=== PATIENT | female | born 1945 | race Caucasian/White ===

== ENCOUNTER 2018-08-26 20:53 | Inpatient (IN) | payer MEDICAID ==
[~2018-08-26] VITALS: Ht 162.6 cm; Wt 68.0 kg
[~2018-08-26 20:53] MED LIST: LEVO0.1T32 PO; OMEP40EC14 PO; [UNRECOGNIZED DRUG - OTHER] PO
[2018-08-26 21:26] VITALS: BP 124/76
--- NOTE | 2018-08-26 21:31 | NUR ---
PT AMBULATORY TO ER LOBBY W/ STEADY GAIT IN STABLE CONDITION.
[2018-08-26 22:36] LABS: BASOPHILS % (AUTO) 0.4 % (0.0-2.0); EOSINOPHILS % (AUTO) 0.2 % (0.0-4.0); HEMATOCRIT 38.2 % (36-48); HEMOGLOBIN 12.8 g/dL (12.0-16.0); LYMPHOCYTES # (AUTO) 1.2 K/uL (2.5-16.5); MEAN CORPUSCULAR HEMOGLOBIN 30 pg (27-31); MEAN CORPUSCULAR HGB CONC 33 g/dL (33-37); MEAN CORPUSCULAR VOLUME 88.3 fL (80-94); MONOCYTES # (AUTO) 0.4 K/uL (0.8-1.0); MONOCYTES % (AUTO) 3.4 % (1.7-9.3); NEUTROPHILS # (AUTO) 9.7 K/uL (1.8-7.7); PLATELET COUNT (AUTO) 376 K/uL (140-450); RED BLOOD CELL COUNT(AUTO) 4.33 MIL/uL (4.20-5.40); WHITE BLOOD COUNT (AUTO) 11.4 K/uL (4.8-10.8)
[2018-08-26 22:46] LABS: ANION GAP 9.3 (8-16); CARBON DIOXIDE 33.7 mmol/L (21-32); CHLORIDE 100 mmol/L (98-107); CREATININE 0.7 mg/dL (0.6-1.3); GLUCOSE 125 mg/dL (74-106); SODIUM SERUM 140 mmol/L (136-145); UREA NITROGEN, BLOOD 18 mg/dL (7-18)
[2018-08-26 22:52] LABS: ALBUMIN 3.2 g/dL (3.4-5.0); ASPARTATE AMINOTRANSFERASE 24 U/L (15-37); LIPASE 303 U/L (73-393); TOTAL BILIRUBIN 0.4 mg/dL (0.0-1.0)
--- NOTE | 2018-08-26 23:01 | NUR ---
PT AMBULATED TO BED 12.
[2018-08-26 23:03] LABS: APPEARANCE,URINE SL CLOUDY (CLEAR); BILIRUBIN,URINE NEGATIVE (NEGATIVE); BLOOD, URINE NEGATIVE (NEGATIVE); COLOR,URINE YELLOW (YELLOW); LEUKOCYTE ESTERASE ,URINE TRACE (NEGATIVE); NITRITE, URINE POSITIVE (NEGATIVE); UGLUCOSE NEGATIVE (NEGATIVE)
--- NOTE | 2018-08-26 23:05 | NUR ---
PATIENT PRESENTS ER WITH C/O ABDOMINAL PAIN. PT STATED THAT SHE HAS BEEN HAVING N/V. PT IS A/OX4; PATIENT STATES PAIN OF 6/10 AT THIS TIME; VSS; PATIENT POSITIONED FOR COMFORT; HOB ELEVATED; BEDRAILS UP X2; BED DOWN. ER MD MADE AWARE OF PT STATUS. FAMILY AT BEDSIDE.
[2018-08-26 23:13] LABS: RBC,URINE NONE SEEN /HPF (0-5); WBC,URINE 0-5 (RARE) /HPF (0-5)
[2018-08-27] MEDS ORDERED: POTASSIUM CHLORIDE 10 MEQ TABER PO ONE (00:15)
[2018-08-27] MEDS ORDERED: NACL 0.9% 1,000 ML IV ONE (00:15)
[2018-08-27] MEDS ORDERED: ONDANSETRON 4 MG/2 ML VIAL IVP ONE (00:15)
--- NOTE | 2018-08-27 00:30 | NUR ---
PT AMBULATED TO THE RESTROOM. PT TOLERATED WELL.
[2018-08-27] MEDS ORDERED: LEVOFLOXACIN 500 MG/D5W PREMIX 100 ML IV ONE (00:40)
[2018-08-27] MEDS ORDERED: MORPHINE SULFATE 4 MG/ML SYR IVP PRN (01:15)
[2018-08-27] MEDS ORDERED: KETOROLAC 30 MG/ML VIAL IVP ONE (01:15)
[2018-08-27] MEDS ORDERED: ONDANSETRON 4 MG/2 ML VIAL IM/IVP PRN (01:15)
[2018-08-27] MEDS ORDERED: DOCUSATE SODIUM 100 MG GELCAP PO PRN (01:15)
[2018-08-27] MEDS ORDERED: DEXT 5% / NACL 0.45% 1,000 ML IV ONE (01:30)
--- NOTE | 2018-08-27 01:30 | NUR ---
PT IS HAVING SOME PAIN, ER MD MADE AWARE
[2018-08-27 01:39] LABS: BARBITURATE, URINE NEG. ng/ml (NEG <=200); BENZODIAZEPINE, URINE NEG. ng/mL (NEG <=200); CANNABINOID, URINE NEG. ng/mL (NEG <=50); COCAINE, URINE NEG. ng/mL (NEG <=300); OPIATE, URINE NEG. ng/mL (NEG <=2000); PHENCYCLIDINE SCREEN,URINE NEG. ng/mL (NEG <=25)
[2018-08-27 01:51] LABS: CHOL/HDL RATIO 3.2 (1-4.5); MAGNESIUM 1.8 mg/dL (1.8-2.4); PHOSPHORUS 3.6 mg/dL (2.5-4.9); THYROID STIMULATING HORMONE 7.92 uIU/mL (0.34-3.74)
[2018-08-27 02:08] LABS: PROTHROMBIN TIME 9.9 secs (10.8-13.4)
[2018-08-27] MEDS ORDERED: ALBUTEROL SULFATE/IPRATROPIU 3 ML SOL IH PRN (02:10)
[2018-08-27] MEDS ORDERED: POTASSIUM CHLORIDE 40 MEQ, LIDOCAINE MPF 1% - 5 mL VIAL 25 MG in NACL 0.9% 250 ML IV ONE (02:10)
--- NOTE | 2018-08-27 02:18 | NUR ---
Patient will be admitted to care of DR. AGUIRRE. Admited to TELEMETRY. Will go to room 123A. Belongings list completed. Report to PHIL JONES.
--- NOTE | 2018-08-27 02:18 | NUR ---
Pt report given to ,PHIL RN. Transfer of care at this time.VSS
--- NOTE | 2018-08-27 02:20 | NUR ---
RECEIVED REPORT FROM BOOK PACKER ANGÉLICA FOR CONTINUITY OF CARE. PT A/OX4 ON ROOM AIR, LATVIAN SPEAKING. PT AMBULATES WITH STEADY GAIT USING A CANE. SKIN IS INTACT. PT HAS A 20G IV TO LEFT FOREARM BY AC, ASYMPTOMATIC AND INTACT. VITAL SIGNS WITHIN NORMAL LIMITS. PT STABLE, DENIES HAVING ANY PAIN, NO SIGNS OF DISTRESS NOTED AT THIS TIME. PT POSITIONED FOR COMFORT. BED IN LOWEST POSITION, BED ALARM ON. WILL CONTINUE TO MONITOR. OBTAINED MRSA SWAB AND SENT TO LAB. CHANGED PT INTO YELLOW GOWN AND INITIATED FALL RISK PROTOCOL. PUT ALLERGIES ARMBAND ON PT WITH ALLERGY TO ACETAMINOPHEN WRITTEN ON IT, BUT THERE ARE NO FALL RISK YELLOW ARMBANDS AVAILABLE, CHARGE NURSE IS AWARE.
[2018-08-27] MEDS ORDERED: LIDOCAINE MPF 1% 5mL VIAL ONE (02:42)
[2018-08-27] MEDS ORDERED: LOSA50TA66 PO (02:44)
[2018-08-27 03:00] VITALS: BP 134/73
[2018-08-27] MEDS ORDERED: INFLUENZA VIRUS VACCINE QUAD 0.5 ML SYR IMVAC PRN (03:35)
--- NOTE | 2018-08-27 03:45 | NUR ---
INSERTED NG TUBE. PT TOLERATED WELL.
--- NOTE | 2018-08-27 03:46 | NUR ---
VERIFIED PLACEMENT OF NGT BY AUSCULTATING BUT SALES AND SUPPORT CENTER AGENT CHAO SAID SHE ALREADY SPOKE TO DR HUMPHREYS TO ORDER CXR TO VERIFY PLACEMENT.
--- NOTE | 2018-08-27 04:00 | NUR ---
VITAL SIGNS WITHIN NORMAL LIMITS. PT STABLE, DENIES HAVING ANY PAIN, NO SIGNS OF DISTRESS NOTED AT THIS TIME. PT POSITIONED FOR COMFORT. BED IN LOWEST POSITION, BED ALARM ON. WILL CONTINUE TO MONITOR.
[2018-08-27] MEDS ORDERED: NITROGLYCERIN 0.4 MG TAB SL ONE (04:55)
--- NOTE | 2018-08-27 05:27 | NUR ---
PT C/O INTERMITTENT RIGHT UPPER CHEST PAIN. MADE DR HUMPHREYS AWARE AND SHE ORDERED NITROSTAT FOR PT. ADMINISTERED NITROSTAT AND PT TOLERATED WELL.
[2018-08-27 06:18] LABS: ANION GAP 10.3 (8-16); BASOPHILS % (AUTO) 0.2 % (0.0-2.0); CARBON DIOXIDE 29.3 mmol/L (21-32); CHLORIDE 105 mmol/L (98-107); CREATININE 0.5 mg/dL (0.6-1.3); EOSINOPHILS % (AUTO) 0.2 % (0.0-4.0); GLUCOSE 99 mg/dL (74-106); HEMATOCRIT 30.2 % (36-48); HEMOGLOBIN 10.1 g/dL (12.0-16.0); LYMPHOCYTES # (AUTO) 0.9 K/uL (2.5-16.5); LYMPHOCYTES % (AUTO) 12.5 % (20.5-51.1); MEAN CORPUSCULAR HEMOGLOBIN 30 pg (27-31); MEAN CORPUSCULAR HGB CONC 34 g/dL (33-37); MEAN CORPUSCULAR VOLUME 88.6 fL (80-94); MONOCYTES # (AUTO) 0.4 K/uL (0.8-1.0); MONOCYTES % (AUTO) 5.9 % (1.7-9.3); NEUTROPHILS # (AUTO) 5.7 K/uL (1.8-7.7); NEUTROPHILS % (AUTO) 81.2 % (42.2-75.2); PLATELET COUNT (AUTO) 278 K/uL (140-450); POTASSIUM 3.6 mmol/L (3.5-5.1); RED BLOOD CELL COUNT(AUTO) 3.41 MIL/uL (4.20-5.40); RED CELL DISTRIBUTION WIDTH 13.5 % (11.6-13.7); SODIUM SERUM 141 mmol/L (136-145); UREA NITROGEN, BLOOD 14 mg/dL (7-18); WHITE BLOOD COUNT (AUTO) 7.1 K/uL (4.8-10.8)
[2018-08-27 06:44] LABS: MAGNESIUM 1.5 mg/dL (1.8-2.4); PHOSPHORUS 3.1 mg/dL (2.5-4.9)
--- NOTE | 2018-08-27 07:20 | NUR ---
ENDORSED PT TO DAY SHIFT KAREN WEBSTER FOR CONTINUITY OF CARE. PT IN STABLE CONDITION.
--- NOTE | 2018-08-27 07:22 | NUR ---
RECEIVED BEDSIDE REPORT FROM FRICKERTRON CHECKER NURSE. PT IS AOX4. DENIES PAIN. NO SIGNS OF DISTRESS NOTED. RA. RESPIRATION IS EVEN AND UNLABORED. NGT IS IN PLACE AND CONNECT TO SUCTION. PT TOLERATED WELL. IV IS ON L AC 20G , ASYMPTOMATIC AND PATENT, INFUSING PER MD ORDER. IV SITE IS CLEAN AND DRY. SKIN CLEAN, DRY AND INTACT. PT IS AMBULATE WITH ASSIST. DISCUSS PLAN OF CARE WITH PATIENT, PATIENT VERBALIZED UNDERSTANDING. SAFETY MEASURES IN PLACE. BED IN LOW POSITION, CALL LIGHT WITHIN REACH.
[2018-08-27 08:00] VITALS: BP 130/72
--- NOTE | 2018-08-27 08:26 | NUR ---
PATIENT HAS BEEN SCREENED AND CATEGORIZED HIGH NUTRITION RISK. PATIENT WILL BE SEEN WITHIN 1-2 DAYS OF ADMISSION. 08/27/18-08/28/[address]
[2018-08-27] MEDS ORDERED: MAG SULF 2000 MG/WATER PREMIX 50 ML IV SCH (08:51)
--- NOTE | 2018-08-27 09:54 | NUR ---
ASSISTED PT TO GO TO THE BATHROOM. PT HAS 1 BM. INSTRUCTED PT TO PRESS THE CALL LIGHT FOR ANY ASSISTANCE.
[2018-08-27] MEDS: LACTOBACILLUS RHAMNOSUS GG 1 EACH CAP PO SCH (10:31)
[2018-08-27] MEDS: LEVOTHYROXINE 0.1 MG TAB PO SCH (10:31)
[2018-08-27] MEDS: ATORVASTATIN 20 MG TAB PO SCH (10:31)
[2018-08-27] MEDS: PANTOPRAZOLE 40 MG TABEC PO SCH (10:31)
[2018-08-27] MEDS: METOPROLOL SUCCINATE 50 MG TABER PO SCH ×2 (10:32→20:07)
[2018-08-27] MEDS: ASPIRIN 81 MG TAB.CHEW PO SCH (10:32)
[2018-08-27] MEDS: LOSARTAN 50 MG TAB PO SCH (10:33)
--- NOTE | 2018-08-27 10:35 | NUR ---
ADMINISTERED MEDS PER MD ORDER VIA NASOGASTRIC TUBE. PT TOLERATED WELL. NO SIGNS OF DISTRESS NOTED. FAMILY IS AT BEDSIDE. SAFETY MEASURES IN PLACE.
[2018-08-27 12:00] VITALS: BP 148/71
--- NOTE | 2018-08-27 12:20 | NUR ---
CALLED FILM TECHNICIAN [employer] AND SPOKE TO SAUNDRA, FILM TECHNICIAN #[id number] TO EXPLAIN THE COMPUTED MONOGRAPHY CHEST X-RAY W/WO CONTRAST INTRAVENOUSLY PROCEDURE AND OBTAINED CONSENT FROM PT. PT VERBALIZED UNDERSTANDING AND SIGNED THE CONSENT FORM.
--- NOTE | 2018-08-27 14:20 | NUR ---
RADIOLOGIST PICKED UP PT FROM THE UNIT FOR THE CT CHEST X-RAY. PT IS IN A STABLE CONDITION. DAUGHTER BENNY IS AT BEDSIDE.
--- NOTE | 2018-08-27 14:39 | NUR ---
PT CAME BACK FROM RADIOLOGY.
--- NOTE | 2018-08-27 15:10 | NUR ---
D/C NGT. PT TOLERATED WELL. NO SIGNS OF DISTRESS NOTED.
[2018-08-27 16:00] VITALS: BP 135/67
--- NOTE | 2018-08-27 17:05 | NUR ---
ASSISTED PT TO USE THE BATHROOM AND GET BACK ON BED. SAFETY MEASURES IN PLACE.
[2018-08-27] MEDS ORDERED: NACL 0.9% 1,000 ML IV SCH (17:40)
--- NOTE | 2018-08-27 18:20 | NUR ---
PT IS EATING DINNER ON BED. TOLERATED WELL. DENIES OF NAUSEA AND VOMITING. NO SIGNS OF DISTRESS NOTED. DAUGHTER IS AT BEDSIDE.
--- NOTE | 2018-08-27 19:16 | NUR ---
GAVE BEDSIDE REPORT TO MOP MACHINE OPERATOR NURSE FOR CONTINUITY OF CARE. PT IS IN STABLE CONDITION.
--- NOTE | 2018-08-27 19:17 | NUR ---
REPORT RECEIVED FROM AM NURSE AT BEDSIDE. PT IN STABLE CONDITION. AAOX4. INTRODUCED SELF TO PT. BOARD UPDATED. PT IS ALBANIAN SPEAKING ONLY. NO COMPLAINTS OF PAIN. NO SOB. AFEBRILE. IV SITE L AC 20G RUNNING NS@20ML/HR PATENT AND INTACT. SKIN WARM, DRY, AND INTACT WITH NO OPEN WOUNDS. BED LOCKED IN LOW POSITION. CALL [place] WITHIN REACH. SAFETY PRECAUTION IN PLACE. ALL NEEDS MET AT THIS TIME.
[2018-08-27 20:00] VITALS: BP 133/76
--- NOTE | 2018-08-27 20:07 | NUR ---
METOPROLOL GIVEN PO. HEPARIN GIVEN SUBQ. PT TOLERATED WELL.
--- NOTE | 2018-08-27 22:30 | NUR ---
PT SLEEPING COMFORTABLY IN BED. NO S/S OF DISTRESS NOTED. NO COMPLAINTS OF PAIN. NO SOB. AFEBRILE. WILL CONTINUE TO MONITOR.
[2018-08-28] VITALS: BP 120/68
--- NOTE | 2018-08-28 00:30 | NUR ---
PT SLEEPING COMFORTABLY SUPINE. NO S/S OF DISTRESS NOTED. WILL CONTINUE TO MONITOR.
--- NOTE | 2018-08-28 02:00 | NUR ---
PT SLEEPING COMFORTABLY. NO S/S OF DISTRESS NOTED. BREATHING EVEN, UNLABORED, AND WNL. WILL CONTINUE TO MONITOR.
--- NOTE | 2018-08-28 03:55 | NUR ---
PT SLEEPING COMFORTABLY BUT AROUSABLE. NO S/S OF DISTRESS NOTED. WILL CONTINUE TO MONITOR.
[2018-08-28 04:00] VITALS: BP 127/75
--- NOTE | 2018-08-28 06:00 | NUR ---
PT AWAKE AND ALERT LAYING IN BED. NO S/S OF DISTRESS NOTED. NO COMPLAINTS OF PAIN. NO SOB. AFEBRILE. WILL CONTINUE TO MONITOR.
--- NOTE | 2018-08-28 07:10 | NUR ---
REPORT GIVEN TO AM NURSE AT BEDSIDE. PT IN STABLE CONDITION.
--- NOTE | 2018-08-28 07:11 | NUR ---
RECEIVED REPORT FROM DIGESTER HAND NURSE. PT IN STABLE CONDITION. RESPIRATIONS EVEN AND UNLABORED. IV INTACT AND PATENT. CALL LIGHT AT BEDSIDE. BED IN LOW POSITION. BED ALARM ON. SAFETY MEASURES IN PLACE. WILL CONTINUE TO MONITOR.
[2018-08-28 07:33] LABS: BASOPHILS % (AUTO) 0.7 % (0.0-2.0); EOSINOPHILS # (AUTO) 0.1 K/uL (0-0.4); HEMOGLOBIN 10.3 g/dL (12.0-16.0); MEAN CORPUSCULAR HEMOGLOBIN 30 pg (27-31); MEAN CORPUSCULAR HGB CONC 33 g/dL (33-37); MEAN CORPUSCULAR VOLUME 89.3 fL (80-94); MONOCYTES # (AUTO) 0.2 K/uL (0.8-1.0); MONOCYTES % (AUTO) 7.6 % (1.7-9.3); NEUTROPHILS # (AUTO) 1.9 K/uL (1.8-7.7); NEUTROPHILS % (AUTO) 59.7 % (42.2-75.2); PLATELET COUNT (AUTO) 261 K/uL (140-450); RED BLOOD CELL COUNT(AUTO) 3.47 MIL/uL (4.20-5.40); RED CELL DISTRIBUTION WIDTH 13.8 % (11.6-13.7); WHITE BLOOD COUNT (AUTO) 3.2 K/uL (4.8-10.8)
[2018-08-28 08:00] VITALS: BP 108/62
[2018-08-28 08:22] LABS: MAGNESIUM 1.9 mg/dL (1.8-2.4); PHOSPHORUS 3.3 mg/dL (2.5-4.9)
[2018-08-28 08:30] LABS: ANION GAP 10.3 (8-16); CARBON DIOXIDE 29.5 mmol/L (21-32); CHLORIDE 106 mmol/L (98-107); CREATININE 0.6 mg/dL (0.6-1.3); GLUCOSE 85 mg/dL (74-106); POTASSIUM 3.8 mmol/L (3.5-5.1); SODIUM SERUM 142 mmol/L (136-145); UREA NITROGEN, BLOOD 6 mg/dL (7-18)
[2018-08-28] MEDS ORDERED: CEPH500C16 PO (08:54)
[2018-08-28] MEDS ORDERED: MIRABULK PO (08:54)
[2018-08-28] MEDS: LOSARTAN 50 MG TAB PO SCH (09:00)
[2018-08-28] MEDS: METOPROLOL SUCCINATE 50 MG TABER PO SCH (09:00)
--- NOTE | 2018-08-28 09:00 | NUR ---
GAVE ORDERED MEDICATIONS AT THIS TIME USING MACHINE HEDDLE CLEANER BETHANY ([id number]). ALL QUESTIONS WERE ANSWERED AT THIS TIME. PT TOLERATED WELL. WILL CONTINUE TO MONITOR.
[2018-08-28] MEDS: LACTOBACILLUS RHAMNOSUS GG 1 EACH CAP PO SCH (09:05)
[2018-08-28] MEDS: PANTOPRAZOLE 40 MG TABEC PO SCH (09:06)
[2018-08-28] MEDS: ATORVASTATIN 20 MG TAB PO SCH (09:06)
[2018-08-28] MEDS: ASPIRIN 81 MG TAB.CHEW PO SCH (09:06)
[2018-08-28] MEDS: LEVOTHYROXINE 0.1 MG TAB PO SCH (09:06)
[2018-08-28 12:00] VITALS: BP 119/64
[2018-08-28 12:22] LABS: T4 (THYROXINE) 10.5 ug/dL (4.5-12.0)
--- NOTE | 2018-08-28 12:44 | NUR ---
USED ECONOMIC FORECASTER MANDY ([id number]) FOR DISCHARGE INSTRUCTIONS. ALL QUESTIONS ANSWERED AT THIS TIME. PT VERBALIZED UNDERSTANDING.
--- NOTE | 2018-08-28 12:45 | NUR ---
GAVE DISCHARGE INSTRUCTIONS AND ADVISED TO FISH NET STRINGER MEDICATIONS FROM PT PREFERRED PHARMACY, PT VERBALIZED UNDERSTANDING OF INSTRUCTIONS. IV REMOVED, LUMEN STILL INTACT. FLU VACCINE GIVEN, PT TOLERATED WELL. ID BAND REMOVED. PT WHEELED TO LOBBY IN WHEELCHAIR WHERE FAMILY WAS WAITING WITH CAR. PT IN STABLE CONDITION.
--- NOTE | 2018-08-28 12:46 | NUR ---
COMPUTER DOWN AT TIME OF DISCHARGE. SEE DISCHARGE PAPERWORK IN RECORDS.
--- NOTE | 2018-08-28 15:14 | NUR ---
GAVE ORDERED MEDICATIONS AT THIS TIME USING SALES CONTRACTS ANALYST BETHANY ([id number]). ALL QUESTIONS WERE ANSWERED AT THIS TIME. PT TOLERATED WELL. WILL CONTINUE TO MONITOR. Addendum: 08/28/18 at 1516 by Porsha Ornelas RN NOTE FOR 0900 MEDICATIONS
== END 2018-08-28 12:45 | disposition home or self-care (01) | DRG 247 ==
LOC: MED 20:53 → MTU 08-27 01:20
PROVIDERS: ADMIT General Practice; ATTEND General Practice
PROC: 0D9670Z Drainage of Stomach with Drainage Device, Via Natural or Artificial Opening (ICD-10-PCS; principal; 2018-08-27)
DX: K56.609 Unspecified intestinal obstruction, unspecified as to partial versus complete obstruction (principal); E44.0 Moderate protein-calorie malnutrition; N39.0 Urinary tract infection, site not specified; E87.6 Hypokalemia; I10 Essential (primary) hypertension; J43.9 Emphysema, unspecified; E03.9 Hypothyroidism, unspecified; K21.9 Gastro-esophageal reflux disease without esophagitis; J45.909 Unspecified asthma, uncomplicated; Z68.25 Body mass index [BMI] 25.0-25.9, adult; Z85.42 Personal history of malignant neoplasm of other parts of uterus; Z90.710 Acquired absence of both cervix and uterus; Z79.899 Other long term (current) drug therapy; Z83.3 Family history of diabetes mellitus; Z82.49 Family history of ischemic heart disease and other diseases of the circulatory system; Z90.49 Acquired absence of other specified parts of digestive tract
CPT/HCPCS: 36415; 71045; 71270; 74018; 74250; 80048; 80053; 80305; 81001; 82150; 83036; 83605; 83690; 83735; 83880; 84100; 84436; 84443; 84484; 85025; 85610; 85730; 87040; 87081; 93005; 96361; 96365; 96375; 99285; J0696; J1644; J1885; J1956; J2001; J2405; J3475; J3480; J7030; J7060; Q0092; Q9967

== ENCOUNTER 2018-09-21 18:10 | Inpatient (IN) | payer MEDICAID ==
--- NOTE | 2018-09-20 22:15 | NUR ---
RECEIVED REPORT FROM ER NURSE AT BEDSIDE. PT ARRIVED TO UNIT VIA GURNEY AND AMBULATED TO BED-STEADY. PT FAMILY AT BEDSIDE. PT AOX4-KAZAKH SPEAKING, ON ROOM AIR WITH LEFT AC #20G, AND NG TUBE IN PLACE TO INTERMITTENT SUCTIONING. DISCUSSED PLAN OF CARE AND PT VERBALIZED UNDERSTANDING. VITAL SIGNS TAKEN AND TOLERATED WELL. MRSA NARES COLLECTED. ORIENTED PT TO BEDROOM, BATHROOM, BED AND CALL LIGHT. BED IN LOWEST POSITION, BED BREAKS ON, BOTH SIDE RAILS UP AND FALL PRECAUTIONS IN PLACE. BEDSIDE TABLE AND CALL LIGHT ARE WITHIN REACH. WILL CONTINUE TO MONITOR.
[~2018-09-21] VITALS: Ht 157.5 cm; Wt 56.2 kg
[~2018-09-21 18:10] MED LIST changes: +CEPH500C16 PO; +LOSA50TA66 PO; +MIRABULK PO; -[UNRECOGNIZED DRUG - OTHER] PO
[2018-09-21 18:24] VITALS: BP 141/91
--- NOTE | 2018-09-21 18:28 | NUR ---
PT TRIAGED AND AMBULATED TO ER LOBBY, URINE CUP GIVEN TO PT
--- NOTE | 2018-09-21 18:30 | NUR ---
PT AMBULATED TO BED 4 AT THIS TIME
--- NOTE | 2018-09-21 18:45 | NUR ---
PT BIB FAMILY TO THE ED WITH THE CHIEF C/O ABDOMINAL PAIN X1 DAY. DENIES DIARRHEA. REPORTS NAUSEA AND VOMITING X1. NO BLOOD IN VOMIT. STATES ABDOMINAL PAIN OF 10/10. ABDOMEN SOFT, ROUND AND TENDER. ACTIVE BOWEL SOUND. DENIES BURNING URINATION. DENIES ANY OTHER PROBLEM AT THIS TIME. ER MD AWARE.
[2018-09-21 19:07] LABS: ALBUMIN 3.9 g/dL (3.4-5.0); AMYLASE 158 U/L (25-115); ANION GAP 12.6 (8-16); ASPARTATE AMINOTRANSFERASE 29 U/L (15-37); CARBON DIOXIDE 33.8 mmol/L (21-32); CHLORIDE 99 mmol/L (98-107); CREATININE 0.7 mg/dL (0.6-1.3); GLUCOSE 117 mg/dL (74-106); LIPASE 421 U/L (73-393); POTASSIUM 3.4 mmol/L (3.5-5.1); SODIUM SERUM 142 mmol/L (136-145); TOTAL BILIRUBIN 0.4 mg/dL (0.0-1.0); UREA NITROGEN, BLOOD 17 mg/dL (7-18)
--- NOTE | 2018-09-21 19:11 | NUR ---
REPORT GIVEN TO PRINT SHOP STENOGRAPHER RN.
--- NOTE | 2018-09-21 19:12 | NUR ---
RECEIVED REPORT FROM AM SHIFT
[2018-09-21 19:21] LABS: APPEARANCE,URINE SL CLOUDY (CLEAR); BILIRUBIN,URINE NEGATIVE (NEGATIVE); BLOOD, URINE NEGATIVE (NEGATIVE); COLOR,URINE YELLOW (YELLOW); LEUKOCYTE ESTERASE ,URINE NEGATIVE (NEGATIVE); NITRITE, URINE POSITIVE (NEGATIVE); UGLUCOSE NEGATIVE (NEGATIVE)
[2018-09-21 19:26] LABS: BASOPHILS % (AUTO) 0.3 % (0.0-2.0); EOSINOPHILS % (AUTO) 0.5 % (0.0-4.0); HEMATOCRIT 41.1 % (36-48); HEMOGLOBIN 13.8 g/dL (12.0-16.0); LYMPHOCYTES # (AUTO) 2.7 K/uL (2.5-16.5); LYMPHOCYTES % (AUTO) 30.9 % (20.5-51.1); MEAN CORPUSCULAR HEMOGLOBIN 29 pg (27-31); MEAN CORPUSCULAR HGB CONC 34 g/dL (33-37); MEAN CORPUSCULAR VOLUME 87.1 fL (80-94); MONOCYTES # (AUTO) 0.6 K/uL (0.8-1.0); NEUTROPHILS # (AUTO) 5.4 K/uL (1.8-7.7); NEUTROPHILS % (AUTO) 61.3 % (42.2-75.2); PLATELET COUNT (AUTO) 293 K/uL (140-450); RED BLOOD CELL COUNT(AUTO) 4.71 MIL/uL (4.20-5.40); RED CELL DISTRIBUTION WIDTH 13.6 % (11.6-13.7); WHITE BLOOD COUNT (AUTO) 8.8 K/uL (4.8-10.8)
[2018-09-21] MEDS ORDERED: DICYCLOMINE 20 MG/2 ML VIAL IM ONE (19:45)
--- NOTE | 2018-09-21 21:18 | NUR ---
Dr. Yan evaluating patient at bedside.
[2018-09-21] MEDS ORDERED: MORPHINE SULFATE 4 MG/ML SYR IVP ONE (21:20)
[2018-09-21] MEDS ORDERED: ONDANSETRON 4 MG/2 ML VIAL IVP ONE (21:20)
[2018-09-21] MEDS ORDERED: NACL 0.9% 1,000 ML IV ONE (21:20)
[2018-09-21] MEDS ORDERED: NACL 0.9% 1,000 ML IV SCH (21:24)
[2018-09-21] MEDS ORDERED: ONDANSETRON 4 MG/2 ML VIAL IM/IVP PRN (21:25)
[2018-09-21] MEDS ORDERED: MORPHINE SULFATE 2 MG/ML SYR IVP PRN (21:25)
[2018-09-21] MEDS ORDERED: DOCUSATE SODIUM 100 MG GELCAP PO PRN (21:25)
[2018-09-21] MEDS ORDERED: DEXT 5% / NACL 0.45% 1,000 ML IV ONE (21:35)
[2018-09-21] MEDS ORDERED: ALBUTEROL SULFATE/IPRATROPIU 3 ML SOL IH PRN (21:40)
[2018-09-21] MEDS: DEXT 5% / NACL 0.45% 1,000 ML IV SCH (21:45)
--- NOTE | 2018-09-21 21:50 | NUR ---
Ng tube inserted. Placement checked by auscaltation and xr. Pt tolerated well.
--- NOTE | 2018-09-21 21:50 | NUR ---
X-Ray at bedside.
[2018-09-21 21:59] LABS: MAGNESIUM 1.8 mg/dL (1.8-2.4); PHOSPHORUS 5.2 mg/dL (2.5-4.9); THYROID STIMULATING HORMONE 2.64 uIU/mL (0.34-3.74)
[2018-09-21 22:13] LABS: PROTHROMBIN TIME 9.7 secs (10.8-13.4)
[2018-09-21 22:15] VITALS: BP 132/76
--- NOTE | 2018-09-21 22:22 | NUR ---
ENDORSED CARE TO 121B FOR CONTINUITY OF CARE
--- NOTE | 2018-09-21 23:05 | NUR ---
SCHEDULED MEDICATION ROCEPHIN GIVEN AND TOLERATED WELL. NO S/S OF RESPIRATORY DISTRESS OR DISCOMFORT NOTED AT THIS TIME. WILL CONTINUE TO MONITOR.
[2018-09-21] MEDS ORDERED: cefTRIAXone 1,000 MG VIAL ONE (23:09)
--- NOTE | 2018-09-22 | NUR ---
PT SLEEPING IN BED. NO S/S OF RESPIRATORY DISTRESS OR DISCOMFORT NOTED AT THIS TIME. WILL CONTINUE TO MONITOR.
--- NOTE | 2018-09-22 02:00 | NUR ---
PT ACCIDENTALLY PULLED OUT NG TUBE WHILE USING BEDSIDE COMMODE. ASSISTED PT BY RE-INSERTING NG TUBE. PT TOLERATED WELL. DR. FINLEY AWARE AND WILL PLACE NEW ORDER FOR CXR FOR NG TUBE PLACEMENT. CHARGE NURSE NATASHA-KAREN ALSO AWARE. NO S/S OF RESPIRATORY DISTRESS OR DISCOMFORT NOTED AT THIS TIME. WILL CONTINUE TO MONITOR.
--- NOTE | 2018-09-22 04:00 | NUR ---
PT CONTINUES TO SLEEP IN BED. NO S/S OF RESPIRATORY DISTRESS OR DISCOMFORT NOTED AT THIS TIME. WILL CONTINUE TO MONITOR.
[2018-09-22] MEDS: DEXT 5% / NACL 0.45% 1,000 ML IV SCH ×4 (04:11→21:12)
[2018-09-22 05:43] LABS: BARBITURATE, URINE NEG. ng/ml (NEG <=200); BENZODIAZEPINE, URINE NEG. ng/mL (NEG <=200); CANNABINOID, URINE NEG. ng/mL (NEG <=50); COCAINE, URINE NEG. ng/mL (NEG <=300); OPIATE, URINE NEG. ng/mL (NEG <=2000); PHENCYCLIDINE SCREEN,URINE NEG. ng/mL (NEG <=25)
--- NOTE | 2018-09-22 06:00 | NUR ---
PT CONTINUES TO SLEEP IN BED. NO S/S OF RESPIRATORY DISTRESS OR DISCOMFORT NOTED AT THIS TIME. WILL CONTINUE TO MONITOR.
--- NOTE | 2018-09-22 07:19 | NUR ---
ENDORSED TO DAY SHIFT NURSE DOV-RN FOR CONTINUITY OF CARE
--- NOTE | 2018-09-22 07:20 | NUR ---
RECEIVED BEDSIDE REPORT FROM EMPLOYMENT PROGRAM REPRESENTATIVE NURSE. PATIENT IS AWAKE, ALERT AND ORIENTEDX4. MOLDOVAN SPEAKER. NO SIGNS OF DISTRESS ON RA. SKIN IS INTACT. NG TUBE IN L NOSTRIL, AWAITING CHEST XRAY TO CHECK IF IN PLACE. BEDSIDE COMMODE AVAILABLE. AMBULATE W ASSIST, FALL RISK PROTOCOL IN PLACE. L AC 20G INFUSING D5 1/2NS AT 100 CLEAN, DRY AND INTACT. PATIENT IS NPO, SIGNS POSTED. BED IN LOW POSITION. CALL LIGHT WITHIN REACH. PATIENT IS ABLE TO VERBALIZE NEEDS. WILL CONTINUE TO MONITOR THE PATIENT
[2018-09-22 07:23] LABS: BASOPHILS % (AUTO) 0.2 % (0.0-2.0); EOSINOPHILS % (AUTO) 0.5 % (0.0-4.0); HEMATOCRIT 34.3 % (36-48); HEMOGLOBIN 11.7 g/dL (12.0-16.0); LYMPHOCYTES # (AUTO) 1.5 K/uL (2.5-16.5); LYMPHOCYTES % (AUTO) 26.1 % (20.5-51.1); MEAN CORPUSCULAR HEMOGLOBIN 30 pg (27-31); MEAN CORPUSCULAR HGB CONC 34 g/dL (33-37); MEAN CORPUSCULAR VOLUME 87.1 fL (80-94); MONOCYTES # (AUTO) 0.5 K/uL (0.8-1.0); MONOCYTES % (AUTO) 9.5 % (1.7-9.3); NEUTROPHILS # (AUTO) 3.7 K/uL (1.8-7.7); NEUTROPHILS % (AUTO) 63.7 % (42.2-75.2); PLATELET COUNT (AUTO) 229 K/uL (140-450); RED BLOOD CELL COUNT(AUTO) 3.94 MIL/uL (4.20-5.40); RED CELL DISTRIBUTION WIDTH 13.6 % (11.6-13.7); WHITE BLOOD COUNT (AUTO) 5.7 K/uL (4.8-10.8)
[2018-09-22 07:47] LABS: ANION GAP 10.4 (8-16); CARBON DIOXIDE 33.2 mmol/L (21-32); CHLORIDE 99 mmol/L (98-107); CREATININE 0.6 mg/dL (0.6-1.3); GLUCOSE 118 mg/dL (74-106); POTASSIUM 3.6 mmol/L (3.5-5.1); SODIUM SERUM 139 mmol/L (136-145); UREA NITROGEN, BLOOD 15 mg/dL (7-18)
[2018-09-22 07:50] LABS: MAGNESIUM 1.7 mg/dL (1.8-2.4)
[2018-09-22 08:00] VITALS: BP 130/74
--- NOTE | 2018-09-22 08:20 | NUR ---
ADVANCED NG TUBE RECOMMENDED BY CHEST XRAY. TOLD DR DORAN TO ORDER ANOTHER CHEST XRAY FOR PLACEMENT. WILL CONTINUE TO MONITOR THE PATIENT
[2018-09-22] MEDS ORDERED: POLYETHYLENE GLYCOL 17 GM/PKT PO SCH (09:00)
[2018-09-22] MEDS ORDERED: MAG SULF 2000 MG/WATER PREMIX 50 ML IV SCH (09:00)
--- NOTE | 2018-09-22 09:55 | NUR ---
NG TUBE CAME OUT. PATIENT HAD COUGHED SO HARD A FEW TIMES AND IT CAME OUT. WILL PLACE A NEW NG TUBE
--- NOTE | 2018-09-22 10:17 | NUR ---
NEW NG TUBE PLACE. DR DORAN AWARE SHE SAID SHE WILL ORDER NEW CHEST XRAY. PORTIA CLEMONS
--- NOTE | 2018-09-22 11:04 | NUR ---
CHEST XRAY BEING DONE AT THIS TIME. PATIENT IN NO DISTRESS. DAUGHTER AT BEDSIDE
[2018-09-22] MEDS ORDERED: MORPHINE SULFATE 2 MG/ML SYR IVP SCH (12:15)
[2018-09-22] MEDS: CALCIUM ACETATE 667 MG TAB PO SCH (12:25)
[2018-09-22] MEDS: LOSARTAN 50 MG TAB PO SCH (12:25)
[2018-09-22] MEDS: PANTOPRAZOLE 40 MG TABEC PO SCH (12:25)
[2018-09-22] MEDS: LEVOTHYROXINE 0.1 MG TAB PO SCH (12:25)
[2018-09-22] MEDS: LACTOBACILLUS RHAMNOSUS GG 1 EACH CAP PO SCH (12:25)
--- NOTE | 2018-09-22 12:45 | NUR ---
OK TO USE NG TUBE. ALL MORNING MEDICATIONS GIVEN AT THIS TIME. CHECKED FOR PLACEMENT USING SWOOSH. SWOOSH HEARD. NO RESIDUAL. ADMINISTERED CRUSHED MEDS. FLUSHED BEFORE AND AFTER. PATIENT TOLERATED WELL. EDUCATED ON SIDE EFFECTS. ADMINISTERED CINDY PAIN MED. PATIENT TOLERATED WELL. SIDE EFFECTS EXPLAINED. WILL CONTINUE TO MONITOR THE PATIENT. Addendum: 09/22/18 at 1248 by Nusrat Thompson RN BP AT THIS TIME WAS 178/85 HR 92. PATIENT WAS VOMITING AT THIS TIME.
--- NOTE | 2018-09-22 14:47 | NUR ---
PATIENT HAS NO COMPLAINTS AT THIS TIME. SHE SAID SHE HAS TOLERABLE PAIN AND DOES NOT NEED PAIN MEDS AT THIS TIME. DAUGHTER AT BEDSIDE. WILL CONTINUE TO MONITOR THE PATIENT. BED IN LOW POSITION. CALL LIGHT WITHIN REACH. PATIENT ABLE TO MAKE NEEDS KNOWN
[2018-09-22 16:00] VITALS: BP 116/69
--- NOTE | 2018-09-22 16:00 | NUR ---
PATIENT RESTING IN BED. NO SIGNS OF DISTRESS. VITALS WNL. WILL CONTINUE TO MONITOR THE PATIENT
--- NOTE | 2018-09-22 16:02 | NUR ---
PT HAS NO SIGNS OF SOB AT THIS TIME. PT RESTING WELL. WILL CONTINUE TO MONITOR PT.
--- NOTE | 2018-09-22 17:41 | NUR ---
PATIENT IS SLEEPING, NO SIGNS OF DISTRESS. CALL LIGHT WITHIN REACH. WILL CONTINUE TO MONITOR THE PATIENT
--- NOTE | 2018-09-22 19:10 | NUR ---
gave bedside report to assistant casino shift manager nurse. patient endorsed in stable condition
--- NOTE | 2018-09-22 19:11 | NUR ---
RECEIVED REPORT FROM DAY SHIFT NURSE DOV-RN AT BEDSIDE. PT AOX4-URUGUAYAN SPEAKING, ON ROOM AIR WITH LEFT AC #20G, AND NG TUBE IN PLACE. DISCUSSED PLAN OF CARE AND PT VERBALIZED UNDERSTANDING. BED IN LOWEST POSITION, BED BREAKS ON, BOTH SIDE RAILS UP AND FALL PRECAUTIONS IN PLACE. BEDSIDE TABLE, COMMODE AND CALL LIGHT ARE WITHIN REACH. WILL CONTINUE TO MONITOR.
[2018-09-22 20:00] VITALS: BP 106/62
[2018-09-22] MEDS ORDERED: oxyCODONE 5 MG TAB PO PRN (20:00)
--- NOTE | 2018-09-22 20:00 | NUR ---
VITAL SIGNS TAKEN AND TOLERATED WELL. NO S/S OF RESPIRATORY DISTRESS OR DISCOMFORT NOTED AT THIS TIME. WILL CONTINUE TO MONITOR.
--- NOTE | 2018-09-22 20:22 | NUR ---
SCHEDULED MEDICATION GIVEN AND TOLERATED WELL. PT C/O PAIN 4/10 IN ABDOMEN- SPOKE WITH DR. FINLEY REGARDING PAIN REQUESTING AN ORDER FOR PAIN WITH LOWER GRADE SINCE ONLY MORPHINE AVAILABLE FOR PAIN LEVEL 7-10. MD ORDERED ROXICODONE FOR PAIN LEVEL (4-6). PT TOLERATED WELL. NO S/S OF RESPIRATORY DISTRESS OR DISCOMFORT NOTED AT THIS TIME. WILL CONTINUE TO MONITOR.
--- NOTE | 2018-09-22 21:06 | NUR ---
SCHEDULED MEDIATION ROCEPHIN GIVEN AND TOLERATED WELL. NO S/S OF RESPIRATORY DISTRESS OR DISCOMFORT NOTED AT THIS TIME. WILL CONTINUE TO MONITOR.
--- NOTE | 2018-09-22 22:00 | NUR ---
DR. FINLEY CALLED TO PLACE PT BACK INTO NG INTERMITTENT SUCTIONING. PT TOLERATING WELL. NO S/S OF RESPIRATORY DISTRESS OR DISCOMFORT NOTED AT THIS TIME. WILL CONTINUE TO MONITOR.
--- NOTE | 2018-09-22 23:00 | NUR ---
PT SLEEPING IN BED. NO S/S OF RESPIRATORY DISTRESS OR DISCOMFORT NOTED AT THIS TIME. WILL CONTINUE TO MONITOR.
[2018-09-23] VITALS: BP 100/55
--- NOTE | 2018-09-23 | NUR ---
VITAL SIGNS TAKEN AND TOLERATED WELL. NO S/S OF RESPIRATORY DISTRESS OR DISCOMFORT NOTED AT THIS TIME. WILL CONTINUE TO MONITOR.
--- NOTE | 2018-09-23 02:00 | NUR ---
PT CONTINUES TO SLEEP IN BED. NO S/S OF RESPIRATORY DISTRESS OR DISCOMFORT NOTED AT THIS TIME. WILL CONTINUE TO MONITOR.
--- NOTE | 2018-09-23 04:00 | NUR ---
PT CONTINUES TO SLEEP IN BED. NO S/S OF RESPIRATORY DISTRESS OR DISCOMFORT NOTED AT THIS TIME. WILL CONTINUE TO MONITOR.
--- NOTE | 2018-09-23 06:00 | NUR ---
PT CONTINUES TO SLEEP IN BED. NO S/S OF RESPIRATORY DISTRESS OR DISCOMFORT NOTED AT THIS TIME. WILL CONTINUE TO MONITOR.
[2018-09-23] MEDS: DEXT 5% / NACL 0.45% 1,000 ML IV SCH ×3 (06:01→20:25)
[2018-09-23 07:22] LABS: BASOPHILS % (AUTO) 0.5 % (0.0-2.0); EOSINOPHILS # (AUTO) 0.1 K/uL (0-0.4); EOSINOPHILS % (AUTO) 1.6 % (0.0-4.0); HEMATOCRIT 35.1 % (36-48); HEMOGLOBIN 11.9 g/dL (12.0-16.0); LYMPHOCYTES # (AUTO) 1.3 K/uL (2.5-16.5); LYMPHOCYTES % (AUTO) 34.2 % (20.5-51.1); MEAN CORPUSCULAR HEMOGLOBIN 30 pg (27-31); MEAN CORPUSCULAR HGB CONC 34 g/dL (33-37); MONOCYTES # (AUTO) 0.4 K/uL (0.8-1.0); MONOCYTES % (AUTO) 9.8 % (1.7-9.3); NEUTROPHILS # (AUTO) 2.1 K/uL (1.8-7.7); NEUTROPHILS % (AUTO) 53.9 % (42.2-75.2); PLATELET COUNT (AUTO) 230 K/uL (140-450); RED BLOOD CELL COUNT(AUTO) 4.04 MIL/uL (4.20-5.40); RED CELL DISTRIBUTION WIDTH 13.4 % (11.6-13.7); WHITE BLOOD COUNT (AUTO) 3.9 K/uL (4.8-10.8)
--- NOTE | 2018-09-23 07:30 | NUR ---
RECEIVED PT REPORT FROM LAYOUT INSPECTOR NURSE NIKOLAI AT BEDSIDE. PT AAOX4, GRENADIAN SPEAKING, DENIES PAIN. NO S/S OF ACUTE DISTRESS ON ROOM AIR. IV CATH TO LEFT AC #20G, PATENT AND INTACT, ASYMPTOMATIC. NG TUBE IN PLACE, ON LOW INTERMITTENT SUCTION. DISCUSSED PLAN OF CARE AND PT VERBALIZED UNDERSTANDING. BED IN LOWEST POSITION, BED BREAKS ON, BOTH SIDE RAILS UP AND FALL PRECAUTIONS IN PLACE. BEDSIDE TABLE, COMMODE AND CALL LIGHT ARE WITHIN REACH. WILL CONTINUE TO MONITOR.
--- NOTE | 2018-09-23 07:32 | NUR ---
ENDORSED PT CARE TO DAY SHIFT NURSE ARMEN FOR CONTINUITY OF CARE.
[2018-09-23 07:54] LABS: CARBON DIOXIDE 34.5 mmol/L (21-32); CHLORIDE 102 mmol/L (98-107); CREATININE 0.6 mg/dL (0.6-1.3); GLUCOSE 99 mg/dL (74-106); POTASSIUM 3.5 mmol/L (3.5-5.1); SODIUM SERUM 142 mmol/L (136-145); UREA NITROGEN, BLOOD 6 mg/dL (7-18)
[2018-09-23 07:56] LABS: MAGNESIUM 2.1 mg/dL (1.8-2.4); PHOSPHORUS 3.6 mg/dL (2.5-4.9)
--- NOTE | 2018-09-23 07:57 | NUR ---
RECEIVED PATIENT ON ROOM IR, PULSE OX SAT 93%. PATIENT DENIES SOB. PRN TX NOT GIVEN; PRN TX NOT INDICATED AT THIS TIME. NO RESPIRATORY DISTRESS NOTED AT THIS TIME. WILL CONTINUE TO MONITOR.
[2018-09-23 08:00] VITALS: BP 106/62
--- NOTE | 2018-09-23 08:30 | NUR ---
PATIENT HAS BEEN SCREENED AND CATEGORIZED MODERATE NUTRITION RISK. PATIENT WILL BE SEEN WITHIN 3-5 DAYS OF ADMISSION. 09/24/18[address] EST[address]
[2018-09-23] MEDS: CALCIUM ACETATE 667 MG TAB PO SCH (08:50)
[2018-09-23] MEDS: LACTOBACILLUS RHAMNOSUS GG 1 EACH CAP PO SCH (08:51)
[2018-09-23] MEDS: LEVOTHYROXINE 0.1 MG TAB PO SCH (08:52)
[2018-09-23] MEDS: PANTOPRAZOLE 40 MG TABEC PO SCH (08:52)
--- NOTE | 2018-09-23 08:52 | NUR ---
SCHEDULED MED GIVEN. PT SWALLOWED WELL, WITH MINIMAL AMOUNT OF WATER. STOPPED NG TUBE SUCTION.
[2018-09-23] MEDS: LOSARTAN 50 MG TAB PO SCH (08:54)
--- NOTE | 2018-09-23 10:30 | NUR ---
RESUMED NG TUBE ON LOW INTERMITTENT SUCTION.
--- NOTE | 2018-09-23 13:34 | NUR ---
RECEIVED PT REPORT FROM ACCOUNT LIAISON NURSE NIKOLAI AT BEDSIDE. PT AAOX4, GUATEMALAN SPEAKING, DENIES PAIN. NO S/S OF ACUTE DISTRESS ON ROOM AIR. IV CATH TO LEFT AC #20G, PATENT AND INTACT, ASYMPTOMATIC. NG TUBE IN PLACE, ON LOW INTERMITTENT SUCTION. DISCUSSED PLAN OF CARE AND PT VERBALIZED UNDERSTANDING. BED IN LOWEST POSITION, BED BREAKS ON, BOTH SIDE RAILS UP AND FALL PRECAUTIONS IN PLACE. BEDSIDE TABLE, COMMODE AND CALL LIGHT ARE WITHIN REACH. WILL CONTINUE TO MONITOR. Addendum: 09/23/18 at 1336 by Arsh Rincon RN PLEASE DISCARD, WRONG TIME ENTERED.
[2018-09-23 16:00] VITALS: BP 124/70
--- NOTE | 2018-09-23 19:15 | NUR ---
ENDORSED PT TO FENCE GATE ASSEMBLER RN. PT IN STABLE CONDITION
--- NOTE | 2018-09-23 19:16 | NUR ---
RECEIVED PT REPORT FROM AM SHIFT NURSE AT BEDSIDE. PT AAOX4, POLISH SPEAKING, DENIES PAIN. NO S/S OF ACUTE DISTRESS ON ROOM AIR. IV CATH TO LEFT AC #20G, PATENT AND INTACT, ASYMPTOMATIC. NG TUBE IN PLACE, BUT DISCONNECTED TO INTERMITTENT SUCTION. PER ORDER DISCHARGE ONCE PT TOLERATED FEEDING. JUST STARTED FEEDING DINNER TIME PER PREVIOUS NURSE. REVIEWED POC. . BED IN LOWEST POSITION, BOTH SIDE RAILS UP AND FALL PRECAUTIONS IN PLACE. CALL LIGHT ARE WITHIN REACH. WILL CONTINUE TO MONITOR.
--- NOTE | 2018-09-23 21:30 | NUR ---
PT'S DAUGHTER AT BEDSIDE TO INTERPRET FOR MOTHER. NURSE ASKED QUESTIONS AND INSTRUCTED MOTHER TO CALL AND USE THE CALL LIGHT. PATIENT ACKNOWLEDGED.
--- NOTE | 2018-09-23 21:36 | NUR ---
PT TOLERATED JELLO WITH GOOD SWALLOW, 1 BM NOTED SMEAR.
[2018-09-24] VITALS: BP 140/81
--- NOTE | 2018-09-24 02:21 | NUR ---
PATIENT ONLY ATE 1-[address] VAN. WILL FEED MORE AND STILL FOR OBSERVATION IF PATIENT CAN TOLERATE FEEDING. BEFORE D/C NGT. DR. HUFFMAN AWARE
[2018-09-24] MEDS: DEXT 5% / NACL 0.45% 1,000 ML IV SCH ×2 (03:12→06:42)
--- NOTE | 2018-09-24 05:32 | NUR ---
LOG CUT OFF SAWYER HERE AT BEDSIDE, PT TOLERATING PROCEDURE WELL.
--- NOTE | 2018-09-24 05:49 | NUR ---
PATIENT WENT TO THE BATHROOM W/ ASSISTANCE. PT VOIDED CLEAR YELLOW URINE. TOTAL 2X FOR THIS DENISE
--- NOTE | 2018-09-24 06:14 | NUR ---
PT AWAKE,ALERT, SLEEPING ON HIGH KATZ'S POSITION, IN STABLE CONDITION, FOR CONTINUITY OF CARE OF NEXT SHIFT NURSE. Addendum: 09/24/18 at 0620 by Joana Rosenbaum RN PT AMEND TO SLEEPING ON BED ON HIGH KATZ'S POSITION, IN STABLE CONDITION, FOR CONTINUITY OF CARE OF NEXT SHIFT NURSE.
[2018-09-24 06:28] LABS: BASOPHILS % (AUTO) 0.9 % (0.0-2.0); EOSINOPHILS # (AUTO) 0.1 K/uL (0-0.4); EOSINOPHILS % (AUTO) 2.4 % (0.0-4.0); HEMATOCRIT 32.3 % (36-48); HEMOGLOBIN 10.9 g/dL (12.0-16.0); LYMPHOCYTES % (AUTO) 35.7 % (20.5-51.1); MEAN CORPUSCULAR HEMOGLOBIN 29 pg (27-31); MEAN CORPUSCULAR HGB CONC 34 g/dL (33-37); MEAN CORPUSCULAR VOLUME 86.8 fL (80-94); MONOCYTES # (AUTO) 0.3 K/uL (0.8-1.0); NEUTROPHILS # (AUTO) 1.5 K/uL (1.8-7.7); PLATELET COUNT (AUTO) 203 K/uL (140-450); RED BLOOD CELL COUNT(AUTO) 3.72 MIL/uL (4.20-5.40); RED CELL DISTRIBUTION WIDTH 13.4 % (11.6-13.7); WHITE BLOOD COUNT (AUTO) 2.9 K/uL (4.8-10.8)
--- NOTE | 2018-09-24 06:38 | NUR ---
D/C NGT.PT TOLERATED WELL
[2018-09-24 06:45] LABS: MAGNESIUM 1.7 mg/dL (1.8-2.4); PHOSPHORUS 3.6 mg/dL (2.5-4.9)
[2018-09-24 06:52] LABS: ANION GAP 7.6 (8-16); CARBON DIOXIDE 33.6 mmol/L (21-32); CHLORIDE 105 mmol/L (98-107); CREATININE 0.5 mg/dL (0.6-1.3); GLUCOSE 96 mg/dL (74-106); POTASSIUM 3.2 mmol/L (3.5-5.1); SODIUM SERUM 143 mmol/L (136-145); UREA NITROGEN, BLOOD 5 mg/dL (7-18)
--- NOTE | 2018-09-24 07:15 | NUR ---
RECEIVED PT REPORT FROM BOSTON CUTTER NURSE RN AT BEDSIDE. PT IS AAOX4, FAROESE SPEAKING, DENIES PAIN. NO S/S OF ACUTE DISTRESS ON ROOM AIR. IV CATH TO LEFT AC #20G, PATENT AND INTACT, ASYMPTOMATIC. NG TUBE IN PLACE, ON LOW INTERMITTENT SUCTION. DISCUSSED PLAN OF CARE AND PT VERBALIZED UNDERSTANDING. BED IN LOWEST POSITION, BED BREAKS ON, BOTH SIDE RAILS UP AND FALL PRECAUTIONS IN PLACE. BEDSIDE TABLE, COMMODE AND CALL LIGHT ARE WITHIN REACH. WILL CONTINUE TO MONITOR. Addendum: 09/24/18 at 1533 by Arsh Rincon RN PLEASE DISCARD, WRONG TIME ENTERED
--- NOTE | 2018-09-24 07:20 | NUR ---
RECEIVED PT REPORT FROM MINE CAR REPAIRER NURSE RN AT BEDSIDE. PT IS AAOX4, TURKISH SPEAKING, DENIES PAIN. NO S/S OF ACUTE DISTRESS ON ROOM AIR. IV CATH TO LEFT AC #20G, PATENT AND INTACT, ASYMPTOMATIC. DISCUSSED PLAN OF CARE AND PT VERBALIZED UNDERSTANDING. BED IN LOWEST POSITION, BED BREAKS ON, BOTH SIDE RAILS UP AND FALL PRECAUTIONS IN PLACE. BEDSIDE TABLE, COMMODE AND CALL LIGHT ARE WITHIN REACH. WILL CONTINUE TO MONITOR.
[2018-09-24 08:00] VITALS: BP 128/69
[2018-09-24] MEDS ORDERED: MAGNESIUM OXIDE 400 MG TAB PO SCH (08:00)
[2018-09-24] MEDS: PANTOPRAZOLE 40 MG TABEC PO SCH (08:51)
[2018-09-24] MEDS: LACTOBACILLUS RHAMNOSUS GG 1 EACH CAP PO SCH (08:51)
[2018-09-24] MEDS: LOSARTAN 50 MG TAB PO SCH (08:51)
[2018-09-24] MEDS: LEVOTHYROXINE 0.1 MG TAB PO SCH (08:52)
[2018-09-24] MEDS ORDERED: MAG SULF 2000 MG/WATER PREMIX 50 ML IV SCH (09:00)
[2018-09-24] MEDS ORDERED: POTASSIUM CHLORIDE 10 MEQ TABER PO SCH (09:00)
--- NOTE | 2018-09-24 09:40 | NUR ---
PT STATED SHE AMBULATED TO RESTROOM AND HAD 1 BM. PT DENIES DIARRHEA.
[2018-09-24] MEDS ORDERED: DICL35CA PO (13:06)
[2018-09-24] MEDS ORDERED: DOCU-299 PO (13:06)
[2018-09-24] MEDS ORDERED: [UNRECOGNIZED DRUG - CODE] PO (13:57)
--- NOTE | 2018-09-24 14:35 | NUR ---
PT HAD LUNCH, DENIES PAIN OR NAUSEA. HOWEVER, PT C/O IV SITE DISCOMFORT. NO SWELLING OR REDNESS NOTED AT THE IV SITE. FLUSHED, IV CATH IS PATENT. DR LOGNO IS HERE. DR LONGO SAID OK TO DC IV CATH. PT WILL BE DISCHARGE TODAY AND HE WILL DC THE IVF. DC'D IV CATH ON THE LEFT AC, TIP INTACT, PRESSURE APPLIED.
[2018-09-24 16:00] VITALS: BP 127/65
--- NOTE | 2018-09-24 18:55 | NUR ---
PT DISCHARGE PER MD ORDER. PER DR LONGO, DR STARKEY IS OK WITH DC. DISCHARGE INSTRUCTION AND MEDICATIONS TEACHING PROVIDED WITH JIG BORING MACHINE SET UP OPERATOR PHONE. JIG BORING MACHINE SET UP OPERATOR #[id number]. PT VERBALIZED UNDERSTANDING. PT DENIES ANY PAIN OR DISCOMFORT. REMOVED PT'S WRIST BANDS. PT LEFT IN STABLE CONDITION WITH ALL HER BELONGINGS.
== END 2018-09-24 18:55 | disposition home or self-care (01) | DRG 282 ==
LOC: MED 18:10 → MTU 21:29
PROVIDERS: ADMIT General Practice; ATTEND General Practice
PROC: 0D9670Z Drainage of Stomach with Drainage Device, Via Natural or Artificial Opening (ICD-10-PCS; principal; 2018-09-21)
DX: K85.90 Acute pancreatitis without necrosis or infection, unspecified (principal); N17.0 Acute kidney failure with tubular necrosis; K56.609 Unspecified intestinal obstruction, unspecified as to partial versus complete obstruction; E83.39 Other disorders of phosphorus metabolism; J43.9 Emphysema, unspecified; K56.7 Ileus, unspecified; N39.0 Urinary tract infection, site not specified; J45.909 Unspecified asthma, uncomplicated; I10 Essential (primary) hypertension; E03.9 Hypothyroidism, unspecified; K21.9 Gastro-esophageal reflux disease without esophagitis; Z96.649 Presence of unspecified artificial hip joint; E87.6 Hypokalemia; Z79.899 Other long term (current) drug therapy; Z90.49 Acquired absence of other specified parts of digestive tract; Z90.710 Acquired absence of both cervix and uterus; Z83.3 Family history of diabetes mellitus; Z82.49 Family history of ischemic heart disease and other diseases of the circulatory system
CPT/HCPCS: 36415; 71045; 74018; 74250; 80048; 80053; 80305; 81003; 82150; 83605; 83690; 83735; 83880; 84100; 84436; 84443; 84484; 85025; 85610; 85730; 87081; 87086; 93005; 96372; 96374; 96375; 97116; 99285; J0500; J0696; J1644; J2270; J2405; J3475; J7060; Q0092

== ENCOUNTER 2018-09-26 15:33 | Inpatient (IN) | payer MEDICAID ==
[~2018-09-26] VITALS: Ht 157.5 cm; Wt 47.6 kg
[~2018-09-26 15:33] MED LIST changes: -CEPH500C16 PO; +DICL35CA PO; +DOCU-299 PO; +[UNRECOGNIZED DRUG - CODE] PO
[2018-09-26 15:52] VITALS: BP 136/94
--- NOTE | 2018-09-26 16:15 | NUR ---
c/o abdominal pain x1 day 04/10, abdomen soft/flat/non tender. LBM 09/25/18, diarrhea and nausea. denies fever/vomiting. bowel sounds present x4.SKIN IS PINK/WARM/DRY; AAOX4 WITH EVEN AND STEADY GAIT VSS; PATIENT POSITIONED FOR COMFORT; HOB ELEVATED; BEDRAILS UP X1; BED DOWN. ER MD MADE AWARE OF PT STATUS.
[2018-09-26] MEDS ORDERED: NACL 0.9% 1,000 ML IV SCH ×2 (16:29→18:30)
[2018-09-26] MEDS ORDERED: ONDANSETRON 4 MG/2 ML VIAL IVP ONE (16:30)
[2018-09-26] MEDS ORDERED: MORPHINE SULFATE 4 MG/ML SYR IVP ONE (16:30)
[2018-09-26 16:58] LABS: BASOPHILS % (AUTO) 0.2 % (0.0-2.0); EOSINOPHILS % (AUTO) 0.6 % (0.0-4.0); HEMATOCRIT 34.8 % (36-48); HEMOGLOBIN 11.6 g/dL (12.0-16.0); LYMPHOCYTES # (AUTO) 1.4 K/uL (2.5-16.5); LYMPHOCYTES % (AUTO) 21.2 % (20.5-51.1); MEAN CORPUSCULAR HEMOGLOBIN 29 pg (27-31); MEAN CORPUSCULAR HGB CONC 33 g/dL (33-37); MEAN CORPUSCULAR VOLUME 85.9 fL (80-94); MONOCYTES # (AUTO) 0.5 K/uL (0.8-1.0); MONOCYTES % (AUTO) 8.3 % (1.7-9.3); NEUTROPHILS # (AUTO) 4.5 K/uL (1.8-7.7); NEUTROPHILS % (AUTO) 69.7 % (42.2-75.2); PLATELET COUNT (AUTO) 253 K/uL (140-450); RED BLOOD CELL COUNT(AUTO) 4.05 MIL/uL (4.20-5.40); RED CELL DISTRIBUTION WIDTH 13.7 % (11.6-13.7); WHITE BLOOD COUNT (AUTO) 6.4 K/uL (4.8-10.8)
[2018-09-26 17:03] LABS: APPEARANCE,URINE CLEAR (CLEAR); BILIRUBIN,URINE NEGATIVE (NEGATIVE); BLOOD, URINE NEGATIVE (NEGATIVE); COLOR,URINE YELLOW (YELLOW); LEUKOCYTE ESTERASE ,URINE NEGATIVE (NEGATIVE); NITRITE, URINE NEGATIVE (NEGATIVE); PH,URINE 7.5 (5.0-9.0); UGLUCOSE NEGATIVE (NEGATIVE)
--- NOTE | 2018-09-26 17:15 | NUR ---
PATIENT TAKEN TO CT SCAN VIA GURNEY AT THIS TIME
[2018-09-26 17:19] LABS: ALBUMIN 2.8 g/dL (3.4-5.0); AMYLASE 79 U/L (25-115); ANION GAP 11.2 (8-16); ASPARTATE AMINOTRANSFERASE 26 U/L (15-37); CARBON DIOXIDE 30.6 mmol/L (21-32); CHLORIDE 101 mmol/L (98-107); CREATININE 0.6 mg/dL (0.6-1.3); GLUCOSE 107 mg/dL (74-106); LIPASE 263 U/L (73-393); POTASSIUM 3.8 mmol/L (3.5-5.1); SODIUM SERUM 139 mmol/L (136-145); TOTAL BILIRUBIN 0.3 mg/dL (0.0-1.0); UREA NITROGEN, BLOOD 11 mg/dL (7-18)
[2018-09-26] MEDS ORDERED: ONDANSETRON 4 MG/2 ML VIAL IM/IVP PRN (18:30)
[2018-09-26] MEDS ORDERED: DOCUSATE SODIUM 100 MG GELCAP PO PRN (18:30)
[2018-09-26] MEDS ORDERED: MORPHINE SULFATE 2 MG/ML SYR IVP PRN (18:30)
--- NOTE | 2018-09-26 19:00 | NUR ---
NG TUBE PLACED IN R NARE
[2018-09-26 19:02] LABS: MAGNESIUM 1.9 mg/dL (1.8-2.4); THYROID STIMULATING HORMONE 1.17 uIU/mL (0.34-3.74)
--- NOTE | 2018-09-26 19:05 | NUR ---
XRAY CALLED TO [facility] NG TUBE PLACEMENT
--- NOTE | 2018-09-26 19:10 | NUR ---
ASSUMED CARE OF PT FROM KARNE PANDYA.
--- NOTE | 2018-09-26 19:15 | NUR ---
XRAY AT BEDSIDE
--- NOTE | 2018-09-26 19:15 | NUR ---
GAVE REPORT TO KAREN NAVA
[2018-09-26 19:18] LABS: PROTHROMBIN TIME 9.9 secs (10.8-13.4)
[2018-09-26 19:22] VITALS: BP 145/85
--- NOTE | 2018-09-26 19:22 | NUR ---
RECEIVED BEDSIDE REPORT FROM RECTIFYING OPERATOR, PATIENT AMBULATORY, SKIN INTACT, NG TUBE IN PLACE. C/O FEELING NAUSEOUS AND DIZZY. PLACED ON FALL RISK PRECAUTIONS. PATIENT VOMITED X 3, GREEN/YELLOW VOMITUS NOTED. IV IN LEFT AC 20 G SL, PATENT DRESSING INTACT. PATIENT C/O SEVERE ABDOMINAL PAIN WILL MEDICATED ACCORDING TO MD ORDER. V/S TAKEN ALL STABLE, MRSA SCREEN COLLECTED AND SENT TO LAB, USED DATA QUALITY CONSULTANT RETA [id number] FOR ADMISSION QUESTIONS.
--- NOTE | 2018-09-26 19:25 | NUR ---
Patient will be admitted to care of DR AGUIRRE. Admited to MED/SURG. Will go to room 121-A. Belongings list completed. Report to KAREN BOURNE.
--- NOTE | 2018-09-26 19:45 | NUR ---
PLACED NG TUBE ON LOW INTERMITTENT SUCTION. PATIENT HAD 200 ML LIGHT GREEN/YELLOW OUTPUT.
[2018-09-26] MEDS ORDERED: LOSA50TA66 PO (20:08)
--- NOTE | 2018-09-26 20:10 | NUR ---
PATIENT VOMITING AND C/O SEVERE ABDOMINAL PAIN. ADMINISTERED ZOFRAN AND MORPHINE
[2018-09-26] MEDS ORDERED: SODIUM PHOSPHATE 118 ML ENEM RC ONE (20:25)
[2018-09-26] MEDS: DEXT 5% /NACL 0.9% 1,000 ML IV SCH (20:33)
--- NOTE | 2018-09-26 20:33 | NUR ---
STARTED IVF WITH D5/NS AT 100 ML/HR
[2018-09-26] MEDS: DOCUSATE SODIUM 100 MG GELCAP PO SCH (20:45)
--- NOTE | 2018-09-26 20:45 | NUR ---
FLEET ENEMA ADMINISTERED
--- NOTE | 2018-09-26 21:40 | NUR ---
SMALL BOWEL STUDIES STARTED. IV CONTRACT INJECTED INTO NG TUBE.
--- NOTE | 2018-09-26 21:50 | NUR ---
NOTIFIED DR HUFFMAN THAT PATIENT DID NOT HAVE BM AFTER ENEMA ADMINISTRATION.
--- NOTE | 2018-09-26 22:20 | NUR ---
PATIENT VOMITED X 2, PLACED HOB UP. WILL GIVE ZOFRAN WHEN DUE.
[2018-09-27] VITALS: BP 124/68
--- NOTE | 2018-09-27 | NUR ---
NOTIFIED DR HUFFMAN THAT SMALL BOWEL FOLLOW THROUGH WAS INCOMPLETE DUE TO PATIENT VOMITED ALL THE CONTRAST.
[2018-09-27] MEDS: LEVOTHYROXINE 0.1 MG TAB PO SCH (00:10)
--- NOTE | 2018-09-27 00:10 | NUR ---
DR HUFFMAN ORDERED TO KEEP PATIENT STRICT NPO
--- NOTE | 2018-09-27 01:52 | NUR ---
DR HUFFMAN WILL CANCEL SMALL BOWEL FOLLOW THROUGH
--- NOTE | 2018-09-27 03:47 | NUR ---
PATIENT ASLEEP IN BED, NO SIGNS OF VOMITING OR PAIN. BED ALARM ON WILL CONTINUE TO MONITOR.
[2018-09-27] MEDS: DEXT 5% /NACL 0.9% 1,000 ML IV SCH ×3 (04:54→21:47)
--- NOTE | 2018-09-27 06:19 | NUR ---
PATIENT URINATED X 1
[2018-09-27] MEDS ORDERED: MEDICATION REC. PHARMACY CONS. 1 EA MISC MC PRN (06:45)
--- NOTE | 2018-09-27 07:13 | NUR ---
ENDORSED PATIENT TO DAY SHIFT NURSE, PATIENT STABLE.
--- NOTE | 2018-09-27 07:14 | NUR ---
GOT BEDSIDE REPORT FROM KAREN BOURNE. PATIENT ON MED SURGE AND STANDARD PRECAUTIONS IN PLACE. PATIENT AAOX4 AND ON ROOM AIR, NO DISTRESS NOTED. WITH NG TUBE ON LOW INTERMITTENT SUCTION. FALL RISK PROTOCOL IN PLACE AND USES BED [place]. IV ON L AC 20 G INFUSING D5 NS AT 100, IV ASYMPTOMATIC PATENT AND INTACT. BED IN LOW POSITION, CALL LIGHT WITHIN REACH, SIDE RAILSX 2 UP.
[2018-09-27 07:20] LABS: CHOL/HDL RATIO 3.1 (1-4.5)
[2018-09-27 08:00] VITALS: BP 144/66
--- NOTE | 2018-09-27 08:30 | NUR ---
PATIENT HAS BEEN SCREENED AND CATEGORIZED MODERATE NUTRITION RISK. PATIENT WILL BE SEEN WITHIN 3-5 DAYS OF ADMISSION. 09/29/18[address]
[2018-09-27] MEDS: DOCUSATE SODIUM 100 MG GELCAP PO SCH ×2 (08:35→20:13)
[2018-09-27] MEDS: LOSARTAN 50 MG TAB PO SCH (08:35)
--- NOTE | 2018-09-27 09:12 | NUR ---
HELD PO MEDS SINCE PATIENT IS STRICT NPO
--- NOTE | 2018-09-27 11:30 | NUR ---
FAMILY AT BEDSIDE. PATIENT WATCHING TV, WILL CONTINUE TO MONITOR.
[2018-09-27] MEDS ORDERED: traMADol 50 MG TAB PO PRN (11:55)
[2018-09-27] MEDS ORDERED: KETOROLAC 15 MG/ML VIAL IVP PRN (11:55)
--- NOTE | 2018-09-27 14:05 | NUR ---
PATIENT LYING COMFORTABLY IN BED, NO DISTRESS NOTED, ON ROOM AIR.
[2018-09-27 16:00] VITALS: BP 131/67
--- NOTE | 2018-09-27 17:32 | NUR ---
Tracing Lathe Set Up Operator Note: I called and spoke with patient's daughter Rolan Weber (speaks Stateless) to confirm information I obtained from her during patient's previous hospital admission at [facility] in August 2018. Information remains the same, no changes. Patient lives at home with her daughter Rolan. Rolan takes patient to [facility] in [place], [place] for medical care and does not have any difficulty filling patient's prescriptions at [facility] pharmacy ([place], [place]).She stated patient is self responsible with medical decisions. Rolan has had good communication with MDs and nursing staff from hospital. She reported she would like patient to be seen by endoscopy support specialist as outpatient but she reported patient has Medi-[employer] restricted coverage, therefore, would have to pay privately for medical appt and cannot afford it. I offered to refer patient to [facility] , a 30 day program designed to assist patients with the transition process from hospital to home at no cost. SW from [facility] assist patients with [employer] Medi-[employer] application (full scope Medi-Everardo) at home. Rolan agreed with referral to [facility]. I faxed referral to [facility]. Per IBAN Covarrubias from [facility], she and one of their SWs will follow up with patient and patient�s daughter Rolan and assist her with [employer] Medi-[employer] application. Maintenance Of Way Supervisor and/or Jet Handler will follow up as needed.
--- NOTE | 2018-09-27 17:33 | NUR ---
DR. GEORGES SPEAKING TO PATIENT AT BEDSIDE. DR. GEORGES ORDERED TO CLAMP NG TUBE, ADVANCE TO CLEAR LIQUID DIET AND DEPENDING ON HOW WELL SHE TOLERATES, NG TUBE CAN BE DISCONTINUED.
--- NOTE | 2018-09-27 19:22 | NUR ---
GAVE REPORT TO KAREN BOURNE. PATIENT ENDORSED IN STABLE CONDITION
--- NOTE | 2018-09-27 19:30 | NUR ---
RECEIVED BEDSIDE REPORT FROM DAY SHIFT RN, PATIENT IN BED, NG TUBE CLAMPED, NOTED 500 ML OUTPUT IN COLLECTION CHAMBER. IV IN LEFT AC 20 G PATENT INFUSING D5/NS AT 100 ML. DAUGHTER AT BEDSIDE. PATIENT DENIES PAIN OR NAUSEA. EXPLAINED PLAN OF CARE, CALL LIGHT WITHIN REACH, WILL CONTINUE TO MONITOR.
--- NOTE | 2018-09-27 20:13 | NUR ---
DUE COLACE GIVEN, PATIENT ABLE TO SWALLOW MEDICATION AND DRINK WATER WITHOUT NAUSEA, WILL CONTINUE TO MONITOR PATIENT FOR N/V AFTER EATING.
--- NOTE | 2018-09-27 21:25 | NUR ---
DR HUFFMAN SAID OKAY TO DC NG TUBE.
--- NOTE | 2018-09-27 21:33 | NUR ---
PATIENT C/O FEELING PRESSURE ON CHEST. NOTIFIED DR HUFFMAN.
--- NOTE | 2018-09-27 21:50 | NUR ---
D/C NG TUBE, CATH INTACT, MOUTH AND NOSE CARE PROVIDED. TOTAL OUTPUT FROM NG TUBE 500 ML DARK GREEN/YELLOW GI SECRETIONS. ADMINISTERED ATIVAN FOR CHEST PRESSURE. DR HUFFMAN BELIEVED IS R/T ANXIETY. STARTED NEW BAG OF D5/NS INFUSING AT 100 ML/HR.
[2018-09-27] MEDS ORDERED: LORazepam 2 MG/ML VIAL IM/IVP SCH (22:00)
--- NOTE | 2018-09-27 22:20 | NUR ---
PATIENT RESTING IN BED, NO SIGNS OF DISTRESS, CALL LIGHT WITHIN REACH, FAMILY AT BEDSIDE.
[2018-09-27 23:56] VITALS: BP 124/73
--- NOTE | 2018-09-28 00:27 | NUR ---
V/S TAKEN ALL STABLE PATIENT DENIES PAIN WILL CONTINUE TO MONITOR
--- NOTE | 2018-09-28 00:52 | NUR ---
PATIENT HAD ONE LARGE BM
--- NOTE | 2018-09-28 02:19 | NUR ---
PATIENT SLEEPING IN BED, BED ALARM ON.
--- NOTE | 2018-09-28 03:32 | NUR ---
PATIENT ATTEMPTED TO GET OUT OF BED ASKING WHERE SHE WAS AT, REORIENTATED TO PLACE AND TIME. PATIENT URINATED X 1. ASSISTED BACK INTO BED, BED ALARM ON.
[2018-09-28] MEDS: LEVOTHYROXINE 0.1 MG TAB PO SCH (05:34)
[2018-09-28 06:34] LABS: BASOPHILS % (AUTO) 0.6 % (0.0-2.0); EOSINOPHILS # (AUTO) 0.1 K/uL (0-0.4); EOSINOPHILS % (AUTO) 1.8 % (0.0-4.0); HEMATOCRIT 30.3 % (36-48); HEMOGLOBIN 10.2 g/dL (12.0-16.0); LYMPHOCYTES % (AUTO) 21.1 % (20.5-51.1); MEAN CORPUSCULAR HEMOGLOBIN 29 pg (27-31); MEAN CORPUSCULAR HGB CONC 34 g/dL (33-37); MEAN CORPUSCULAR VOLUME 86.9 fL (80-94); MONOCYTES # (AUTO) 0.4 K/uL (0.8-1.0); MONOCYTES % (AUTO) 7.8 % (1.7-9.3); NEUTROPHILS # (AUTO) 3.3 K/uL (1.8-7.7); NEUTROPHILS % (AUTO) 68.7 % (42.2-75.2); PLATELET COUNT (AUTO) 204 K/uL (140-450); RED BLOOD CELL COUNT(AUTO) 3.49 MIL/uL (4.20-5.40); RED CELL DISTRIBUTION WIDTH 13.4 % (11.6-13.7); WHITE BLOOD COUNT (AUTO) 4.8 K/uL (4.8-10.8)
[2018-09-28 06:47] LABS: ANION GAP 10.2 (8-16); CARBON DIOXIDE 28.2 mmol/L (21-32); CHLORIDE 105 mmol/L (98-107); CREATININE 0.5 mg/dL (0.6-1.3); GLUCOSE 90 mg/dL (74-106); POTASSIUM 3.4 mmol/L (3.5-5.1); SODIUM SERUM 140 mmol/L (136-145); UREA NITROGEN, BLOOD 5 mg/dL (7-18)
--- NOTE | 2018-09-28 07:21 | NUR ---
ENDORSED PATIENT TO DAY SHIFT NURSE, PATIENT STABLE.
--- NOTE | 2018-09-28 07:21 | NUR ---
RECEIVED BEDSIDE REPORT FROM FENCE MACHINE OPERATOR RN, PATIENT IN BED, NG TUBE D/C BY FENCE MACHINE OPERATOR. IV IN LEFT AC 20 G PATENT INFUSING D5/NS AT 100 ML. PATIENT DENIES PAIN OR NAUSEA. EXPLAINED PLAN OF CARE, CALL LIGHT WITHIN REACH, WILL CONTINUE TO MONITOR.
[2018-09-28 08:00] VITALS: BP 116/74
[2018-09-28] MEDS: LOSARTAN 50 MG TAB PO SCH (09:17)
[2018-09-28] MEDS: DOCUSATE SODIUM 100 MG GELCAP PO SCH (09:17)
--- NOTE | 2018-09-28 09:20 | NUR ---
ADMINISTERED SCHEDULED MEDS TO PT. PT TOLERATED THEM WELL. ALL NEEDS MET AT THIS TIME. BED IN LOW POSITION, CALL LIGHT WITHIN REACH.
[2018-09-28] MEDS ORDERED: POTASSIUM CHLORIDE 10 MEQ TABER PO SCH (11:30)
--- NOTE | 2018-09-28 11:38 | NUR ---
PT SLEEPING IN BED. DAUGHTER AT BEDSIDE. ALL NEEDS CURRENTLY MET. NO COMPLAINTS OF PAIN OR SOB AT THIS TIME. WILL CONTINUE TO ROUND FREQUENTLY ON PT.
[2018-09-28] MEDS: DEXT 5% /NACL 0.9% 1,000 ML IV SCH (12:58)
--- NOTE | 2018-09-28 13:01 | NUR ---
PT IN BED EATING A JELLO. PT DAUGHTER AT HER BEDSIDE. ALL NEEDS CURRENTLY MET. BED IN LOW POSITION, CALL LIGHT WITHIN REACH.
--- NOTE | 2018-09-28 15:25 | NUR ---
PT ASLEEP IN BED. FAMILY AT BEDSIDE. NO SIGNS OF PAIN OR DISTRESS. WILL CONTINUE TO MONITOR PT. BED IN LOW POSITION, CALL LIGHT WITHIN REACH.
[2018-09-28 16:00] VITALS: BP 123/75
--- NOTE | 2018-09-28 19:30 | NUR ---
RECEIVED BEDSIDE REPORT FROM DAY SHIFT NURSE FOR CONTINUITY OF CARE. PATIENT AWAKE, ALERT, AND COOPERATIVE. RESPIRATION EVEN UNLABORED ON ROOM AIR. DENIES PAIN. SKIN IS WARM AND DRY. IV PATENT AND INTACT. FAMILY AT BEDSIDE AND DISCUSSED PLAN OF CARE. ALL SAFETY MEASURES ARE IN PLACE. BEDSIDE COMMODE WITHIN REACH. BED IS AT LOW POSITION. CALL LIGHT WITHIN REACH AND VERBALIZE ITS USE. WILL CONTINUE TO MONITOR
--- NOTE | 2018-09-28 19:43 | NUR ---
ENDORSED PT TO GRIEVANCE COORDINATOR FOR CONTINUITY OF CARE. PT IN STABLE CONDITION.
--- NOTE | 2018-09-28 20:00 | NUR ---
INITIAL ASSESSMENT DONE. VITALS WERE TAKEN. PATIENT CONDITION STABLE. WILL CONTINUE TO MONITOR
--- NOTE | 2018-09-28 22:00 | NUR ---
CHECKED PATIENT. PATIENT SLEEPING RESPIRATION EVEN UNLABORED ON ROOM AIR. NO DISTRESS NOTED. WILL CONTINUE TO MONITOR.
[2018-09-29] VITALS: BP 119/74
--- NOTE | 2018-09-29 | NUR ---
VITALS WERE TAKEN. PATIENT CONDITION STABLE. NO DISTRESS NOTED. WILL CONTINUE TO MONITOR.
--- NOTE | 2018-09-29 02:00 | NUR ---
CHECKED PATIENT. PATIENT SLEEPING COMFORTABLY. RESPIRATION EVEN UNLABORED ON ROOM AIR. NO DISTRESS NOTED. WILL CONTINUE TO MONITOR.
--- NOTE | 2018-09-29 04:00 | NUR ---
CHECKED PATIENT. PATIENT SLEEPING RESPIRATION EVEN UNLABORED ON ROOM AIR. NO DISTRESS NOTED. WILL CONTINUE TO MONITOR.
[2018-09-29] MEDS: LEVOTHYROXINE 0.1 MG TAB PO SCH (05:43)
--- NOTE | 2018-09-29 07:08 | NUR ---
ENDORSED PATIENT TO DAY SHIFT NURSE FOR CONTINUITY OF CARE. PATIENT IS STABLE.
--- NOTE | 2018-09-29 07:15 | NUR ---
RECEIVED BEDSIDE REPORT FROM COMPENSATION AND HRIS ANALYST RN, PATIENT IN BED RESTING. IV IN RIGHT FA 22G PATENT INFUSING D5/NS AT 100 ML. PATIENT DENIES PAIN OR NAUSEA. EXPLAINED PLAN OF CARE, CALL LIGHT WITHIN REACH, WILL CONTINUE TO MONITOR.
[2018-09-29 07:17] LABS: BASOPHILS % (AUTO) 0.8 % (0.0-2.0); EOSINOPHILS # (AUTO) 0.1 K/uL (0-0.4); EOSINOPHILS % (AUTO) 2.7 % (0.0-4.0); HEMATOCRIT 29.8 % (36-48); LYMPHOCYTES # (AUTO) 0.9 K/uL (2.5-16.5); LYMPHOCYTES % (AUTO) 29.2 % (20.5-51.1); MEAN CORPUSCULAR HEMOGLOBIN 29 pg (27-31); MEAN CORPUSCULAR HGB CONC 34 g/dL (33-37); MONOCYTES # (AUTO) 0.3 K/uL (0.8-1.0); MONOCYTES % (AUTO) 9.6 % (1.7-9.3); NEUTROPHILS # (AUTO) 1.7 K/uL (1.8-7.7); NEUTROPHILS % (AUTO) 57.7 % (42.2-75.2); PLATELET COUNT (AUTO) 209 K/uL (140-450); RED BLOOD CELL COUNT(AUTO) 3.43 MIL/uL (4.20-5.40); RED CELL DISTRIBUTION WIDTH 13.4 % (11.6-13.7)
[2018-09-29 07:32] LABS: ANION GAP 8.5 (8-16); CARBON DIOXIDE 29.2 mmol/L (21-32); CHLORIDE 108 mmol/L (98-107); CREATININE 0.5 mg/dL (0.6-1.3); GLUCOSE 88 mg/dL (74-106); POTASSIUM 3.7 mmol/L (3.5-5.1); SODIUM SERUM 142 mmol/L (136-145); UREA NITROGEN, BLOOD 4 mg/dL (7-18)
[2018-09-29 08:00] VITALS: BP 126/76
[2018-09-29] MEDS: LOSARTAN 50 MG TAB PO SCH (08:37)
--- NOTE | 2018-09-29 08:54 | NUR ---
ADMINISTERED SCHEDULED MEDS TO PT. PT TOLERATED THEM WELL. ALL NEEDS MET AT THIS TIME. BED IN LOW POSITION, CALL LIGHT WITHIN REACH.
[2018-09-29] MEDS: DEXT 5% /NACL 0.9% 1,000 ML IV SCH (08:58)
[2018-09-29] MEDS ORDERED: DOCUSATE SODIUM 100 MG GELCAP PO SCH (09:00)
[2018-09-29] MEDS ORDERED: DOCU-299 PO (10:41)
--- NOTE | 2018-09-29 10:57 | NUR ---
PT SITTING UP IN BED. DAUGHTER AT BEDSIDE. ALL NEEDS CURRENTLY MET. NO COMPLAINTS OF PAIN OR SOB AT THIS TIME. WILL CONTINUE TO ROUND FREQUENTLY ON PT.
[2018-09-29] MEDS ORDERED: BEN10 PO (11:02)
[2018-09-29] MEDS ORDERED: ONDA4TAB PO (11:02)
--- NOTE | 2018-09-29 12:01 | NUR ---
PT IN BED EATING HER LUNCH. PT DAUGHTER AT HER BEDSIDE. ALL NEEDS CURRENTLY MET. BED IN LOW POSITION, CALL LIGHT WITHIN REACH.
--- NOTE | 2018-09-29 14:02 | NUR ---
PT DISCHARGED HOME FOR SELF CARE. DISCHARGE TEACHING AND IMPORTANCE OF FOLLOW UP WITH PCP INCLUDING CONTINUATION OF MEDS AT HOME WAS DISCUSSED WITH PT AND FAMILY. PT AND FAMILY VERBALIZED UNDERSTANDING OF ALL TEACHING TOPICS. DISCHARGE PAPERWORK SIGNED BY PT DAUGHTER. IV REMOVED WITH TIP INTACT. ALL PERSONAL BELONGINGS WERE TAKEN WITH PT. WRIST BANDS REMOVED AND PLACED IN SHRED BIN. PT LEFT IN STABLE CONDITION.
== END 2018-09-29 14:02 | disposition home or self-care (01) | DRG 247 ==
LOC: MED 15:33 → MTU 18:31
PROVIDERS: ADMIT General Practice; ATTEND General Practice
PROC: 0D9670Z Drainage of Stomach with Drainage Device, Via Natural or Artificial Opening (ICD-10-PCS; principal; 2018-09-29)
DX: K56.609 Unspecified intestinal obstruction, unspecified as to partial versus complete obstruction (principal); E43 Unspecified severe protein-calorie malnutrition; E83.39 Other disorders of phosphorus metabolism; D64.9 Anemia, unspecified; K21.9 Gastro-esophageal reflux disease without esophagitis; Z90.710 Acquired absence of both cervix and uterus; Z83.3 Family history of diabetes mellitus; Z82.49 Family history of ischemic heart disease and other diseases of the circulatory system; E03.9 Hypothyroidism, unspecified; Z68.1 Body mass index [BMI] 19.9 or less, adult
CPT/HCPCS: 36415; 71045; 74018; 74250; 80048; 80053; 81003; 82150; 83036; 83690; 83735; 83880; 84100; 84443; 84484; 85025; 85610; 85730; 87081; 96361; 96374; 96375; 97530; 99285; J2060; J2270; J2405; J7042; Q0092; Q9967

== ENCOUNTER 2019-10-22 18:53 | Emergency (ER) | payer MEDICAID ==
[~2019-10-22] VITALS: Ht 154.9 cm; Wt 49.9 kg
[~2019-10-22 18:53] MED LIST changes: +BEN10 PO; +ONDA4TAB PO
[2019-10-22 18:58] VITALS: BP 128/76
--- NOTE | 2019-10-22 19:06 | NUR ---
EKG being performed in traige room
--- NOTE | 2019-10-22 19:16 | NUR ---
pt ambulated to bed and placed on osteopathic medicine teacher. ekg performed. bed locked and in lowest position. side rails x1.
[2019-10-22] MEDS ORDERED: NACL 0.9% 500 ML IV ONE (19:30)
--- NOTE | 2019-10-22 19:30 | NUR ---
74 YO F C/C OF CHEST DISCOMFORT THAT RADIATES TO BACK UPON INSPIRATION X2 DAYS. PT DENIES BEING IN PAIN AT THIS TIME AND DENIES TAKING ANYTHING FOR THE PAIN. LEFT LOWER LOBE CRACKLES ON INSPIRTION, CLEAR ON RIGHT SIDE THROUGHOUT. RESPIRATIONS EVEN AND UNLABORED. EQUAL CHEST RISE AND FALL. S1 AND S2 HEARD. PT DENIES TRAVEL, FEVER, N/V/D, OR COUGH. VSS. PT RESTING COMFORTABLY IN BED, PLACED ON HSE SPECIALIST AND PULSE OX. SIDE RAILS X1. ALLERGIES TO ACETAMINOPHEN MED HX: HYPOTHYROID, HYPERLIPIDEMIA RX: LOSARTAN, LEVOTHYROXINE
[2019-10-22 20:09] LABS: BASOPHILS % (AUTO) 0.4 % (0.0-2.0); EOSINOPHILS # (AUTO) 0.1 K/uL (0-0.4); EOSINOPHILS % (AUTO) 0.9 % (0.0-4.0); HEMATOCRIT 33.3 % (36-48); HEMOGLOBIN 10.9 g/dL (12.0-16.0); LYMPHOCYTES # (AUTO) 1.7 K/uL (2.5-16.5); LYMPHOCYTES % (AUTO) 26.9 % (20.5-51.1); MEAN CORPUSCULAR HEMOGLOBIN 26 pg (27-31); MEAN CORPUSCULAR HGB CONC 33 g/dL (33-37); MONOCYTES # (AUTO) 0.7 K/uL (0.8-1.0); MONOCYTES % (AUTO) 10.6 % (1.7-9.3); NEUTROPHILS # (AUTO) 3.8 K/uL (1.8-7.7); NEUTROPHILS % (AUTO) 61.2 % (42.2-75.2); PLATELET COUNT (AUTO) 214 K/uL (140-450); RED BLOOD CELL COUNT(AUTO) 4.11 MIL/uL (4.20-5.40); RED CELL DISTRIBUTION WIDTH 25.8 % (11.6-13.7); WHITE BLOOD COUNT (AUTO) 6.2 K/uL (4.8-10.8)
[2019-10-22 20:21] LABS: PROTHROMBIN TIME 10.3 secs (10.8-13.4)
[2019-10-22 20:25] LABS: ALBUMIN 3.3 g/dL (3.4-5.0); ANION GAP 7.2 (8-16); ASPARTATE AMINOTRANSFERASE 20 U/L (15-37); CARBON DIOXIDE 33.5 mmol/L (21-32); CHLORIDE 103 mmol/L (98-107); CREATININE 1.1 mg/dL (0.6-1.3); GLUCOSE 102 mg/dL (74-106); POTASSIUM 3.7 mmol/L (3.5-5.1); SODIUM SERUM 140 mmol/L (136-145); TOTAL BILIRUBIN 0.2 mg/dL (0.0-1.0); UREA NITROGEN, BLOOD 20 mg/dL (7-18)
[2019-10-22] MEDS ORDERED: KETOROLAC 30 MG/ML VIAL IM ONE (21:00)
[2019-10-22 21:31] VITALS: BP 119/58
--- NOTE | 2019-10-22 21:45 | NUR ---
Patient discharged with v/s stable. Written and verbal after care instructions given and explained. Patient alert, oriented and verbalized understanding of instructions. Ambulatory with steady gait. All questions addressed prior to discharge. ID band removed. Patient advised to follow up with PMD. Rx of XANEX given. Patient educated on indication of medication including possible reaction and side effects. Opportunity to ask questions provided and answered.
== END 2019-10-22 21:45 | disposition home or self-care (01) ==
LOC: MED 18:53
DX: F41.9 Anxiety disorder, unspecified (principal); I10 Essential (primary) hypertension; E07.9 Disorder of thyroid, unspecified; Z79.899 Other long term (current) drug therapy; Z88.6 Allergy status to analgesic agent
CPT/HCPCS: 36415; 36600; 71045; 80053; 82803; 83880; 84484; 85025; 85610; 85730; 93005; 96372; 99284; J1885; J7030; Q0092

== ENCOUNTER 2019-10-24 19:35 | Inpatient (IN) | payer MEDICAID ==
[~2019-10-24] VITALS: Ht 157.5 cm; Wt 49.4 kg
[2019-10-24 19:44] VITALS: BP 144/83
--- NOTE | 2019-10-24 19:58 | NUR ---
PT AMBULATED TO ER BED 06
--- NOTE | 2019-10-24 20:05 | NUR ---
PT 74 Y/O FEMALE BIB SELF FOR C/O ABD PAIN STARING 30 MIN AGO. HAS 10/10 ABD PAIN IN EPIGASTRIC REGION, LLQ, AND RLQ. PT ABD IS SOFT, ROUND AND TENDER TO TOUCH. BS ACTIVE X 4. PT HAS C/O N/V. LAST EPISODE OF VOMITING X 15 MIN AGO. PT STATES PAIN IS NON-RADATING. RESPIRATIONS ARE EVEN AND UNLABORED. SKIN IS WARM AND DRY TO TOUCH. NEGATIVE COVID SCREEN. PT WEARING MASK. PT ON MONTIOR. MEDHX: HYPOTHYROID, HTN, GASTRITIS ALLERGIES: NKA
[2019-10-24] MEDS ORDERED: ONDANSETRON 4 MG/2 ML VIAL IVP ONE (20:25)
[2019-10-24] MEDS ORDERED: NACL 0.9% 1,000 ML IV ONE (20:25)
[2019-10-24] MEDS ORDERED: MORPHINE SULFATE 4 MG/ML SYR IVP ONE (20:25)
--- NOTE | 2019-10-24 20:35 | NUR ---
IV PLACED IN L AC 20G. IV SITE IS PATENT, NO PAIN OR SWELLING AT SITE.
--- NOTE | 2019-10-24 20:37 | NUR ---
LABS COLLECTED AND GIVEN TO [employer].
--- NOTE | 2019-10-24 20:45 | NUR ---
MORPHINE 4MG AND ZOFRAN 4MG GIVEN VIA IVP. PT ON MONITOR. VSS.
--- NOTE | 2019-10-24 20:46 | NUR ---
MORPHINE GIVEN FOR 10/10 ABD PAIN VIA IVP. IV SITE PATENT. PT ON MONITOR. VSS.
--- NOTE | 2019-10-24 20:47 | NUR ---
PT TAKEN TO CT VIA W/C. PT FLUIDS WILL BE ADMINISTERED UPON RETURN. NASD MADE AWARE.
[2019-10-24 20:48] LABS: BASOPHILS % (AUTO) 0.2 % (0.0-2.0); EOSINOPHILS % (AUTO) 0.1 % (0.0-4.0); HEMOGLOBIN 11.7 g/dL (12.0-16.0); LYMPHOCYTES # (AUTO) 0.9 K/uL (2.5-16.5); LYMPHOCYTES % (AUTO) 6.8 % (20.5-51.1); MEAN CORPUSCULAR HEMOGLOBIN 26 pg (27-31); MEAN CORPUSCULAR HGB CONC 32 g/dL (33-37); MEAN CORPUSCULAR VOLUME 80.4 fL (80-94); MONOCYTES # (AUTO) 0.8 K/uL (0.8-1.0); MONOCYTES % (AUTO) 5.8 % (1.7-9.3); NEUTROPHILS # (AUTO) 11.7 K/uL (1.8-7.7); NEUTROPHILS % (AUTO) 87.1 % (42.2-75.2); PLATELET COUNT (AUTO) 202 K/uL (140-450); RED BLOOD CELL COUNT(AUTO) 4.47 MIL/uL (4.20-5.40); RED CELL DISTRIBUTION WIDTH 26.3 % (11.6-13.7); WHITE BLOOD COUNT (AUTO) 13.4 K/uL (4.8-10.8)
--- NOTE | 2019-10-24 20:54 | NUR ---
PT BACK FROM CT VIA W/C.
[2019-10-24 20:59] LABS: ANION GAP 11.6 (8-16); CARBON DIOXIDE 30.9 mmol/L (21-32); CHLORIDE 100 mmol/L (98-107); CREATININE 0.9 mg/dL (0.6-1.3); GLUCOSE 100 mg/dL (74-106); POTASSIUM 3.5 mmol/L (3.5-5.1); SODIUM SERUM 139 mmol/L (136-145); UREA NITROGEN, BLOOD 15 mg/dL (7-18)
[2019-10-24 21:05] LABS: ALBUMIN 3.4 g/dL (3.4-5.0); ASPARTATE AMINOTRANSFERASE 22 U/L (15-37); LIPASE 154 U/L (73-393)
[2019-10-24 21:14] LABS: BILIRUBIN,URINE 1+ (NEGATIVE); BLOOD, URINE NEGATIVE (NEGATIVE); COLOR,URINE YELLOW (YELLOW); LEUKOCYTE ESTERASE ,URINE 1+ (NEGATIVE); NITRITE, URINE POSITIVE (NEGATIVE); UGLUCOSE NEGATIVE (NEGATIVE)
[2019-10-24 21:16] LABS: APPEARANCE,URINE HAZY (CLEAR)
--- NOTE | 2019-10-24 21:16 | NUR ---
PT RESPONDS TO VERBAL STIMULI. RESPIRATIONS ARE EVEN AND UNLABORED. PT ON MONTIOR.
[2019-10-24] MEDS ORDERED: KETOROLAC 30 MG/ML VIAL IVP ONE (21:25)
--- NOTE | 2019-10-24 21:30 | NUR ---
PT GIVEN TORADOL 30MG GIVEN IVP FOR ABD PAIN 12/09. IV SITE PATENT. VSS.
[2019-10-24 21:49] LABS: RBC,URINE NONE SEEN /HPF (0-5); WBC,URINE 20-60 /HPF (0-5)
[2019-10-24] MEDS ORDERED: DOCUSATE SODIUM 100 MG GELCAP PO PRN (21:50)
[2019-10-24] MEDS ORDERED: MORPHINE SULFATE 2 MG/ML SYR IVP PRN (21:50)
[2019-10-24] MEDS ORDERED: ONDANSETRON 4 MG/2 ML VIAL IM/IVP PRN (21:50)
--- NOTE | 2019-10-24 21:50 | NUR ---
NG TUBE PLACED. PT TOLERATED WELL. PENDING XRAY CONFIRMATION.
--- NOTE | 2019-10-24 21:58 | NUR ---
XRAY AT BEDSIDE.
--- NOTE | 2019-10-24 22:00 | NUR ---
LAB AT BEDSIDE.
[2019-10-24 22:13] LABS: PROTHROMBIN TIME 12.4 secs (10.8-13.4)
[2019-10-24] MEDS ORDERED: cefTRIAXone 1,000 MG VIAL ONE (22:17)
--- NOTE | 2019-10-24 22:21 | NUR ---
ROCEHPIN 1000MG GIVEN AT 100ML/HR. IV SITE IS PATENT. NO REDNESS, SWELLING, OR PAIN AT IV SITE AT THIS TIME.
[2019-10-24] MEDS ORDERED: AMLO5TAB PO (22:34)
[2019-10-24] MEDS ORDERED: LOSA50TA66 PO (22:34)
[2019-10-24] MEDS ORDERED: OMEP20TC10 PO (22:34)
--- NOTE | 2019-10-24 22:40 | NUR ---
MED REC COMPLETED. PT GAVE EMERGENCY CONTACT FOR DAUGHTER- BONI [phone]
--- NOTE | 2019-10-24 22:45 | NUR ---
Patient will be admitted to care of DR. AGUIRRE. Admited to [facility]. Will go to room 120A. Belongings list completed. Report to ESTELLE JONES.
--- NOTE | 2019-10-24 22:50 | NUR ---
RECEIVED PATIENT FROM ER IN STABLE CONDITION FOR CONTINUITY OF CARE. RESPIRATIONS EVEN, UNLABORED. SKIN WARM, DRY AND INTACT. SKIN ASSESSMENT COMPLETED. IV SITE TO LEFT AC 20G PATENT/INTACT. PATIENT CONTINUES TO HAVE EPISODES OF EMESIS. NGTUBE NOTED TO RIGHT NARES. PATIENT CONTINENT OF B/B. NO C/O PAIN. PATIENT ORIENTED TO ROOM/STAFF AND CALL LIGHT. MRSA SCREEN COMPLETED. CALL LIGHT WITHIN REACH. WILL CONTINUE TO MONITOR.
[2019-10-24] MEDS: DEXT 5% /NACL 0.9% 1,000 ML IV SCH (23:04)
[2019-10-24 23:23] LABS: MAGNESIUM 1.7 mg/dL (1.8-2.4); PHOSPHORUS 3.9 mg/dL (2.5-4.9); THYROID STIMULATING HORMONE 1.04 uIU/mL (0.34-3.74)
[2019-10-25] VITALS: BP 121/93
--- NOTE | 2019-10-25 | NUR ---
AWAKE, PATIENT CONTINUES TO HAVE EPISODES OF NAUSEA AND VOMITING. NO OTHER S/SX ACUTE DISTRESS. CALL LIGHT WITHIN REACH. WILL CONTINUE TO MONITOR.
--- NOTE | 2019-10-25 00:21 | NUR ---
MEDICATED WITH ZOFRAN FOR NAUSEA AND VOMITING. CALL LIGHT WITHIN REACH. WILL CONTINUE TO MONITOR.
[2019-10-25] MEDS ORDERED: MAG SULF 2000 MG/WATER PREMIX 50 ML IV ONE (00:25)
--- NOTE | 2019-10-25 00:42 | NUR ---
PATIENT CONTINUES TO BE NAUSEOUS BUT RESTING QUIETLY AT THIS TIME. CALL LIGHT WITHIN REACH. WILL CONTINUE TO MONITOR.
--- NOTE | 2019-10-25 02:05 | NUR ---
PATIENT AWAKE. CONTINUES WITH EPISODES OF NAUSEA. HOB UP 30 DEGREES. SUGGESTED SPLINTING FOR PAIN MANAGEMENT. CALL LIGHT WITHIN REACH. WILL CONTINUE TO MONITOR.
--- NOTE | 2019-10-25 04:00 | NUR ---
PATIENT ASLEEP AND IN STABLE CONDITION. NO C/O PAIN. NO S/SX ACUTE DISTRESS. CALL LIGHT WITHIN REACH. WILL CONTINUE TO MONITOR.
--- NOTE | 2019-10-25 06:21 | NUR ---
AWAKE AND IN STABLE CONDITION. EPISODES OF EMESIS HAVE DECREASED. CALL LIGHT WITHIN REACH. WILL CONTINUE TO MONITOR.
--- NOTE | 2019-10-25 07:14 | NUR ---
ENDORSED PATIENT IN STABLE CONDITION TO AM SHIFT NURSE FOR CONTINUITY OF CARE.
--- NOTE | 2019-10-25 07:14 | NUR ---
RECEIVED REPORT FROM FIRE MEDIC NURSE MITCHELL-RN. PT RESTING IN BED, AOX4, LITHUANIAN SPEAKING, ON ROOM AIR, WITH NG TUBE INTERMITTENT SUCTIONING, IV SITE LEFT AC #20 RUNNING D5NS @ 50ML/HR. SKIN INTACT, AMBULATORY WITH CANE. DISCUSSED PLAN OF CARE AND PT VERBALIZED UNDERSTANDING. NO S/S OF RESPIRATORY DISTRESS OR DISCOMFORT NOTED AT THIS TIME. WILL CONTINUE TO MONITOR.
[2019-10-25 07:44] LABS: EOSINOPHILS % (AUTO) 0.3 % (0.0-4.0); HEMATOCRIT 33.9 % (36-48); HEMOGLOBIN 11.1 g/dL (12.0-16.0); LYMPHOCYTES % (AUTO) 9.3 % (20.5-51.1); MEAN CORPUSCULAR HEMOGLOBIN 27 pg (27-31); MEAN CORPUSCULAR HGB CONC 33 g/dL (33-37); MEAN CORPUSCULAR VOLUME 81.8 fL (80-94); MONOCYTES # (AUTO) 0.6 K/uL (0.8-1.0); MONOCYTES % (AUTO) 5.6 % (1.7-9.3); NEUTROPHILS % (AUTO) 84.8 % (42.2-75.2); PLATELET COUNT (AUTO) 178 K/uL (140-450); RED BLOOD CELL COUNT(AUTO) 4.14 MIL/uL (4.20-5.40); RED CELL DISTRIBUTION WIDTH 26.2 % (11.6-13.7); WHITE BLOOD COUNT (AUTO) 10.6 K/uL (4.8-10.8)
[2019-10-25 07:50] LABS: CARBON DIOXIDE 30.1 mmol/L (21-32); CHLORIDE 103 mmol/L (98-107); CREATININE 0.6 mg/dL (0.6-1.3); GLUCOSE 113 mg/dL (74-106); POTASSIUM 4.1 mmol/L (3.5-5.1); SODIUM SERUM 139 mmol/L (136-145); UREA NITROGEN, BLOOD 11 mg/dL (7-18)
[2019-10-25 07:55] LABS: CHOL/HDL RATIO 2.2 (1-4.5)
[2019-10-25 08:00] VITALS: BP 139/70
[2019-10-25] MEDS: LOSARTAN 50 MG TAB PO SCH (09:00)
--- NOTE | 2019-10-25 09:00 | NUR ---
SPOKE WITH DAUGHTER BONI REGARDING PT UPDATE. ASSISTED PT TO USE ROOM PHONE AND SPEAK TO DAUGHTER.
[2019-10-25] MEDS: amLODIPine 5 MG TAB PO SCH (10:12)
[2019-10-25] MEDS: LEVOTHYROXINE 0.1 MG TAB PO SCH (10:12)
[2019-10-25] MEDS: PANTOPRAZOLE 40 MG INJ VIAL IVP SCH (10:13)
--- NOTE | 2019-10-25 10:14 | NUR ---
SCHEDULED MEDICATIONS GIVEN AND TOLERATED WELL. NO S/S OF RESPIRATORY DISTRESS OR DISCOMFORT NOTED AT THIS TIME. WILL CONTINUE TO MONITOR.
--- NOTE | 2019-10-25 11:00 | NUR ---
ASSISTED PT TO USE RESTROOM. PT AMBULATED WITH CANE. NO S/S OF RESPIRATORY DISTRESS OR DISCOMFORT NOTED AT THIS TIME. WILL CONTINUE TO MONITOR.
--- NOTE | 2019-10-25 12:00 | NUR ---
PT RESTING IN BED. NO S/S OF RESPIRATORY DISTRESS OR DISCOMFORT NOTED AT THIS TIME. WILL CONTINUE TO MONITOR.
--- NOTE | 2019-10-25 14:00 | NUR ---
PT CONTINUES TO REST IN BED. NO S/S OF RESPIRATORY DISTRESS OR DISCOMFORT NOTED AT THIS TIME. WILL CONTINUE TO MONITOR.
--- NOTE | 2019-10-25 15:00 | NUR ---
ASSISTED PT TO USE RESTROOM. PT SELF AMBULATED WITH CANE. NO S/S OF RESPIRATORY DISTRESS OR DISCOMFORT NOTED AT THIS TIME. WILL CONTINUE TO MONITOR.
[2019-10-25 16:00] VITALS: BP 130/67
--- NOTE | 2019-10-25 16:00 | NUR ---
PT CONTINUES TO REST IN BED. NO S/S OF RESPIRATORY DISTRESS OR DISCOMFORT NOTED AT THIS TIME. WILL CONTINUE TO MONITOR.
[2019-10-25] MEDS: DEXT 5% /NACL 0.9% 1,000 ML IV SCH (17:50)
--- NOTE | 2019-10-25 19:05 | NUR ---
RECD. RESTING IN BED, AWAKE, A/OXR4. RESPIRATION EVEN AND UNLABORED. NGT CONNECTED TO LOW INTERMITTENT SUCTION DRAINING GREENISH BROWN FLUIDS. IV OF D5 NS AT 50 ML/HR INFUSING, LEFT AC G20. ABLE TO AMBULATE WITH ASSISTANCE, USING A CANE. PLAN OF CARE FOR THE SHIFT DISCUSSED. VERBALIZED UNDERSTANDING. DENIES PAIN 0/10.
--- NOTE | 2019-10-25 21:00 | NUR ---
ASSISTED TO BR TO VOID, GAIT STEADY. BACK TO BED AFTER VOIDING.
[2019-10-26] VITALS: BP 119/75
--- NOTE | 2019-10-26 | NUR ---
ASSISTED OUT OF BED TO GO TO BR, BACK TO BED AFTER VOIDING. NO COMPLAINT OF PAIN 0/10.
--- NOTE | 2019-10-26 02:30 | NUR ---
ASSISTED OUT OF BED TO GO TO BR, VOIDED AND HAVE MEDIUM BM.
--- NOTE | 2019-10-26 04:30 | NUR ---
SLEEPING COMFORTABLY IN BED.
--- NOTE | 2019-10-26 06:30 | NUR ---
IV INFILTRATED, WILL INSERT NEW IV LINE.
[2019-10-26 08:00] VITALS: BP 116/62
--- NOTE | 2019-10-26 08:09 | NUR ---
PATIENT HAS BEEN SCREENED AND CATEGORIZED HIGH NUTRITION RISK. PATIENT WILL BE SEEN WITHIN 1-2 DAYS OF ADMISSION. 10/25/19 10/26/[address]
[2019-10-26 08:47] LABS: ANION GAP 10.3 (8-16); BASOPHILS % (AUTO) 0.5 % (0.0-2.0); CARBON DIOXIDE 28.9 mmol/L (21-32); CHLORIDE 103 mmol/L (98-107); CREATININE 0.5 mg/dL (0.6-1.3); EOSINOPHILS % (AUTO) 0.6 % (0.0-4.0); GLUCOSE 89 mg/dL (74-106); HEMATOCRIT 30.7 % (36-48); HEMOGLOBIN 10.2 g/dL (12.0-16.0); LYMPHOCYTES # (AUTO) 0.8 K/uL (2.5-16.5); MEAN CORPUSCULAR HEMOGLOBIN 27 pg (27-31); MEAN CORPUSCULAR HGB CONC 33 g/dL (33-37); MEAN CORPUSCULAR VOLUME 80.8 fL (80-94); MONOCYTES # (AUTO) 0.5 K/uL (0.8-1.0); MONOCYTES % (AUTO) 7.2 % (1.7-9.3); NEUTROPHILS # (AUTO) 5.2 K/uL (1.8-7.7); PLATELET COUNT (AUTO) 180 K/uL (140-450); POTASSIUM 3.2 mmol/L (3.5-5.1); RED CELL DISTRIBUTION WIDTH 25.6 % (11.6-13.7); SODIUM SERUM 139 mmol/L (136-145); UREA NITROGEN, BLOOD 6 mg/dL (7-18); WHITE BLOOD COUNT (AUTO) 6.6 K/uL (4.8-10.8)
[2019-10-26] MEDS: LOSARTAN 50 MG TAB PO SCH (09:00)
[2019-10-26] MEDS: amLODIPine 5 MG TAB PO SCH (09:00)
[2019-10-26 09:10] LABS: MAGNESIUM 1.8 mg/dL (1.8-2.4); PHOSPHORUS 2.7 mg/dL (2.5-4.9)
[2019-10-26] MEDS: PANTOPRAZOLE 40 MG INJ VIAL IVP SCH (09:34)
[2019-10-26] MEDS: LEVOTHYROXINE 0.1 MG TAB PO SCH (09:34)
[2019-10-26 10:30] LABS: LYMPHOCYTES % (AUTO) 12.8 % (20.5-51.1); NEUTROPHILS % (AUTO) 78.9 % (42.2-75.2)
--- NOTE | 2019-10-26 12:41 | NUR ---
10/26/19 RD INITIAL ASSESSMENT COMPLETED PLEASE REFER TO NUTRITION ASSESSMENT UNDER CARE ACTIVITY FOR ESTIMATED NUTRITIONAL NEEDS. 1. CONTINUE NPO PER MD ORDERS 2. WHEN MEDICALLY STABLE RECOMMEND ADVANCE TO CLEAR LIQUID TOLERATED 3. RD TO FOLLOW-UP 2-3 DAYS, HIGH RISK BEN PETERSEN, VERENA
[2019-10-26] MEDS: DEXT 5% /NACL 0.9% 1,000 ML IV SCH ×2 (13:50→23:50)
[2019-10-26 16:00] VITALS: BP 112/64
[2019-10-26] MEDS ORDERED: POTASSIUM CHLORIDE 40 MEQ, LIDOCAINE MPF 1% 25 MG in NACL 0.9% 250 ML IV SCH (17:00)
--- NOTE | 2019-10-26 19:10 | NUR ---
RECD. RESTING IN BED, AWAKE, A/OX4. RESPIRATION EVEN AND UNLABORED. K-RIDER INFUSING AT 68 ML/HR, LEFT AC G20. ON CLEAR LIQUID DIET. PLAN OF CARE FOR THE SHIFT DISCUSSED. VERBALIZED UNDERSTANDING. DENIES PAIN 0/10.
--- NOTE | 2019-10-26 19:30 | NUR ---
Patient's Plan of Care was discussed and reviewed with GRILL ATTENDANT: CARLOS MATOS
--- NOTE | 2019-10-26 21:38 | NUR ---
ROCEPHIN IVPB INFUSED BY KAREN TERRY.
[2019-10-27] VITALS: BP 117/63
--- NOTE | 2019-10-27 | NUR ---
SLEEPING COMFORTABLY IN BED.
--- NOTE | 2019-10-27 02:00 | NUR ---
AMBULATED TO BE BR TO VOID. WENT BACK TO SLEEP AFTER VOIDING.
--- NOTE | 2019-10-27 04:00 | NUR ---
ASLEEP IN BED, COMFORTABLE.
[2019-10-27 06:50] LABS: BASOPHILS % (AUTO) 0.5 % (0.0-2.0); EOSINOPHILS # (AUTO) 0.1 K/uL (0-0.4); EOSINOPHILS % (AUTO) 1.4 % (0.0-4.0); HEMATOCRIT 30.4 % (36-48); HEMOGLOBIN 9.9 g/dL (12.0-16.0); LYMPHOCYTES # (AUTO) 1.1 K/uL (2.5-16.5); MEAN CORPUSCULAR HEMOGLOBIN 27 pg (27-31); MEAN CORPUSCULAR HGB CONC 33 g/dL (33-37); MEAN CORPUSCULAR VOLUME 81.8 fL (80-94); MONOCYTES # (AUTO) 0.5 K/uL (0.8-1.0); MONOCYTES % (AUTO) 7.5 % (1.7-9.3); NEUTROPHILS # (AUTO) 4.7 K/uL (1.8-7.7); NEUTROPHILS % (AUTO) 73.6 % (42.2-75.2); PLATELET COUNT (AUTO) 176 K/uL (140-450); RED BLOOD CELL COUNT(AUTO) 3.72 MIL/uL (4.20-5.40); RED CELL DISTRIBUTION WIDTH 25.3 % (11.6-13.7); WHITE BLOOD COUNT (AUTO) 6.4 K/uL (4.8-10.8)
--- NOTE | 2019-10-27 07:20 | NUR ---
RECEIVED REPORT FROM LOCOMOTIVE SWITCH OPERATOR NURSE AILYN. PT RESTING IN BED, AOX4- SLOVAK SPEAKING, ON ROOM AIR, AMBULATORY WITH CANE, WITH IV SITE LEFT AC #20G RUNNING D5/NS @50ML/HR. DISCUSSED PLAN OF CARE AND PT VERBALIZED UNDERSTANDING. NO S/S OR RESPIRATORY DISTRESS OR DISCOMFORT NOTED AT THIS TIME. WILL CONTINUE TO MONITOR.
--- NOTE | 2019-10-27 07:20 | NUR ---
ENDORSED TO AM SHIFT NURSE FOR CONTINUITY OF CARE.
[2019-10-27 08:00] VITALS: BP 125/70
[2019-10-27] MEDS: LOSARTAN 50 MG TAB PO SCH (09:00)
[2019-10-27] MEDS ORDERED: DOCU-299 PO (09:24)
[2019-10-27] MEDS ORDERED: IBUP-1842 PO (09:24)
[2019-10-27] MEDS ORDERED: ONDA-24 PO (09:24)
[2019-10-27] MEDS: PANTOPRAZOLE 40 MG INJ VIAL IVP SCH (09:39)
[2019-10-27] MEDS: amLODIPine 5 MG TAB PO SCH (09:40)
[2019-10-27] MEDS: LEVOTHYROXINE 0.1 MG TAB PO SCH (09:40)
--- NOTE | 2019-10-27 09:42 | NUR ---
SCHEDULED MEDICATIONS GIVEN AND TOLERATED WELL. NO S/S OR RESPIRATORY DISTRESS OR DISCOMFORT NOTED AT THIS TIME. WILL CONTINUE TO MONITOR.
[2019-10-27] MEDS: DEXT 5% /NACL 0.9% 1,000 ML IV SCH (09:50)
[2019-10-27 10:17] VITALS: BP 125/70
--- NOTE | 2019-10-27 10:29 | NUR ---
Risk Control Field Representative Note: SW left VM to patient's daughter Simran Weber [phone] to complete assessment. SW will follow up.
[2019-10-27 10:37] LABS: ANION GAP 9.4 (8-16); CARBON DIOXIDE 28.8 mmol/L (21-32); CHLORIDE 106 mmol/L (98-107); CREATININE 0.7 mg/dL (0.6-1.3); GLUCOSE 86 mg/dL (74-106); POTASSIUM 3.2 mmol/L (3.5-5.1); SODIUM SERUM 141 mmol/L (136-145); UREA NITROGEN, BLOOD 6 mg/dL (7-18)
[2019-10-27 10:45] LABS: MAGNESIUM 1.7 mg/dL (1.8-2.4); PHOSPHORUS 2.7 mg/dL (2.5-4.9)
--- NOTE | 2019-10-27 11:00 | NUR ---
PT RESTING IN BED. NO S/S OF RESPIRATORY DISTRESS OR DISCOMFORT NOTED AT THIS TIME. WILL CONTINUE TO MONITOR.
[2019-10-27] MEDS ORDERED: PNEUMOCOCCAL VACCINE 23 MCG/0.5 ML VIAL IMVAC SCH (11:25)
--- NOTE | 2019-10-27 12:00 | NUR ---
DISCHARGE PAPERWORK SIGNED. PT STABLE AT THIS TIME. EATING HER LUNCH BEFORE BEING PICKED UP BY DAUGHTER BONI.
--- NOTE | 2019-10-27 12:30 | NUR ---
IV REMOVED, CATHETER INTACT. ID BANDS REMOVED. PT S TABLE AT THIS TIME.
--- NOTE | 2019-10-27 12:35 | NUR ---
PT WAS TAKEN TO FRONT LOBBY VIA WHEELCHAIR. PT STABLE AT THIS TIME.
--- NOTE | 2019-10-27 15:31 | NUR ---
DC PLANNIN YRS OLD FEMALE PATIENT WAS ADMITTED FROM HOME WITH A DX OF SMALL BOWEL OBSTRUCTION. PT HAS A HX OF HTN, GERD AND GASTRITIS. CT ABDOMEN/PELVIS PROBABLE PARTIAL DISTAL SMALL BOWEL OBSTRUCTION. STARTED IVF NGT PLACED. SEEN BY SURGEON DR STARKEY ORDERED SBFT, PT HAD BMX3 , AND MD DIDN'T RECOMMENDED NO SURGICAL INTERVENTION AT THIS TIME. STABLE TO BE DISCHARGE HOME.
== END 2019-10-27 12:35 | disposition home or self-care (01) | DRG 720 ==
LOC: MED 19:35 → MTU 21:50
PROVIDERS: ADMIT General Practice; ATTEND General Practice
PROC: 0D9670Z Drainage of Stomach with Drainage Device, Via Natural or Artificial Opening (ICD-10-PCS; principal; 2019-10-24)
DX: A41.9 Sepsis, unspecified organism (principal); K56.600 Partial intestinal obstruction, unspecified as to cause; E83.42 Hypomagnesemia; M41.9 Scoliosis, unspecified; N39.0 Urinary tract infection, site not specified; K21.9 Gastro-esophageal reflux disease without esophagitis; E87.6 Hypokalemia; E03.9 Hypothyroidism, unspecified; I10 Essential (primary) hypertension; M85.80 Other specified disorders of bone density and structure, unspecified site; Z96.642 Presence of left artificial hip joint; Z88.8 Allergy status to other drugs, medicaments and biological substances; Z79.899 Other long term (current) drug therapy; Z90.49 Acquired absence of other specified parts of digestive tract; Z90.710 Acquired absence of both cervix and uterus; Z83.3 Family history of diabetes mellitus; Z82.49 Family history of ischemic heart disease and other diseases of the circulatory system
CPT/HCPCS: 36415; 71045; 74018; 74250; 80048; 80053; 81001; 83036; 83605; 83690; 83735; 83880; 84100; 84443; 85025; 85610; 85730; 86886; 86900; 86901; 87040; 87081; 87086; 87186; 90732; 96365; 96375; 99285; C9113; J0696; J1644; J1885; J2001; J2270; J2405; J3475; J3480; J7030; J7042; J7060; Q0092

== ENCOUNTER 2019-10-31 12:07 | Inpatient (IN) | payer MEDICAID ==
[~2019-10-31] VITALS: Ht 156.2 cm; Wt 56.2 kg
[~2019-10-31 12:07] MED LIST changes: +AMLO5TAB PO; -BEN10 PO; -DICL35CA PO; +IBUP-1842 PO; -MIRABULK PO; +OMEP20TC10 PO; -OMEP40EC14 PO; +ONDA-24 PO; -ONDA4TAB PO; -[UNRECOGNIZED DRUG - CODE] PO
[2019-10-31 12:11] VITALS: BP 112/71
[2019-10-31] MEDS ORDERED: NACL 0.9% 1,000 ML IV SCH (12:36)
[2019-10-31] MEDS ORDERED: ONDANSETRON 4 MG/2 ML VIAL IVP ONE (12:40)
[2019-10-31] MEDS ORDERED: KETOROLAC 30 MG/ML VIAL IVP ONE (12:40)
[2019-10-31 13:07] LABS: BASOPHILS % (AUTO) 0.5 % (0.0-2.0); EOSINOPHILS % (AUTO) 0.3 % (0.0-4.0); HEMATOCRIT 36.6 % (36-48); HEMOGLOBIN 12.2 g/dL (12.0-16.0); LYMPHOCYTES # (AUTO) 0.7 K/uL (2.5-16.5); LYMPHOCYTES % (AUTO) 9.5 % (20.5-51.1); MEAN CORPUSCULAR HEMOGLOBIN 27 pg (27-31); MEAN CORPUSCULAR HGB CONC 33 g/dL (33-37); MEAN CORPUSCULAR VOLUME 80.8 fL (80-94); MONOCYTES # (AUTO) 0.4 K/uL (0.8-1.0); MONOCYTES % (AUTO) 5.5 % (1.7-9.3); NEUTROPHILS # (AUTO) 6.4 K/uL (1.8-7.7); NEUTROPHILS % (AUTO) 84.2 % (42.2-75.2); PLATELET COUNT (AUTO) 313 K/uL (140-450); RED BLOOD CELL COUNT(AUTO) 4.53 MIL/uL (4.20-5.40); RED CELL DISTRIBUTION WIDTH 25.8 % (11.6-13.7); WHITE BLOOD COUNT (AUTO) 7.5 K/uL (4.8-10.8)
[2019-10-31 13:27] LABS: ALBUMIN 3.3 g/dL (3.4-5.0); AMYLASE 62 U/L (25-115); ANION GAP 12.4 (8-16); ASPARTATE AMINOTRANSFERASE 20 U/L (15-37); CHLORIDE 97 mmol/L (98-107); CREATININE 0.9 mg/dL (0.6-1.3); GLUCOSE 97 mg/dL (74-106); LIPASE 162 U/L (73-393); POTASSIUM 3.4 mmol/L (3.5-5.1); SODIUM SERUM 137 mmol/L (136-145); TOTAL BILIRUBIN 0.9 mg/dL (0.0-1.0); UREA NITROGEN, BLOOD 7 mg/dL (7-18)
[2019-10-31] MEDS ORDERED: PIPERACILLIN/TAZOBACTAM 3.375 GM in DEXTROSE 5% 50 ML IV ONE (14:20)
[2019-10-31] MEDS ORDERED: MORPHINE SULFATE 4 MG/ML SYR IVP ONE (14:20)
[2019-10-31] MEDS ORDERED: PIPERACILLIN/TAZOBACTAM 3.375 GM VIAL IV ONE (14:25)
[2019-10-31 14:42] LABS: APPEARANCE,URINE HAZY (CLEAR); COLOR,URINE YELLOW (YELLOW); UGLUCOSE NEGATIVE (NEGATIVE)
[2019-10-31 14:43] LABS: BILIRUBIN,URINE 1+ (NEGATIVE); BLOOD, URINE NEGATIVE (NEGATIVE); LEUKOCYTE ESTERASE ,URINE TRACE (NEGATIVE); NITRITE, URINE NEGATIVE (NEGATIVE)
[2019-10-31 14:44] LABS: RBC,URINE 0-5 /HPF (0-5)
[2019-10-31] MEDS ORDERED: DOCUSATE SODIUM 100 MG GELCAP PO PRN ×2 (14:45→19:00)
[2019-10-31] MEDS ORDERED: BUPIVACAINE-MPF/EPI 0.25% 30 ML VIAL INJ ONE (15:00)
[2019-10-31 15:20] LABS: PROTHROMBIN TIME 10.5 secs (10.8-13.4)
[2019-10-31 15:25] LABS: MAGNESIUM 1.5 mg/dL (1.8-2.4); PHOSPHORUS 4.5 mg/dL (2.5-4.9); THYROID STIMULATING HORMONE 6.7 uIU/mL (0.34-3.74)
[2019-10-31] MEDS ORDERED: GLYCOPYRROLATE 0.2 MG/ML VIAL ONE (15:33)
[2019-10-31] MEDS ORDERED: fentaNYL 0.05 MG/ML VIAL ONE (15:33)
[2019-10-31] MEDS ORDERED: PROPOFOL 200 MG/20 ML VIAL IV ONE (15:33)
[2019-10-31] MEDS ORDERED: KETOROLAC 30 MG/ML VIAL ONE (15:33)
[2019-10-31] MEDS ORDERED: NEOSTIGMINE 1:1000 10 MG/10 ML VIAL ONE (15:33)
[2019-10-31] MEDS ORDERED: SUCCINYLCHOLINE CHLORIDE 200 MG/10 ML VIAL IVP ONE (15:33)
[2019-10-31] MEDS ORDERED: DESFLURANE 240 ML BTL INH ONE (15:33)
[2019-10-31] MEDS ORDERED: ONDANSETRON 4 MG/2 ML VIAL ONE (15:33)
[2019-10-31] MEDS ORDERED: ROCURONIUM 50 MG/5 ML VIAL IV ONE (15:33)
[2019-10-31] MEDS ORDERED: HYDROmorphone 1 MG/ML AMP IVP PRN (19:00)
[2019-10-31] MEDS ORDERED: ONDANSETRON 4 MG/2 ML VIAL IVP PRN (19:00)
[2019-10-31] MEDS ORDERED: MAG SULF 2000 MG/WATER PREMIX 50 ML IV SCH (19:05)
[2019-10-31 19:34] LABS: HEMATOCRIT 37.7 % (36-48); HEMOGLOBIN 12.2 g/dL (12.0-16.0); MEAN CORPUSCULAR HEMOGLOBIN 26 pg (27-31); MEAN CORPUSCULAR HGB CONC 33 g/dL (33-37); MEAN CORPUSCULAR VOLUME 81.3 fL (80-94); PLATELET COUNT (AUTO) 267 K/uL (140-450); RED BLOOD CELL COUNT(AUTO) 4.64 MIL/uL (4.20-5.40); RED CELL DISTRIBUTION WIDTH 25.4 % (11.6-13.7); WHITE BLOOD COUNT (AUTO) 8.9 K/uL (4.8-10.8)
[2019-10-31 19:55] LABS: ANION GAP 12.3 (8-16); CHLORIDE 100 mmol/L (98-107); CREATININE 0.7 mg/dL (0.6-1.3); GLUCOSE 142 mg/dL (74-106); POTASSIUM 3.3 mmol/L (3.5-5.1); SODIUM SERUM 137 mmol/L (136-145); UREA NITROGEN, BLOOD 7 mg/dL (7-18)
[2019-10-31 19:57] LABS: LYMPHOCYTES % (MANUAL) 6 % (20-46); MONOCYTES % (MANUAL) 1 % (5-12)
[2019-10-31 20:20] VITALS: BP 138/67
[2019-10-31] MEDS: MORPHINE SULFATE 2 MG/ML SYR IVP PRN ×2 (20:24→23:32)
[2019-10-31] MEDS: DEXT 5% / NACL 0.45% 1,000 ML IV SCH (20:31)
[2019-11-01] VITALS: BP 124/61
[2019-11-01] MEDS ORDERED: POTASSIUM CHL 20 MEQ/D5-1/2NS 1,000 ML IV SCH ×2 (00:10→00:50)
[2019-11-01] MEDS: MORPHINE SULFATE 2 MG/ML SYR IVP PRN ×2 (03:30→14:24)
[2019-11-01 04:00] VITALS: BP 129/66
[2019-11-01] MEDS: DEXT 5% / NACL 0.45% 1,000 ML IV SCH (04:40)
[2019-11-01] MEDS: PIPERACILLIN/TAZOBACTAM 3.375 GM in DEXTROSE 5% 50 ML IV SCH ×5 (06:32→18:33)
[2019-11-01] MEDS: LEVOTHYROXINE 0.1 MG TAB PO SCH (06:34)
[2019-11-01 07:53] LABS: ANION GAP 9.4 (8-16); CARBON DIOXIDE 28.8 mmol/L (21-32); CHLORIDE 100 mmol/L (98-107); CREATININE 0.7 mg/dL (0.6-1.3); GLUCOSE 181 mg/dL (74-106); POTASSIUM 3.2 mmol/L (3.5-5.1); SODIUM SERUM 135 mmol/L (136-145); UREA NITROGEN, BLOOD 9 mg/dL (7-18)
[2019-11-01 07:54] LABS: MAGNESIUM 1.7 mg/dL (1.8-2.4); PHOSPHORUS 3.8 mg/dL (2.5-4.9)
[2019-11-01 07:56] LABS: HEMATOCRIT 34.7 % (36-48); HEMOGLOBIN 11.3 g/dL (12.0-16.0); MEAN CORPUSCULAR HEMOGLOBIN 27 pg (27-31); MEAN CORPUSCULAR HGB CONC 33 g/dL (33-37); PLATELET COUNT (AUTO) 270 K/uL (140-450); RED BLOOD CELL COUNT(AUTO) 4.23 MIL/uL (4.20-5.40); WHITE BLOOD COUNT (AUTO) 15.4 K/uL (4.8-10.8)
[2019-11-01 08:00] VITALS: BP 106/61
[2019-11-01 08:35] LABS: LYMPHOCYTES % (MANUAL) 2 % (20-46); MONOCYTES % (MANUAL) 6 % (5-12)
[2019-11-01] MEDS: amLODIPine 5 MG TAB PO SCH (10:02)
[2019-11-01] MEDS: PANTOPRAZOLE 40 MG INJ VIAL IVP SCH (10:02)
[2019-11-01] MEDS: LOSARTAN 50 MG TAB PO SCH (10:03)
[2019-11-01] MEDS ORDERED: POTASSIUM CHLORIDE 20 MEQ, LIDOCAINE 1% 25 MG in NACL 0.9% 250 ML IV SCH (10:30)
[2019-11-01 10:41] LABS: CHOL/HDL RATIO 2.2 (1-4.5)
[2019-11-01 12:00] VITALS: BP 101/65
[2019-11-01] MEDS: POTASSIUM CHL 20 MEQ/D5-1/2NS 1,000 ML IV SCH ×2 (12:35→20:33)
[2019-11-01] MEDS ORDERED: MAGNESIUM OXIDE 400 MG TAB PO SCH (13:30)
[2019-11-01 16:00] VITALS: BP 114/67
[2019-11-01 16:28] LABS: ANION GAP 9.8 (8-16); CARBON DIOXIDE 28.5 mmol/L (21-32); CHLORIDE 101 mmol/L (98-107); CREATININE 0.8 mg/dL (0.6-1.3); GLUCOSE 116 mg/dL (74-106); POTASSIUM 4.3 mmol/L (3.5-5.1); SODIUM SERUM 135 mmol/L (136-145); UREA NITROGEN, BLOOD 12 mg/dL (7-18)
[2019-11-01] MEDS ORDERED: ACETAMINOPHEN 650 MG/20.3 ML UDC PO PRN (16:50)
[2019-11-01] MEDS ORDERED: KETOROLAC 15 MG/ML VIAL IVP ONE (17:25)
[2019-11-01 20:00] VITALS: BP 97/55
[2019-11-02] VITALS: BP 111/64
[2019-11-02] MEDS: PIPERACILLIN/TAZOBACTAM 3.375 GM in DEXTROSE 5% 50 ML IV SCH ×4 (00:09→19:50)
[2019-11-02 04:00] VITALS: BP 105/61
[2019-11-02] MEDS: POTASSIUM CHL 20 MEQ/D5-1/2NS 1,000 ML IV SCH ×3 (05:40→21:00)
[2019-11-02] MEDS: LEVOTHYROXINE 0.1 MG TAB PO SCH (05:44)
[2019-11-02 07:03] LABS: HEMATOCRIT 30.9 % (36-48); HEMOGLOBIN 10.1 g/dL (12.0-16.0); LYMPHOCYTES # (AUTO) 0.5 K/uL (2.5-16.5); LYMPHOCYTES % (AUTO) 3.6 % (20.5-51.1); MEAN CORPUSCULAR HEMOGLOBIN 27 pg (27-31); MEAN CORPUSCULAR HGB CONC 33 g/dL (33-37); MEAN CORPUSCULAR VOLUME 81.4 fL (80-94); MONOCYTES # (AUTO) 0.5 K/uL (0.8-1.0); MONOCYTES % (AUTO) 3.6 % (1.7-9.3); NEUTROPHILS # (AUTO) 13.7 K/uL (1.8-7.7); NEUTROPHILS % (AUTO) 92.8 % (42.2-75.2); PLATELET COUNT (AUTO) 261 K/uL (140-450); RED CELL DISTRIBUTION WIDTH 26.2 % (11.6-13.7); WHITE BLOOD COUNT (AUTO) 14.8 K/uL (4.8-10.8)
[2019-11-02 07:07] LABS: ANION GAP 7.2 (8-16); CARBON DIOXIDE 27.9 mmol/L (21-32); CHLORIDE 100 mmol/L (98-107); CREATININE 0.7 mg/dL (0.6-1.3); GLUCOSE 132 mg/dL (74-106); POTASSIUM 4.1 mmol/L (3.5-5.1); SODIUM SERUM 131 mmol/L (136-145); UREA NITROGEN, BLOOD 16 mg/dL (7-18)
[2019-11-02 07:12] LABS: MAGNESIUM 1.5 mg/dL (1.8-2.4); PHOSPHORUS 2.2 mg/dL (2.5-4.9)
[2019-11-02 08:00] VITALS: BP 115/71
[2019-11-02] MEDS: LOSARTAN 50 MG TAB PO SCH (09:15)
[2019-11-02] MEDS: PANTOPRAZOLE 40 MG INJ VIAL IVP SCH (09:16)
[2019-11-02] MEDS: amLODIPine 5 MG TAB PO SCH (09:16)
[2019-11-02] MEDS ORDERED: DEXT 5% / NACL 0.45% 1,000 ML IV SCH (10:50)
[2019-11-02] MEDS ORDERED: DEXT 5% /NACL 0.9% 1,000 ML IV SCH (10:55)
[2019-11-02 12:00] VITALS: BP 135/76
[2019-11-02] MEDS ORDERED: MAG SULF 2000 MG/WATER PREMIX 50 ML IV SCH ×2 (12:00→16:00)
[2019-11-02 16:00] VITALS: BP 135/76
[2019-11-02] MEDS: SODIUM PHOS / POTASSIUM PHOS 1 PKT PDR PO SCH (21:00)
[2019-11-03] VITALS: BP 144/78
[2019-11-03] MEDS: PIPERACILLIN/TAZOBACTAM 3.375 GM in DEXTROSE 5% 50 ML IV SCH ×3 (01:00→12:33)
[2019-11-03] MEDS: ONDANSETRON 4 MG/2 ML VIAL IM/IVP PRN ×2 (04:02→08:16)
[2019-11-03] MEDS: POTASSIUM CHL 20 MEQ/D5-1/2NS 1,000 ML IV SCH ×3 (04:35→22:30)
[2019-11-03 05:40] LABS: BASOPHILS % (AUTO) 0.1 % (0.0-2.0); HEMATOCRIT 30.5 % (36-48); HEMOGLOBIN 10.1 g/dL (12.0-16.0); LYMPHOCYTES # (AUTO) 0.5 K/uL (2.5-16.5); MEAN CORPUSCULAR HEMOGLOBIN 27 pg (27-31); MEAN CORPUSCULAR HGB CONC 33 g/dL (33-37); MEAN CORPUSCULAR VOLUME 81.1 fL (80-94); MONOCYTES # (AUTO) 0.5 K/uL (0.8-1.0); MONOCYTES % (AUTO) 2.9 % (1.7-9.3); NEUTROPHILS # (AUTO) 16.8 K/uL (1.8-7.7); PLATELET COUNT (AUTO) 297 K/uL (140-450); RED BLOOD CELL COUNT(AUTO) 3.76 MIL/uL (4.20-5.40); RED CELL DISTRIBUTION WIDTH 25.5 % (11.6-13.7); WHITE BLOOD COUNT (AUTO) 17.8 K/uL (4.8-10.8)
[2019-11-03] MEDS: LEVOTHYROXINE 0.1 MG TAB PO SCH (05:47)
[2019-11-03 07:19] LABS: ANION GAP 9.4 (8-16); CHLORIDE 98 mmol/L (98-107); CREATININE 0.8 mg/dL (0.6-1.3); GLUCOSE 135 mg/dL (74-106); POTASSIUM 3.4 mmol/L (3.5-5.1); SODIUM SERUM 133 mmol/L (136-145); UREA NITROGEN, BLOOD 11 mg/dL (7-18)
[2019-11-03 07:20] LABS: MAGNESIUM 1.9 mg/dL (1.8-2.4); PHOSPHORUS 2.2 mg/dL (2.5-4.9)
[2019-11-03 08:00] VITALS: BP 133/66
[2019-11-03] MEDS: LOSARTAN 50 MG TAB PO SCH (09:04)
[2019-11-03] MEDS: SODIUM PHOS / POTASSIUM PHOS 1 PKT PDR PO SCH (09:04)
[2019-11-03] MEDS: PANTOPRAZOLE 40 MG INJ VIAL IVP SCH (09:04)
[2019-11-03] MEDS: amLODIPine 5 MG TAB PO SCH (09:04)
[2019-11-03] MEDS ORDERED: FOAM DRESSING TP PRN (11:00)
[2019-11-03 16:00] VITALS: BP 136/80
[2019-11-03] MEDS ORDERED: fentaNYL 0.05 MG/ML VIAL ONE (17:41)
[2019-11-03] MEDS ORDERED: ROCURONIUM 50 MG/5 ML VIAL IV ONE (17:41)
[2019-11-03] MEDS ORDERED: ONDANSETRON 4 MG/2 ML VIAL ONE (17:41)
[2019-11-03] MEDS ORDERED: DEXAMETHASONE 4 MG/ML VIAL ONE (17:41)
[2019-11-03] MEDS ORDERED: EPINEPHrine 1:1000 1 MG/ML VIAL IV ONE (17:41)
[2019-11-03] MEDS ORDERED: PROPOFOL 200 MG/20 ML VIAL IV ONE (17:41)
[2019-11-03] MEDS ORDERED: SEVOFLURANE 250 ML BTL INH ONE (17:41)
[2019-11-03] MEDS ORDERED: BUPIVACAINE-MPF/EPI 0.25% 30 ML VIAL INJ ONE (17:51)
[2019-11-03] MEDS ORDERED: ceFAZolin 1,000 MG VIAL ONE (19:00)
[2019-11-03] MEDS ORDERED: DEXT 5% / NACL 0.45% 1,000 ML IV SCH (20:00)
[2019-11-03 20:48] LABS: ANION GAP 7.4 (8-16); CARBON DIOXIDE 29.9 mmol/L (21-32); CHLORIDE 99 mmol/L (98-107); CREATININE 0.7 mg/dL (0.6-1.3); GLUCOSE 132 mg/dL (74-106); POTASSIUM 3.3 mmol/L (3.5-5.1); SODIUM SERUM 133 mmol/L (136-145); UREA NITROGEN, BLOOD 8 mg/dL (7-18)
[2019-11-03 20:58] LABS: BASOPHILS % (AUTO) 0.3 % (0.0-2.0); HEMATOCRIT 28.9 % (36-48); HEMOGLOBIN 9.6 g/dL (12.0-16.0); LYMPHOCYTES # (AUTO) 0.6 K/uL (2.5-16.5); LYMPHOCYTES % (AUTO) 4.2 % (20.5-51.1); MEAN CORPUSCULAR HEMOGLOBIN 27 pg (27-31); MEAN CORPUSCULAR HGB CONC 33 g/dL (33-37); MEAN CORPUSCULAR VOLUME 81.5 fL (80-94); MONOCYTES # (AUTO) 0.5 K/uL (0.8-1.0); NEUTROPHILS # (AUTO) 13.8 K/uL (1.8-7.7); NEUTROPHILS % (AUTO) 92.5 % (42.2-75.2); PLATELET COUNT (AUTO) 331 K/uL (140-450); RED BLOOD CELL COUNT(AUTO) 3.55 MIL/uL (4.20-5.40); RED CELL DISTRIBUTION WIDTH 25.2 % (11.6-13.7); WHITE BLOOD COUNT (AUTO) 14.9 K/uL (4.8-10.8)
[2019-11-03] MEDS: MEROPENEM 1,000 MG in NACL 0.9% 100 ML IV SCH (21:45)
[2019-11-03] MEDS ORDERED: POTASSIUM CHL 20 MEQ/D5-1/2NS 1,000 ML IV ONE (22:05)
[2019-11-03] MEDS: MORPHINE SULFATE 2 MG/ML SYR IVP PRN (22:23)
[2019-11-04 00:01] VITALS: BP 125/65
[2019-11-04] MEDS: LEVOTHYROXINE 0.1 MG TAB PO SCH (05:46)
[2019-11-04 06:01] LABS: BASOPHILS % (AUTO) 0.1 % (0.0-2.0); HEMATOCRIT 29.8 % (36-48); LYMPHOCYTES # (AUTO) 0.3 K/uL (2.5-16.5); MEAN CORPUSCULAR HEMOGLOBIN 27 pg (27-31); MEAN CORPUSCULAR HGB CONC 34 g/dL (33-37); MEAN CORPUSCULAR VOLUME 80.3 fL (80-94); MONOCYTES # (AUTO) 0.5 K/uL (0.8-1.0); MONOCYTES % (AUTO) 3.2 % (1.7-9.3); NEUTROPHILS # (AUTO) 15.7 K/uL (1.8-7.7); NEUTROPHILS % (AUTO) 94.7 % (42.2-75.2); PLATELET COUNT (AUTO) 365 K/uL (140-450); RED BLOOD CELL COUNT(AUTO) 3.71 MIL/uL (4.20-5.40); RED CELL DISTRIBUTION WIDTH 25.3 % (11.6-13.7); WHITE BLOOD COUNT (AUTO) 16.6 K/uL (4.8-10.8)
[2019-11-04 06:12] LABS: ANION GAP 7.8 (8-16); CHLORIDE 101 mmol/L (98-107); CREATININE 0.6 mg/dL (0.6-1.3); GLUCOSE 174 mg/dL (74-106); POTASSIUM 3.8 mmol/L (3.5-5.1); SODIUM SERUM 133 mmol/L (136-145); UREA NITROGEN, BLOOD 8 mg/dL (7-18)
[2019-11-04 06:47] LABS: MAGNESIUM 1.5 mg/dL (1.8-2.4); PHOSPHORUS 2.5 mg/dL (2.5-4.9)
[2019-11-04 08:00] VITALS: BP 120/68
[2019-11-04] MEDS: POTASSIUM CHL 20 MEQ/D5-1/2NS 1,000 ML IV SCH ×2 (10:45→19:15)
[2019-11-04] MEDS: PANTOPRAZOLE 40 MG INJ VIAL IVP SCH (11:09)
[2019-11-04] MEDS: MEROPENEM 1,000 MG in NACL 0.9% 100 ML IV SCH ×2 (11:09→22:12)
[2019-11-04] MEDS: LOSARTAN 50 MG TAB PO SCH (11:10)
[2019-11-04] MEDS: amLODIPine 5 MG TAB PO SCH (11:10)
[2019-11-04] MEDS ORDERED: MAG SULF 2000 MG/WATER PREMIX 100 ML IV SCH (11:15)
[2019-11-04] MEDS: MORPHINE SULFATE 2 MG/ML SYR IVP PRN (11:16)
[2019-11-04 16:00] VITALS: BP 143/76
[2019-11-04] MEDS ORDERED: TPN PER PHARMACY MC PRN (17:05)
[2019-11-05] VITALS: BP 124/70
[2019-11-05] MEDS: POTASSIUM CHL 20 MEQ/D5-1/2NS 1,000 ML IV SCH ×2 (05:51→15:15)
[2019-11-05] MEDS: LEVOTHYROXINE 0.1 MG TAB PO SCH (05:52)
[2019-11-05 06:06] LABS: BASOPHILS % (AUTO) 0.3 % (0.0-2.0); EOSINOPHILS % (AUTO) 0.1 % (0.0-4.0); HEMATOCRIT 27.4 % (36-48); HEMOGLOBIN 9.3 g/dL (12.0-16.0); LYMPHOCYTES # (AUTO) 0.5 K/uL (2.5-16.5); LYMPHOCYTES % (AUTO) 6.5 % (20.5-51.1); MEAN CORPUSCULAR HEMOGLOBIN 27 pg (27-31); MEAN CORPUSCULAR HGB CONC 34 g/dL (33-37); MEAN CORPUSCULAR VOLUME 80.9 fL (80-94); MONOCYTES # (AUTO) 0.7 K/uL (0.8-1.0); MONOCYTES % (AUTO) 8.2 % (1.7-9.3); NEUTROPHILS # (AUTO) 7.2 K/uL (1.8-7.7); NEUTROPHILS % (AUTO) 84.9 % (42.2-75.2); PLATELET COUNT (AUTO) 371 K/uL (140-450); RED BLOOD CELL COUNT(AUTO) 3.39 MIL/uL (4.20-5.40); RED CELL DISTRIBUTION WIDTH 25.4 % (11.6-13.7); WHITE BLOOD COUNT (AUTO) 8.4 K/uL (4.8-10.8)
[2019-11-05 06:07] LABS: ANION GAP 7.1 (8-16); CARBON DIOXIDE 30.9 mmol/L (21-32); CHLORIDE 101 mmol/L (98-107); CREATININE 0.6 mg/dL (0.6-1.3); GLUCOSE 121 mg/dL (74-106); SODIUM SERUM 135 mmol/L (136-145); UREA NITROGEN, BLOOD 8 mg/dL (7-18)
[2019-11-05 06:30] LABS: MAGNESIUM 1.8 mg/dL (1.8-2.4); PHOSPHORUS 1.6 mg/dL (2.5-4.9)
[2019-11-05 08:00] VITALS: BP 155/79
[2019-11-05] MEDS: PANTOPRAZOLE 40 MG INJ VIAL IVP SCH (08:42)
[2019-11-05] MEDS: amLODIPine 5 MG TAB PO SCH (08:44)
[2019-11-05] MEDS: MEROPENEM 1,000 MG in NACL 0.9% 100 ML IV SCH ×2 (08:44→20:29)
[2019-11-05] MEDS: LOSARTAN 50 MG TAB PO SCH (08:44)
[2019-11-05] MEDS: MORPHINE SULFATE 2 MG/ML SYR IVP PRN (08:45)
[2019-11-05] MEDS ORDERED: POTASSIUM PHOSPHATE 15 MM in NACL 0.9% 250 ML IV SCH (11:30)
[2019-11-05] MEDS: KETOROLAC 15 MG/ML VIAL IVP PRN (14:32)
[2019-11-05 16:33] VITALS: BP 155/79
[2019-11-05] MEDS ORDERED: MULTIVITAMIN-12 10 ML in DEXTROSE 50% 600 ML, AMINO ACIDS 8.5% 500 ML, FAT EMULSION 20%... IV SCH ×4 (20:00)
[2019-11-05 23:47] VITALS: BP 123/66
[2019-11-05] MEDS: BLOOD GLUCOSE MONITORING 1 DEV DEV MC SCH (23:50)
[2019-11-06] MEDS ORDERED: INSULIN LISPRO SLIDING SCALE 100 UNITS/ML VIAL SUBQ PRN
[2019-11-06] MEDS: POTASSIUM CHL 20 MEQ/D5-1/2NS 1,000 ML IV SCH ×2 (00:34→18:48)
[2019-11-06] MEDS: KETOROLAC 15 MG/ML VIAL IVP PRN ×3 (02:02→18:41)
[2019-11-06] MEDS: LEVOTHYROXINE 0.1 MG TAB PO SCH (05:31)
[2019-11-06] MEDS: BLOOD GLUCOSE MONITORING 1 DEV DEV MC SCH ×3 (05:38→18:17)
[2019-11-06 06:00] LABS: BASOPHILS % (AUTO) 0.3 % (0.0-2.0); EOSINOPHILS % (AUTO) 0.5 % (0.0-4.0); HEMOGLOBIN 8.5 g/dL (12.0-16.0); LYMPHOCYTES # (AUTO) 0.6 K/uL (2.5-16.5); LYMPHOCYTES % (AUTO) 10.1 % (20.5-51.1); MEAN CORPUSCULAR HEMOGLOBIN 28 pg (27-31); MEAN CORPUSCULAR HGB CONC 34 g/dL (33-37); MEAN CORPUSCULAR VOLUME 80.7 fL (80-94); MONOCYTES # (AUTO) 0.6 K/uL (0.8-1.0); MONOCYTES % (AUTO) 8.7 % (1.7-9.3); NEUTROPHILS # (AUTO) 5.1 K/uL (1.8-7.7); NEUTROPHILS % (AUTO) 80.4 % (42.2-75.2); PLATELET COUNT (AUTO) 379 K/uL (140-450); RED CELL DISTRIBUTION WIDTH 24.7 % (11.6-13.7); WHITE BLOOD COUNT (AUTO) 6.3 K/uL (4.8-10.8)
[2019-11-06 06:39] LABS: ANION GAP 6.8 (8-16); CHLORIDE 103 mmol/L (98-107); CREATININE 0.5 mg/dL (0.6-1.3); GLUCOSE 111 mg/dL (74-106); POTASSIUM 3.8 mmol/L (3.5-5.1); SODIUM SERUM 138 mmol/L (136-145); UREA NITROGEN, BLOOD 5 mg/dL (7-18)
[2019-11-06 06:42] LABS: MAGNESIUM 1.6 mg/dL (1.8-2.4); PHOSPHORUS 2.6 mg/dL (2.5-4.9)
[2019-11-06 08:00] VITALS: BP 135/82
[2019-11-06] MEDS ORDERED: MULTIVITAMIN-12 10 ML in DEXTROSE 50% 480 ML, AMINO ACIDS 8.5% 380 ML, FAT EMULSION 20%... IV SCH ×4 (09:17)
[2019-11-06] MEDS ORDERED: MAG SULF 2000 MG/WATER PREMIX 50 ML IV SCH (09:30)
[2019-11-06] MEDS: PANTOPRAZOLE 40 MG INJ VIAL IVP SCH (09:40)
[2019-11-06] MEDS: amLODIPine 5 MG TAB PO SCH (09:41)
[2019-11-06] MEDS: LOSARTAN 50 MG TAB PO SCH (09:41)
[2019-11-06] MEDS: MEROPENEM 1,000 MG in NACL 0.9% 100 ML IV SCH ×2 (09:54→20:09)
[2019-11-06 16:00] VITALS: BP 131/68
[2019-11-07] MEDS: BLOOD GLUCOSE MONITORING 1 DEV DEV MC SCH ×3 (00:11→12:37)
[2019-11-07 00:29] VITALS: BP 140/85
[2019-11-07] MEDS: KETOROLAC 15 MG/ML VIAL IVP PRN ×4 (00:46→21:34)
[2019-11-07] MEDS: LEVOTHYROXINE 0.1 MG TAB PO SCH (06:40)
[2019-11-07 06:47] LABS: MAGNESIUM 1.9 mg/dL (1.8-2.4)
[2019-11-07 07:04] LABS: ANION GAP 7.8 (8-16); CARBON DIOXIDE 32.7 mmol/L (21-32); CHLORIDE 100 mmol/L (98-107); CREATININE 0.4 mg/dL (0.6-1.3); GLUCOSE 117 mg/dL (74-106); POTASSIUM 3.5 mmol/L (3.5-5.1); SODIUM SERUM 137 mmol/L (136-145); UREA NITROGEN, BLOOD 6 mg/dL (7-18)
[2019-11-07 07:07] LABS: BASOPHILS % (AUTO) 0.3 % (0.0-2.0); EOSINOPHILS # (AUTO) 0.1 K/uL (0-0.4); EOSINOPHILS % (AUTO) 0.7 % (0.0-4.0); HEMATOCRIT 25.8 % (36-48); HEMOGLOBIN 8.6 g/dL (12.0-16.0); LYMPHOCYTES # (AUTO) 0.5 K/uL (2.5-16.5); LYMPHOCYTES % (AUTO) 7.9 % (20.5-51.1); MEAN CORPUSCULAR HEMOGLOBIN 27 pg (27-31); MEAN CORPUSCULAR HGB CONC 33 g/dL (33-37); MEAN CORPUSCULAR VOLUME 81.5 fL (80-94); MONOCYTES # (AUTO) 0.6 K/uL (0.8-1.0); MONOCYTES % (AUTO) 9.3 % (1.7-9.3); NEUTROPHILS # (AUTO) 5.7 K/uL (1.8-7.7); NEUTROPHILS % (AUTO) 81.8 % (42.2-75.2); PLATELET COUNT (AUTO) 460 K/uL (140-450); RED BLOOD CELL COUNT(AUTO) 3.17 MIL/uL (4.20-5.40); RED CELL DISTRIBUTION WIDTH 24.7 % (11.6-13.7); WHITE BLOOD COUNT (AUTO) 6.9 K/uL (4.8-10.8)
[2019-11-07 08:00] VITALS: BP 138/77
[2019-11-07] MEDS: amLODIPine 5 MG TAB PO SCH (08:29)
[2019-11-07] MEDS: PANTOPRAZOLE 40 MG INJ VIAL IVP SCH (08:29)
[2019-11-07] MEDS: LOSARTAN 50 MG TAB PO SCH (08:30)
[2019-11-07] MEDS: MEROPENEM 1,000 MG in NACL 0.9% 100 ML IV SCH ×2 (08:31→21:29)
[2019-11-07] MEDS ORDERED: IBUPROFEN 600 MG TAB PO PRN (15:15)
[2019-11-07 16:00] VITALS: BP 138/75
[2019-11-07] MEDS: POTASSIUM CHL 20 MEQ/D5-1/2NS 1,000 ML IV SCH (23:39)
[2019-11-08] VITALS: BP 139/82
[2019-11-08 05:48] LABS: HEMATOCRIT 25.5 % (36-48); HEMOGLOBIN 8.6 g/dL (12.0-16.0); MEAN CORPUSCULAR HEMOGLOBIN 27 pg (27-31); MEAN CORPUSCULAR HGB CONC 34 g/dL (33-37); MEAN CORPUSCULAR VOLUME 81.3 fL (80-94); PLATELET COUNT (AUTO) 518 K/uL (140-450); RED BLOOD CELL COUNT(AUTO) 3.14 MIL/uL (4.20-5.40); RED CELL DISTRIBUTION WIDTH 24.4 % (11.6-13.7); WHITE BLOOD COUNT (AUTO) 6.6 K/uL (4.8-10.8)
[2019-11-08 06:08] LABS: CREATININE 0.4 mg/dL (0.6-1.3); GLUCOSE 98 mg/dL (74-106); UREA NITROGEN, BLOOD 6 mg/dL (7-18)
[2019-11-08 06:15] LABS: MAGNESIUM 1.8 mg/dL (1.8-2.4); PHOSPHORUS 2.6 mg/dL (2.5-4.9)
[2019-11-08] MEDS: LEVOTHYROXINE 0.1 MG TAB PO SCH (06:21)
[2019-11-08 06:32] LABS: ANION GAP 6.9 (8-16); CARBON DIOXIDE 31.4 mmol/L (21-32); CHLORIDE 101 mmol/L (98-107); POTASSIUM 3.3 mmol/L (3.5-5.1); SODIUM SERUM 136 mmol/L (136-145)
[2019-11-08 07:04] LABS: LYMPHOCYTES % (MANUAL) 10 % (20-46); MONOCYTES % (MANUAL) 9 % (5-12)
[2019-11-08 08:00] VITALS: BP 144/84
[2019-11-08] MEDS: MEROPENEM 1,000 MG in NACL 0.9% 100 ML IV SCH ×2 (08:49→20:20)
[2019-11-08] MEDS: PANTOPRAZOLE 40 MG INJ VIAL IVP SCH (08:50)
[2019-11-08] MEDS: LOSARTAN 50 MG TAB PO SCH (08:50)
[2019-11-08] MEDS: amLODIPine 5 MG TAB PO SCH (08:51)
[2019-11-08] MEDS ORDERED: POTASSIUM CHLORIDE 10 MEQ TABER PO SCH ×2 (12:15→16:30)
[2019-11-08 16:00] VITALS: BP 135/77
[2019-11-08] MEDS ORDERED: Z-GUARD PASTE TP PRN (16:25)
[2019-11-08] MEDS: KETOROLAC 15 MG/ML VIAL IVP PRN ×2 (16:48→23:46)
[2019-11-08] MEDS: POTASSIUM CHL 20 MEQ/D5-1/2NS 1,000 ML IV SCH (20:01)
[2019-11-09] VITALS: BP 129/72
[2019-11-09 06:11] LABS: BASOPHILS # (AUTO) 0.1 K/uL (0.00-0.22); BASOPHILS % (AUTO) 1.1 % (0.0-2.0); EOSINOPHILS # (AUTO) 0.1 K/uL (0-0.4); EOSINOPHILS % (AUTO) 1.7 % (0.0-4.0); HEMATOCRIT 24.8 % (36-48); HEMOGLOBIN 8.2 g/dL (12.0-16.0); LYMPHOCYTES # (AUTO) 0.6 K/uL (2.5-16.5); MEAN CORPUSCULAR HEMOGLOBIN 27 pg (27-31); MEAN CORPUSCULAR HGB CONC 33 g/dL (33-37); MEAN CORPUSCULAR VOLUME 81.9 fL (80-94); MONOCYTES # (AUTO) 0.6 K/uL (0.8-1.0); NEUTROPHILS # (AUTO) 5.8 K/uL (1.8-7.7); PLATELET COUNT (AUTO) 483 K/uL (140-450); RED BLOOD CELL COUNT(AUTO) 3.03 MIL/uL (4.20-5.40); RED CELL DISTRIBUTION WIDTH 24.5 % (11.6-13.7); WHITE BLOOD COUNT (AUTO) 7.1 K/uL (4.8-10.8)
[2019-11-09] MEDS: LEVOTHYROXINE 0.1 MG TAB PO SCH (06:28)
[2019-11-09 06:34] LABS: MAGNESIUM 1.6 mg/dL (1.8-2.4); PHOSPHORUS 2.6 mg/dL (2.5-4.9)
[2019-11-09 07:04] LABS: ANION GAP 7.7 (8-16); CARBON DIOXIDE 28.5 mmol/L (21-32); CHLORIDE 103 mmol/L (98-107); CREATININE 0.4 mg/dL (0.6-1.3); GLUCOSE 104 mg/dL (74-106); POTASSIUM 4.2 mmol/L (3.5-5.1); SODIUM SERUM 135 mmol/L (136-145); UREA NITROGEN, BLOOD 6 mg/dL (7-18)
[2019-11-09 07:45] LABS: LYMPHOCYTES % (AUTO) 8.2 % (20.5-51.1); MONOCYTES % (AUTO) 8.1 % (1.7-9.3); NEUTROPHILS % (AUTO) 80.9 % (42.2-75.2)
[2019-11-09 08:00] VITALS: BP 140/78
[2019-11-09] MEDS: PANTOPRAZOLE 40 MG INJ VIAL IVP SCH (08:04)
[2019-11-09] MEDS: amLODIPine 5 MG TAB PO SCH (08:06)
[2019-11-09] MEDS: LACTOBACILLUS RHAMNOSUS GG 1 EACH CAP PO SCH (08:06)
[2019-11-09] MEDS: LOSARTAN 50 MG TAB PO SCH (08:06)
[2019-11-09] MEDS: MEROPENEM 1,000 MG in NACL 0.9% 100 ML IV SCH ×2 (08:07→20:47)
[2019-11-09] MEDS ORDERED: MAGNESIUM OXIDE 400 MG TAB PO SCH (10:00)
[2019-11-09] MEDS ORDERED: VANCOMYCIN 500 MG VIAL PO SCH (12:00)
[2019-11-09] MEDS ORDERED: CHOLESTYRAMINE 4 GM/9 GM PKT PO SCH (13:00)
[2019-11-09 16:00] VITALS: BP 134/88
[2019-11-09] MEDS: KETOROLAC 15 MG/ML VIAL IVP PRN (17:52)
[2019-11-09] MEDS: POTASSIUM CHL 20 MEQ/D5-1/2NS 1,000 ML IV SCH (23:39)
[2019-11-10] VITALS: BP 142/76
[2019-11-10] MEDS: LEVOTHYROXINE 0.1 MG TAB PO SCH (06:03)
[2019-11-10] MEDS ORDERED: CHOLESTYRAMINE 4 GM/9 GM PKT PO SCH ×2 (07:00→09:00)
[2019-11-10 07:23] LABS: BASOPHILS # (AUTO) 0.1 K/uL (0.00-0.22); BASOPHILS % (AUTO) 0.7 % (0.0-2.0); EOSINOPHILS % (AUTO) 0.5 % (0.0-4.0); HEMATOCRIT 25.6 % (36-48); HEMOGLOBIN 8.6 g/dL (12.0-16.0); LYMPHOCYTES # (AUTO) 0.6 K/uL (2.5-16.5); LYMPHOCYTES % (AUTO) 7.4 % (20.5-51.1); MEAN CORPUSCULAR HEMOGLOBIN 27 pg (27-31); MEAN CORPUSCULAR HGB CONC 34 g/dL (33-37); MEAN CORPUSCULAR VOLUME 81.4 fL (80-94); MONOCYTES # (AUTO) 0.6 K/uL (0.8-1.0); MONOCYTES % (AUTO) 7.7 % (1.7-9.3); NEUTROPHILS # (AUTO) 6.4 K/uL (1.8-7.7); NEUTROPHILS % (AUTO) 83.7 % (42.2-75.2); PLATELET COUNT (AUTO) 533 K/uL (140-450); RED BLOOD CELL COUNT(AUTO) 3.14 MIL/uL (4.20-5.40); RED CELL DISTRIBUTION WIDTH 24.2 % (11.6-13.7); WHITE BLOOD COUNT (AUTO) 7.6 K/uL (4.8-10.8)
[2019-11-10 07:29] LABS: CARBON DIOXIDE 28.7 mmol/L (21-32); CHLORIDE 102 mmol/L (98-107); CREATININE 0.5 mg/dL (0.6-1.3); GLUCOSE 103 mg/dL (74-106); POTASSIUM 3.7 mmol/L (3.5-5.1); SODIUM SERUM 137 mmol/L (136-145); UREA NITROGEN, BLOOD 7 mg/dL (7-18)
[2019-11-10 07:40] LABS: MAGNESIUM 1.5 mg/dL (1.8-2.4); PHOSPHORUS 2.9 mg/dL (2.5-4.9)
[2019-11-10 08:00] VITALS: BP 135/71
[2019-11-10] MEDS ORDERED: MAG SULF 2000 MG/WATER PREMIX 100 ML IV SCH (08:30)
[2019-11-10] MEDS: MEROPENEM 1,000 MG in NACL 0.9% 100 ML IV SCH (09:30)
[2019-11-10] MEDS: amLODIPine 5 MG TAB PO SCH (09:31)
[2019-11-10] MEDS: PANTOPRAZOLE 40 MG INJ VIAL IVP SCH (09:31)
[2019-11-10] MEDS: LOSARTAN 50 MG TAB PO SCH (09:31)
[2019-11-10] MEDS: LACTOBACILLUS RHAMNOSUS GG 1 EACH CAP PO SCH (09:31)
[2019-11-10] MEDS: KETOROLAC 15 MG/ML VIAL IVP PRN ×2 (12:40→20:55)
[2019-11-10] MEDS ORDERED: cloNIDine 0.1 MG TAB PO SCH (14:20)
[2019-11-10] MEDS: CHOLESTYRAMINE 4 GM/9 GM PKT PO SCH ×2 (14:57→21:37)
[2019-11-10 16:00] VITALS: BP 123/74
[2019-11-10] MEDS: DIPHENOXYLATE /ATROPINE 2.5 MG TAB PO PRN (18:12)
[2019-11-10] MEDS: cloNIDine 0.1 MG TAB PO SCH (21:00)
[2019-11-11] VITALS: BP 117/68
[2019-11-11] MEDS: POTASSIUM CHL 20 MEQ/D5-1/2NS 1,000 ML IV SCH ×3 (00:53→23:48)
[2019-11-11 06:53] LABS: HEMOGLOBIN 8.4 g/dL (12.0-16.0)
[2019-11-11 07:03] LABS: HEMATOCRIT 24.9 % (36-48); MEAN CORPUSCULAR HEMOGLOBIN 27 pg (27-31); MEAN CORPUSCULAR HGB CONC 34 g/dL (33-37); MEAN CORPUSCULAR VOLUME 81.3 fL (80-94); PLATELET COUNT (AUTO) 549 K/uL (140-450); RED BLOOD CELL COUNT(AUTO) 3.07 MIL/uL (4.20-5.40); RED CELL DISTRIBUTION WIDTH 23.7 % (11.6-13.7); WHITE BLOOD COUNT (AUTO) 7.8 K/uL (4.8-10.8)
[2019-11-11 07:32] LABS: ANION GAP 9.1 (8-16); CARBON DIOXIDE 29.5 mmol/L (21-32); CHLORIDE 101 mmol/L (98-107); CREATININE 0.5 mg/dL (0.6-1.3); GLUCOSE 101 mg/dL (74-106); POTASSIUM 3.6 mmol/L (3.5-5.1); SODIUM SERUM 136 mmol/L (136-145); UREA NITROGEN, BLOOD 7 mg/dL (7-18)
[2019-11-11 07:33] LABS: MAGNESIUM 1.6 mg/dL (1.8-2.4)
[2019-11-11 08:00] VITALS: BP 123/68
[2019-11-11] MEDS: KETOROLAC 15 MG/ML VIAL IVP PRN ×3 (08:39→21:43)
[2019-11-11] MEDS: CHOLESTYRAMINE 4 GM/9 GM PKT PO SCH ×2 (08:40→21:32)
[2019-11-11] MEDS: cloNIDine 0.1 MG TAB PO SCH ×2 (08:43→21:00)
[2019-11-11 10:07] LABS: EOSINOPHILS % (MANUAL) 2 % (0-4); LYMPHOCYTES % (MANUAL) 8 % (20-46); MONOCYTES % (MANUAL) 7 % (5-12)
[2019-11-11] MEDS ORDERED: MAG SULF 2000 MG/WATER PREMIX 50 ML IV SCH (12:00)
[2019-11-11 16:00] VITALS: BP 123/75
[2019-11-12] VITALS: BP 99/59
[2019-11-12] MEDS: KETOROLAC 15 MG/ML VIAL IVP PRN ×3 (04:38→17:26)
[2019-11-12] MEDS: DIPHENOXYLATE /ATROPINE 2.5 MG TAB PO PRN (04:54)
[2019-11-12 06:02] LABS: BASOPHILS # (AUTO) 0.1 K/uL (0.00-0.22); BASOPHILS % (AUTO) 0.8 % (0.0-2.0); EOSINOPHILS # (AUTO) 0.1 K/uL (0-0.4); EOSINOPHILS % (AUTO) 1.1 % (0.0-4.0); HEMATOCRIT 24.7 % (36-48); HEMOGLOBIN 8.3 g/dL (12.0-16.0); LYMPHOCYTES # (AUTO) 0.8 K/uL (2.5-16.5); LYMPHOCYTES % (AUTO) 10.6 % (20.5-51.1); MEAN CORPUSCULAR HEMOGLOBIN 27 pg (27-31); MEAN CORPUSCULAR HGB CONC 34 g/dL (33-37); MEAN CORPUSCULAR VOLUME 81.2 fL (80-94); MONOCYTES # (AUTO) 0.6 K/uL (0.8-1.0); MONOCYTES % (AUTO) 8.2 % (1.7-9.3); NEUTROPHILS # (AUTO) 5.8 K/uL (1.8-7.7); NEUTROPHILS % (AUTO) 79.3 % (42.2-75.2); PLATELET COUNT (AUTO) 564 K/uL (140-450); RED BLOOD CELL COUNT(AUTO) 3.05 MIL/uL (4.20-5.40); RED CELL DISTRIBUTION WIDTH 24.2 % (11.6-13.7); WHITE BLOOD COUNT (AUTO) 7.2 K/uL (4.8-10.8)
[2019-11-12 06:25] LABS: ANION GAP 10.5 (8-16); CARBON DIOXIDE 26.4 mmol/L (21-32); CHLORIDE 103 mmol/L (98-107); CREATININE 0.6 mg/dL (0.6-1.3); GLUCOSE 101 mg/dL (74-106); POTASSIUM 3.9 mmol/L (3.5-5.1); SODIUM SERUM 136 mmol/L (136-145); UREA NITROGEN, BLOOD 12 mg/dL (7-18)
[2019-11-12 06:35] LABS: MAGNESIUM 1.8 mg/dL (1.8-2.4); PHOSPHORUS 2.9 mg/dL (2.5-4.9)
[2019-11-12 08:00] VITALS: BP 118/61
[2019-11-12] MEDS: CHOLESTYRAMINE 4 GM/9 GM PKT PO SCH (08:46)
[2019-11-12] MEDS: cloNIDine 0.1 MG TAB PO SCH (08:48)
[2019-11-12] MEDS ORDERED: ATRO1TAB60 PO (10:17)
[2019-11-12] MEDS ORDERED: IBUP-2213 PO (11:58)
[2019-11-12] MEDS ORDERED: ATRO1TAB PO (14:12)
[2019-11-12 16:00] VITALS: BP 119/65
[2019-11-12] MEDS ORDERED: SULF-59 PO (16:06)
== END 2019-11-12 20:40 | disposition home or self-care (01) | DRG 710 ==
LOC: MED 12:07 → MTU 14:50
PROVIDERS: ADMIT General Practice; ATTEND General Practice
PROC: 0DTJ0ZZ Resection of Appendix, Open Approach (ICD-10-PCS; 2019-10-31)
PROC: 0DNJ0ZZ Release Appendix, Open Approach (ICD-10-PCS; 2019-10-31)
PROC: 0D9670Z Drainage of Stomach with Drainage Device, Via Natural or Artificial Opening (ICD-10-PCS; principal; 2019-10-31 14:45)
PROC: 0DB60ZZ Excision of Stomach, Open Approach (ICD-10-PCS; 2019-11-03)
PROC: 0JNC0ZZ Release Pelvic Region Subcutaneous Tissue and Fascia, Open Approach (ICD-10-PCS; 2019-11-03)
PROC: 05HY33Z Insertion of Infusion Device into Upper Vein, Percutaneous Approach (ICD-10-PCS; 2019-11-05)
PROC: B54MZZA Ultrasonography of Right Upper Extremity Veins, Guidance (ICD-10-PCS; 2019-11-05)
DX: A41.9 Sepsis, unspecified organism (principal); K56.50 Intestinal adhesions [bands], unspecified as to partial versus complete obstruction; J18.9 Pneumonia, unspecified organism; K35.32 Acute appendicitis with perforation, localized peritonitis, and gangrene, without abscess; D63.8 Anemia in other chronic diseases classified elsewhere; N39.0 Urinary tract infection, site not specified; K57.92 Diverticulitis of intestine, part unspecified, without perforation or abscess without bleeding; E44.1 Mild protein-calorie malnutrition; J44.9 Chronic obstructive pulmonary disease, unspecified; E83.39 Other disorders of phosphorus metabolism; E83.42 Hypomagnesemia; E03.9 Hypothyroidism, unspecified; I10 Essential (primary) hypertension; K21.9 Gastro-esophageal reflux disease without esophagitis; Z88.6 Allergy status to analgesic agent; Z90.710 Acquired absence of both cervix and uterus; Z96.642 Presence of left artificial hip joint; Z68.23 Body mass index [BMI] 23.0-23.9, adult; Z88.8 Allergy status to other drugs, medicaments and biological substances; E87.1 Hypo-osmolality and hyponatremia; Z83.3 Family history of diabetes mellitus; Z82.49 Family history of ischemic heart disease and other diseases of the circulatory system; N28.1 Cyst of kidney, acquired
CPT/HCPCS: 36415; 71045; 74018; 80048; 80053; 81001; 82150; 82948; 83036; 83605; 83690; 83735; 84100; 84443; 84478; 85025; 85610; 85730; 86886; 86900; 86901; 87040; 87070; 87075; 87081; 87086; 87205; 88304; 88307; 89055; 93005; 96365; 96375; 97110; 97112; 97116; 97161-GP; 97530; 99285; A9153; C1751; C9113; J0171; J0330; J0690; J1100; J1644; J1885; J2001; J2185; J2270; J2405; J2543; J2704; J2710; J3010; J3370; J3475; J3480; J3490; J7030; J7042; J7060; J7120; Q0092; Q9967

== ENCOUNTER 2021-07-02 11:59 | Inpatient (IN) | payer MEDICAID, SELFPAY ==
[~2021-07-02] VITALS: Ht 167.6 cm; Wt 54.9 kg
[~2021-07-02 11:59] MED LIST changes: +ASPI-1822 PO; +ATOR20TA PO; +ATRO1TAB PO; -IBUP-1842 PO; +IBUP-2213 PO; -LEVO0.1T32 PO; +ONDA-188 PO; -ONDA-24 PO; +SULF-59 PO; +[UNRECOGNIZED DRUG - CODE] PO
[2021-07-02 12:10] VITALS: BP 176/106
[2021-07-02] MEDS ORDERED: LEVALBUTEROL 0.63 MG/3 ML NEBU INH ONE (12:10)
[2021-07-02] MEDS ORDERED: KETOROLAC 30 MG/ML VIAL IM ONE (12:10)
--- NOTE | 2021-07-02 12:17 | NUR ---
COLLECTED ALICE IGNACIO.
--- NOTE | 2021-07-02 13:00 | NUR ---
PT TAKEN TO XR VIA W/C.
[2021-07-02] MEDS ORDERED: methylPREDNISolone SS 125 MG in WATER STERILE 2 ML IV ONE (14:00)
[2021-07-02] MEDS ORDERED: NACL 0.9% 1,000 ML IV ONE (14:00)
--- NOTE | 2021-07-02 14:52 | NUR ---
PT MOVED TO BED CHF
--- NOTE | 2021-07-02 15:09 | NUR ---
SPO2 IN HIGH 80S ON RA. PT PLACED ON 2L N/C. NO SIGNS OF DISTRESS. DR TINOCO MADE AWARE
--- NOTE | 2021-07-02 16:01 | NUR ---
PT RESTING IN BED WITH EVEN AND UNLABORED RESPIRATIONS, PT ON 2L N/C, NO SIGNS OF RESPIRATORY DISTRESS
--- NOTE | 2021-07-02 17:30 | NUR ---
20 G IV ESTABLISHED TO L AC, BLOOD SAMPLES COLLECTED AND WALKED TO LAB
[2021-07-02 18:31] LABS: BASOPHILS % (AUTO) 0.5 % (0.0-2.0); EOSINOPHILS % (AUTO) 1.1 % (0.0-4.0); HEMATOCRIT 35.7 % (36-48); HEMOGLOBIN 12.2 g/dL (12.0-16.0); LYMPHOCYTES # (AUTO) 0.9 K/uL (2.5-16.5); MEAN CORPUSCULAR HEMOGLOBIN 33 pg (27-31); MEAN CORPUSCULAR HGB CONC 34 g/dL (33-37); MEAN CORPUSCULAR VOLUME 95.2 fL (80-94); MONOCYTES # (AUTO) 0.4 K/uL (0.8-1.0); MONOCYTES % (AUTO) 10.2 % (1.7-9.3); NEUTROPHILS % (AUTO) 67.2 % (42.2-75.2); PLATELET COUNT (AUTO) 173 K/uL (140-450); RED BLOOD CELL COUNT(AUTO) 3.75 MIL/uL (4.20-5.40); RED CELL DISTRIBUTION WIDTH 13.6 % (11.6-13.7); WHITE BLOOD COUNT (AUTO) 4.4 K/uL (4.8-10.8)
[2021-07-02 18:57] LABS: ALBUMIN 3.5 g/dL (3.4-5.0); ANION GAP 10.1 (8-16); ASPARTATE AMINOTRANSFERASE 28 U/L (15-37); CARBON DIOXIDE 29.1 mmol/L (21-32); CHLORIDE 107 mmol/L (98-107); CREATININE 0.6 mg/dL (0.6-1.3); GLUCOSE 91 mg/dL (74-106); POTASSIUM 3.2 mmol/L (3.5-5.1); SODIUM SERUM 143 mmol/L (136-145); TOTAL BILIRUBIN 0.5 mg/dL (0.0-1.0); UREA NITROGEN, BLOOD 10 mg/dL (7-18)
[2021-07-02] MEDS ORDERED: methylPREDNISolone SS 125 MG/2 ML VIAL ONE (19:26)
--- NOTE | 2021-07-02 19:32 | NUR ---
REPORT GIVEN TO FLORIDA JONES, TRANSFER OF CARE AT THIS TIME
[2021-07-02] MEDS ORDERED: ALBUTEROL SULFATE/IPRATROPIU 3 ML SOL IH ONE (20:10)
[2021-07-02 20:13] LABS: APPEARANCE,URINE CLEAR (CLEAR); BILIRUBIN,URINE NEGATIVE (NEGATIVE); BLOOD, URINE NEGATIVE (NEGATIVE); COLOR,URINE YELLOW (YELLOW); LEUKOCYTE ESTERASE ,URINE NEGATIVE (NEGATIVE); NITRITE, URINE NEGATIVE (NEGATIVE); UGLUCOSE NEGATIVE (NEGATIVE)
--- NOTE | 2021-07-02 20:49 | NUR ---
MYKEL WELLER DAUGHTER CALLED REQUESTING UPDATE [phone]
--- NOTE | 2021-07-02 22:35 | NUR ---
PT TRANSFERED FROM TO BED 11 THEN AMBULATED TO BR WITH STEADY GAIT
[2021-07-03] MEDS: methylPREDNISolone SS 125 MG/2 ML VIAL IVP SCH ×4 (03:56→20:36)
--- NOTE | 2021-07-03 07:30 | NUR ---
RESUMED CARE OF PT. PT LAYING IN BED WITH EVEN AND UNLABORED RESPIRATIONS, NO SIGNS OF DISTRESS AT THIS TIME. WILL CONTINUE TO MONITOR
--- NOTE | 2021-07-03 09:19 | NUR ---
PT GIVEN BREAKFAST TRAY AT THIS TIME.
[2021-07-03] MEDS ORDERED: ZOLPIDEM 5 MG TAB PO PRN (10:35)
[2021-07-03] MEDS ORDERED: DOCUSATE SODIUM 100 MG GELCAP PO PRN (10:35)
[2021-07-03] MEDS ORDERED: MAG SULF 2000 MG/WATER PREMIX 50 ML IV PRN (10:35)
[2021-07-03] MEDS ORDERED: ONDANSETRON 4 MG/2 ML VIAL IM/IVP PRN (10:35)
[2021-07-03] MEDS ORDERED: ALBUTEROL SULFATE/IPRATROPIU 3 ML SOL IH PRN (10:35)
[2021-07-03] MEDS ORDERED: LORazepam 2 MG/ML VIAL IM/IVP PRN (10:35)
[2021-07-03] MEDS ORDERED: AZITHROMYCIN 250 MG TAB PO ONE (10:45)
--- NOTE | 2021-07-03 10:54 | NUR ---
PT MOVED TO BED 01. AMBULATED WITH CANE ASSISTANCE.
[2021-07-03] MEDS ORDERED: AZITHROMYCIN 500 MG INJ VIAL IV ONE (13:15)
[2021-07-03] MEDS ORDERED: cefTRIAXone 1,000 MG VIAL ONE (13:15)
[2021-07-03] MEDS ORDERED: AZITHROMYCIN 250 MG TAB ONE (13:17)
[2021-07-03] MEDS: NACL 0.9% 1,000 ML IV SCH (13:29)
[2021-07-03 14:03] LABS: BASOPHILS % (AUTO) 0.2 % (0.0-2.0); HEMATOCRIT 36.2 % (36-48); HEMOGLOBIN 12.6 g/dL (12.0-16.0); LYMPHOCYTES # (AUTO) 0.5 K/uL (2.5-16.5); LYMPHOCYTES % (AUTO) 21.9 % (20.5-51.1); MEAN CORPUSCULAR HEMOGLOBIN 33 pg (27-31); MEAN CORPUSCULAR HGB CONC 35 g/dL (33-37); MEAN CORPUSCULAR VOLUME 94.2 fL (80-94); MONOCYTES # (AUTO) 0.1 K/uL (0.8-1.0); MONOCYTES % (AUTO) 3.5 % (1.7-9.3); NEUTROPHILS # (AUTO) 1.6 K/uL (1.8-7.7); NEUTROPHILS % (AUTO) 74.4 % (42.2-75.2); PLATELET COUNT (AUTO) 195 K/uL (140-450); RED BLOOD CELL COUNT(AUTO) 3.84 MIL/uL (4.20-5.40); RED CELL DISTRIBUTION WIDTH 13.5 % (11.6-13.7); WHITE BLOOD COUNT (AUTO) 2.2 K/uL (4.8-10.8)
[2021-07-03] MEDS: ALBUTEROL SULFATE/IPRATROPIU 3 ML SOL IH SCH ×2 (14:18→19:45)
--- NOTE | 2021-07-03 14:30 | NUR ---
Patient appears to be resting comfortably in bed. Vital Signs within normal limits. Respirations even and unlabored. pt placed on bedpan, 50 ml of dark yellow urine.
[2021-07-03 14:32] LABS: PROTHROMBIN TIME 10.5 secs (10.8-13.4)
[2021-07-03 14:40] LABS: CHOL/HDL RATIO 2.9 (1-4.5); MAGNESIUM 1.6 mg/dL (1.8-2.4); PHOSPHORUS 2.9 mg/dL (2.5-4.9); THYROID STIMULATING HORMONE 1.16 uIU/mL (0.34-3.74)
[2021-07-03 15:04] LABS: ANION GAP 12.4 (8-16); CARBON DIOXIDE 27.5 mmol/L (21-32); CHLORIDE 105 mmol/L (98-107); CREATININE 0.6 mg/dL (0.6-1.3); GLUCOSE 188 mg/dL (74-106); SODIUM SERUM 142 mmol/L (136-145); UREA NITROGEN, BLOOD 10 mg/dL (7-18)
[2021-07-03 15:08] LABS: POTASSIUM 2.9 mmol/L (3.5-5.1)
[2021-07-03] MEDS ORDERED: POTASSIUM CHLORIDE 10 MEQ TABER PO ONE (17:28)
[2021-07-03] MEDS: POTASSIUM CHLORIDE 10 MEQ TABER PO PRN (17:42)
--- NOTE | 2021-07-03 19:35 | NUR ---
pt is awake and alert. bed mandel emptied. all needs met at this time. bed locked in lowest position, side rails x2. vss. pt in stable condition.
--- NOTE | 2021-07-03 20:37 | NUR ---
rt at bedside.
--- NOTE | 2021-07-03 21:20 | NUR ---
pt is awake and alert. vss. pt is in stable condition. all needs met at this time. bed locked in lowest position, side rails x2 for safety.
--- NOTE | 2021-07-04 01:33 | NUR ---
PT HAS EYES CLOSED. OPENS TO SOUND. EQUAL RISE AND FALL OF CHEST WALL. NO SOB. VSS. PT IS IN STABLE CONDITION. BED LOCKED IN LOWEST POSITION, SIDE RAILS X2 FOR SAFETY.
--- NOTE | 2021-07-04 02:55 | NUR ---
PT AMBULATED TO USING CANE AND BACK TO BED.
[2021-07-04] MEDS: NACL 0.9% 1,000 ML IV SCH ×2 (03:23→20:54)
--- NOTE | 2021-07-04 07:21 | NUR ---
REPORT GIVEN TO KAREN BURNS. PEPE OF [facility] AT THIS TIME.
[2021-07-04] MEDS ORDERED: NON-FORMULARY ITEM (Omeprazole 20 MG) PO SCH (09:00)
[2021-07-04] MEDS: ALBUTEROL SULFATE/IPRATROPIU 3 ML SOL IH SCH ×3 (09:06→20:04)
--- NOTE | 2021-07-04 09:30 | NUR ---
PATIENT HAS BEEN SCREENED AND CATEGORIZED MODERATE NUTRITION RISK. PATIENT WILL BE SEEN WITHIN 3-5 DAYS OF ADMISSION. 07/05/21-07/07/[address]
[2021-07-04] MEDS: methylPREDNISolone SS 40 MG/ML VIAL IVP SCH ×3 (09:37→20:55)
[2021-07-04] MEDS: ASPIRIN 81 MG TAB.CHEW PO SCH (09:45)
[2021-07-04] MEDS: amLODIPine 5 MG TAB PO SCH (09:46)
[2021-07-04] MEDS: LOSARTAN 50 MG TAB PO SCH (09:47)
[2021-07-04] MEDS: AZITHROMYCIN 250 MG TAB PO SCH (09:47)
[2021-07-04] MEDS: ATORVASTATIN 20 MG TAB PO SCH (09:48)
[2021-07-04] MEDS: PANTOPRAZOLE 40 MG TABEC PO SCH (09:48)
[2021-07-04] MEDS: LEVOTHYROXINE 0.1 MG TAB PO SCH (09:51)
--- NOTE | 2021-07-04 10:20 | NUR ---
Patient appears to be resting comfortably in bed. Vital Signs within normal limits. Respirations even and unlabored. breakfast tray given.
[2021-07-04 10:41] LABS: ANION GAP 9.6 (8-16); CARBON DIOXIDE 29.9 mmol/L (21-32); CHLORIDE 108 mmol/L (98-107); CREATININE 0.5 mg/dL (0.6-1.3); GLUCOSE 113 mg/dL (74-106); POTASSIUM 3.5 mmol/L (3.5-5.1); SODIUM SERUM 144 mmol/L (136-145); UREA NITROGEN, BLOOD 14 mg/dL (7-18)
[2021-07-04 10:50] LABS: MAGNESIUM 1.7 mg/dL (1.8-2.4); PHOSPHORUS 2.8 mg/dL (2.5-4.9)
[2021-07-04 10:55] LABS: BASOPHILS % (AUTO) 0.1 % (0.0-2.0); HEMOGLOBIN 12.1 g/dL (12.0-16.0); LYMPHOCYTES # (AUTO) 0.9 K/uL (2.5-16.5); LYMPHOCYTES % (AUTO) 14.6 % (20.5-51.1); MEAN CORPUSCULAR HEMOGLOBIN 33 pg (27-31); MEAN CORPUSCULAR HGB CONC 35 g/dL (33-37); MEAN CORPUSCULAR VOLUME 94.8 fL (80-94); MONOCYTES # (AUTO) 0.5 K/uL (0.8-1.0); MONOCYTES % (AUTO) 7.5 % (1.7-9.3); NEUTROPHILS % (AUTO) 77.8 % (42.2-75.2); PLATELET COUNT (AUTO) 208 K/uL (140-450); RED BLOOD CELL COUNT(AUTO) 3.69 MIL/uL (4.20-5.40); RED CELL DISTRIBUTION WIDTH 13.7 % (11.6-13.7); WHITE BLOOD COUNT (AUTO) 6.4 K/uL (4.8-10.8)
--- NOTE | 2021-07-04 13:00 | NUR ---
Patient appears to be resting comfortably in bed. Vital Signs within normal limits. Respirations even and unlabored. lunch was given to pt at this time.
[2021-07-04] MEDS ORDERED: cefTRIAXone 1,000 MG VIAL ONE (13:09)
--- NOTE | 2021-07-04 19:32 | NUR ---
REPORT RECIEVED FROM GRANT JONES
[2021-07-05] VITALS (11 sets, daily range): BP systolic 107–158; BP diastolic 58–99
[2021-07-05] MEDS: methylPREDNISolone SS 40 MG/ML VIAL IVP SCH ×3 (06:45→20:44)
[2021-07-05 07:00] LABS: BASOPHILS % (AUTO) 0.2 % (0.0-2.0); HEMATOCRIT 33.6 % (36-48); HEMOGLOBIN 11.6 g/dL (12.0-16.0); LYMPHOCYTES # (AUTO) 0.8 K/uL (2.5-16.5); LYMPHOCYTES % (AUTO) 12.6 % (20.5-51.1); MEAN CORPUSCULAR HEMOGLOBIN 33 pg (27-31); MEAN CORPUSCULAR HGB CONC 35 g/dL (33-37); MEAN CORPUSCULAR VOLUME 94.7 fL (80-94); MONOCYTES # (AUTO) 0.4 K/uL (0.8-1.0); MONOCYTES % (AUTO) 6.3 % (1.7-9.3); NEUTROPHILS # (AUTO) 5.1 K/uL (1.8-7.7); NEUTROPHILS % (AUTO) 80.9 % (42.2-75.2); PLATELET COUNT (AUTO) 205 K/uL (140-450); RED BLOOD CELL COUNT(AUTO) 3.55 MIL/uL (4.20-5.40); RED CELL DISTRIBUTION WIDTH 13.6 % (11.6-13.7); WHITE BLOOD COUNT (AUTO) 6.3 K/uL (4.8-10.8)
[2021-07-05] MEDS: ALBUTEROL SULFATE/IPRATROPIU 3 ML SOL IH SCH ×3 (07:36→20:58)
--- NOTE | 2021-07-05 07:38 | NUR ---
Pt report given to jaspal doyle per velia doyle. Transfer of care at this time.
[2021-07-05 08:06] LABS: MAGNESIUM 1.7 mg/dL (1.8-2.4)
--- NOTE | 2021-07-05 08:55 | NUR ---
novel and influenza swabbed and given to lizabeth gore
[2021-07-05 09:00] LABS: CARBON DIOXIDE 29.9 mmol/L (21-32); CHLORIDE 107 mmol/L (98-107); CREATININE 0.6 mg/dL (0.6-1.3); GLUCOSE 116 mg/dL (74-106); POTASSIUM 3.9 mmol/L (3.5-5.1); SODIUM SERUM 144 mmol/L (136-145); UREA NITROGEN, BLOOD 14 mg/dL (7-18)
[2021-07-05] MEDS ORDERED: ALBU0.0912 IH (09:21)
[2021-07-05] MEDS ORDERED: DEC4 PO (09:21)
[2021-07-05] MEDS ORDERED: CEPH-588 PO (09:21)
[2021-07-05] MEDS ORDERED: ADENOSINE 6 MG/2 ML VIAL IVP ONE ×6 (09:28→11:20)
--- NOTE | 2021-07-05 09:30 | NUR ---
pt stated she started feeling very sob and chest pain 04/10. dr dixon notified for carotid massage, no relief rate still at 185 per bellows charger assemblerdorian moody was called, preeti black ordered medications. 0936 adenosine 6mg iv push given, rate: 190 0938 adenosine 6mg iv push given, rate: 200 0947 cardizem 20mg iv push given, rate: 160 0955 cardizem 20mg iv push given, rate: 99
[2021-07-05] MEDS ORDERED: DILTIAZEM 25 MG/5 ML VIAL IVP ONE ×6 (09:43→11:20)
[2021-07-05] MEDS ORDERED: DILTIAZEM 125 MG in DEXTROSE 5% 100 ML IV SCH (09:55)
[2021-07-05] MEDS: amLODIPine 5 MG TAB PO SCH (10:05)
[2021-07-05] MEDS: LOSARTAN 50 MG TAB PO SCH (10:08)
[2021-07-05] MEDS: PANTOPRAZOLE 40 MG TABEC PO SCH (10:08)
[2021-07-05] MEDS: ASPIRIN 81 MG TAB.CHEW PO SCH (10:08)
[2021-07-05] MEDS: ATORVASTATIN 20 MG TAB PO SCH (10:09)
[2021-07-05] MEDS: AZITHROMYCIN 250 MG TAB PO SCH (10:14)
[2021-07-05] MEDS: LEVOTHYROXINE 0.1 MG TAB PO SCH (11:00)
--- NOTE | 2021-07-05 11:12 | NUR ---
BONI [phone] pt sister called for update, sister was informed that pt will be admitted to icu because of high heart rate.
--- NOTE | 2021-07-05 11:46 | NUR ---
Patient will be admitted to care of destiny black. Admited to icu. Will go to room 4. Belongings list completed. Report to riki doyle.
[2021-07-05] MEDS ORDERED: AMIODARONE 450 MG in DEXTROSE 5% 250 ML IV SCH (12:10)
[2021-07-05] MEDS ORDERED: DIGOXIN 0.25 MG/ML AMP IV SCH (12:16)
[2021-07-05] MEDS ORDERED: AMIODARONE 150 MG in DEXTROSE 5% 100 ML IV SCH (12:17)
[2021-07-05] MEDS ORDERED: hydrALAZINE 20 MG/ML VIAL IVP PRN (12:25)
--- NOTE | 2021-07-05 13:15 | NUR ---
PT ARRIVED AT UNIT VIA BED, TOLERATED WELL, PT AWAKE ALERT ABLE TO LET NEEDS KNOWN, POLISH SPEAKING. PT ON ROOM AIR SATURATING @ 88%, 2LPM O2 VIA NC APPLIED, PT CURRENTLY SATURATING @ 91%. ORIENT PT TO ROOM, BED, CALL LIGHT, STATED UNDERSTANDING. IV TO LEFT WRIST 20G PATENT INTACT, SL, AND TO RIGHT FA 22G, PATENT INTACT, INFUSING CARDIZEM DRIP @ 15MG/HR, INFUSING WELL. INITIAL ASSESSMENT DONE, ALL SAFETY PRECAUTION MET, MRSA SWAB TAKEN. WILL CONTINUE TO MONITOR.
--- NOTE | 2021-07-05 13:20 | NUR ---
pt transferred to room at this time bed 4 with riki doyle
[2021-07-05] MEDS: ENOXAPARIN 60 MG/0.6 ML SYR SUBQ SCH ×2 (13:41→20:51)
[2021-07-05] MEDS: NACL 0.9% 1,000 ML IV SCH (13:41)
--- NOTE | 2021-07-05 13:41 | NUR ---
AMIODARONE DRIP STARTED, PER DR HUFFMAN TO LANDEN CARDIMICHELLEM AND START PT ON AMIO DRIP. WILL CONTINUE WITH ORDERS.
--- NOTE | 2021-07-05 14:05 | NUR ---
AMIODARONE DRIP STARTED @ 1MG/MIN, WILL CONTINUE TO MONITOR.
--- NOTE | 2021-07-05 16:31 | NUR ---
DC PLANNIN YRS OLD FEMALE PATIENT WAS ADMITTED FROM HOME WITH A DX OF COPD EXACERBATION, HYPOXIA. PATIENT HAS A HX OF HTN AND ASTHMA. CXR SHOWED COPD NO ACUTE CARDIOPULMONARY DISEASE. CT CHEST NO PE. ON O2 2L/NC SATING 96% ADMINISTERED IVF, AND AMIODARONE DRIP. CONSULTED WITH PULMO AND CARDIO. DC PLAN PER PATIENT RESPOND TO THE TREATMENT. CM TO FOLLOW Addendum: 07/07/21 at 1148 by Radha Keith RN DC PLANNING: PER PRIMARY RN PT DE SAT ON RA TO 81% AND NEEDS HOME HO2. FAXED TO [facility]. CM TO FOLLOW Addendum: 07/07/21 at 1614 by Radha Keith RN DC PLANNING: [facility] DIRECT[facility] SPOKE WITH PT'S DAUGHTER EXPLAINED THE NEED FOR OXYGEN ANSWERS ALL QUESTIONS AND DAUGHTER BONI AGREED TO PAY HANDY FOR OXYGEN. RECEIVED A CALL FROM [facility] SPOKE WITH JARAD STATED THEY HAVE NO OXYGEN AVAILABLE AT THIS TIME, ACCEPTING HANDY PAY 550 FOR 3 MONTH AND 150/MONTH. [facility] PER [facility] WON'T TAKE PRIVATE PAY BUT CAN DO KIN WITH THE HOSPITAL. PER [facility] ACCEPT HANDY PAY $650 FOR 3 MONTH AND AFTER THAT 250/MONTH. NO O2 AVAILABLE AT THIS TIME. CM TO FOLLOW
--- NOTE | 2021-07-05 19:25 | NUR ---
ENDORSED PT TO [employer] NURSE FOR CONTINUOUS OF CARE.
--- NOTE | 2021-07-05 19:30 | NUR ---
RECEIVED PATIENT ON BED, AWAKE, ALERT AND ORIENTED, [place] SPEAKER. VENTILATING ON 2 L 02/NC S02 93%. CARDIACSCOPE SHOWS ON SINUS RHYTHM HR 90/MIN. ON AMIODARONE DRIP AT 1 MG/MIN VIA PERIPHERAL LINE ON RIGHT ARM; AND ON IVF NORMAL SALINE AT 60 ML/HR VIA G 20 IV CANNULA ON LEFT HAND; INTACT. ABDOMEN IS SOFT, ACTIVE BOWEL SOUNDS.
--- NOTE | 2021-07-05 20:05 | NUR ---
AMIODARONE DRIP REDUCED TO 0.5 MG.MIN TO RUN FOR 17 HRS PER PROTOCOL.
[2021-07-05] MEDS ORDERED: AMIODARONE 450 MG/9 ML VIAL IV ONE (21:32)
--- NOTE | 2021-07-05 22:30 | NUR ---
SETTLED TO SLEEP; CLOSE MONITORING AND OBSERVATION DONE.
[2021-07-06] VITALS (17 sets, daily range): BP systolic 89–166; BP diastolic 55–97
--- NOTE | 2021-07-06 04:30 | NUR ---
HR NOTED AROUND 65-67/MIN AND IN SINUS RHYTHM SINCE LAST NIGHT; AMIODARONE DRIP HOLD.
--- NOTE | 2021-07-06 05:00 | NUR ---
MORNING BED BATH DONE WITH MODERATE ASSISTANCE.
[2021-07-06] MEDS: NACL 0.9% 1,000 ML IV SCH (05:15)
[2021-07-06] MEDS: methylPREDNISolone SS 40 MG/ML VIAL IVP SCH ×2 (05:45→13:00)
[2021-07-06 06:51] LABS: ANION GAP 11.9 (8-16); CARBON DIOXIDE 28.2 mmol/L (21-32); CHLORIDE 107 mmol/L (98-107); CREATININE 0.6 mg/dL (0.6-1.3); GLUCOSE 128 mg/dL (74-106); POTASSIUM 3.1 mmol/L (3.5-5.1); SODIUM SERUM 144 mmol/L (136-145); UREA NITROGEN, BLOOD 12 mg/dL (7-18)
[2021-07-06 07:06] LABS: MAGNESIUM 2.3 mg/dL (1.8-2.4); PHOSPHORUS 2.8 mg/dL (2.5-4.9)
[2021-07-06 07:12] LABS: BASOPHILS % (AUTO) 0.1 % (0.0-2.0); HEMATOCRIT 32.9 % (36-48); HEMOGLOBIN 11.3 g/dL (12.0-16.0); LYMPHOCYTES # (AUTO) 0.4 K/uL (2.5-16.5); LYMPHOCYTES % (AUTO) 6.6 % (20.5-51.1); MEAN CORPUSCULAR HEMOGLOBIN 33 pg (27-31); MEAN CORPUSCULAR HGB CONC 35 g/dL (33-37); MONOCYTES # (AUTO) 0.2 K/uL (0.8-1.0); MONOCYTES % (AUTO) 3.6 % (1.7-9.3); NEUTROPHILS # (AUTO) 5.6 K/uL (1.8-7.7); NEUTROPHILS % (AUTO) 89.7 % (42.2-75.2); PLATELET COUNT (AUTO) 191 K/uL (140-450); RED BLOOD CELL COUNT(AUTO) 3.46 MIL/uL (4.20-5.40); RED CELL DISTRIBUTION WIDTH 13.6 % (11.6-13.7); WHITE BLOOD COUNT (AUTO) 6.2 K/uL (4.8-10.8)
--- NOTE | 2021-07-06 07:15 | NUR ---
ENDORSED TO AM SHIFT RN ROSIE FOR CONTINUITY OF CARE.
--- NOTE | 2021-07-06 07:30 | NUR ---
REPORT RECEIVED FOR NIGHT RN JOSSELYN. PATIENT STABLE. CONVERTED FROM AFIB TO SR DURING NIGHT. 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
[2021-07-06] MEDS: ALBUTEROL SULFATE/IPRATROPIU 3 ML SOL IH SCH ×3 (07:37→19:00)
[2021-07-06] MEDS: POTASSIUM CHLORIDE 10 MEQ TABER PO PRN (08:18)
[2021-07-06] MEDS: LOSARTAN 50 MG TAB PO SCH (08:18)
[2021-07-06] MEDS: AZITHROMYCIN 250 MG TAB PO SCH (08:19)
[2021-07-06] MEDS: LEVOTHYROXINE 0.1 MG TAB PO SCH (08:19)
[2021-07-06] MEDS: amLODIPine 5 MG TAB PO SCH (08:19)
[2021-07-06] MEDS: ASPIRIN 81 MG TAB.CHEW PO SCH (08:20)
[2021-07-06] MEDS: PANTOPRAZOLE 40 MG TABEC PO SCH (08:20)
[2021-07-06] MEDS: ENOXAPARIN 60 MG/0.6 ML SYR SUBQ SCH (08:24)
--- NOTE | 2021-07-06 08:30 | NUR ---
PATIENT ALERT AND SPEAKS ONLY DJIBOUTIAN. MOVES ALL EXTREMETIES EQUALLY. HEART SOUNDS REGULAR. POSTERIOR LUNG SOUNDS CLEAR ON RIGHT WITH DISTANT CRACKLES ON LEFT MID AND LOWER LOBES. SAO2 IN 90'S ON RA WITH NO SHORTNESS OF BREATH NOTED. ABDOMEN SOFT WITH BOWEL SOUNDS IN ALL 4 QUADRANTS. NO EDEMA NOTED. PERIPHERAL PULSES PALPABLE. SKIN INTACT AND DRY. Addendum: 07/06/21 at 1215 by Manisha Christianson RN PATIENT ON NC
[2021-07-06] MEDS: ATORVASTATIN 20 MG TAB PO SCH (09:00)
--- NOTE | 2021-07-06 09:00 | NUR ---
DR. MUSE HERE TO SEE AND ORDER TO TRANSFER GIVEN. MORNING MEDICATIONS GIVEN AND TOLERATED.
--- NOTE | 2021-07-06 12:28 | NUR ---
07/06/21 RD INITIAL ASSESSMENT COMPLETED PLEASE REFER TO NUTRITION ASSESSMENT UNDER CARE ACTIVITY FOR ESTIMATED NUTRITIONAL NEEDS. 1. CONTINUE CARDIAC DIET TOLERATED 2. PROVIDE ENSURE BID PER RD PROTOCOL 3. RD TO FOLLOW-UP 3-5 DAYS, MODERATE RISK REVIEWED BY CADEN VALDEZ RD
[2021-07-06] MEDS ORDERED: AMIODARONE 200 MG TAB PO SCH (13:00)
--- NOTE | 2021-07-06 18:30 | NUR ---
PATIENT TRANSFERRED VIA TO [facility]. REPORT GIVEN TO [facility] AT BEDSIDE. PATIENT STABLE. RHYTHM REMAINS SR. OXYGEN AT 2L NC.
--- NOTE | 2021-07-06 18:46 | NUR ---
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
--- NOTE | 2021-07-06 20:00 | NUR ---
RECEIVED REPORT OF PT IN STABLE CONDITION.RESP.UNLABORED W/O2 AT 2L/NC.2 SL PATENT.WILL START IVF.VS STABLE.HR IS SR.CALL LIGHT IN REACH.WILL CONT.MONITORING.
[2021-07-06] MEDS: AMIODARONE 200 MG TAB PO SCH (21:25)
[2021-07-06] MEDS: APIXABAN 2.5 MG TAB PO SCH (21:26)
[2021-07-07] VITALS: BP 139/77
--- NOTE | 2021-07-07 | NUR ---
SLEEPING W/O ANY DISTRESS.HR IS SR.
[2021-07-07 04:00] VITALS: BP 141/85
[2021-07-07] MEDS: NACL 0.9% 1,000 ML IV SCH ×2 (04:49→14:35)
[2021-07-07 06:49] LABS: HEMATOCRIT 33.3 % (36-48); HEMOGLOBIN 11.5 g/dL (12.0-16.0); LYMPHOCYTES # (AUTO) 0.8 K/uL (2.5-16.5); LYMPHOCYTES % (AUTO) 11.2 % (20.5-51.1); MEAN CORPUSCULAR HEMOGLOBIN 33 pg (27-31); MEAN CORPUSCULAR HGB CONC 35 g/dL (33-37); MEAN CORPUSCULAR VOLUME 94.6 fL (80-94); MONOCYTES # (AUTO) 0.6 K/uL (0.8-1.0); MONOCYTES % (AUTO) 8.2 % (1.7-9.3); NEUTROPHILS # (AUTO) 5.4 K/uL (1.8-7.7); NEUTROPHILS % (AUTO) 80.6 % (42.2-75.2); PLATELET COUNT (AUTO) 180 K/uL (140-450); RED BLOOD CELL COUNT(AUTO) 3.52 MIL/uL (4.20-5.40); RED CELL DISTRIBUTION WIDTH 13.6 % (11.6-13.7); WHITE BLOOD COUNT (AUTO) 6.7 K/uL (4.8-10.8)
--- NOTE | 2021-07-07 07:20 | NUR ---
SLEPT WELL.IVF OF NS AT 60ML/H INFUSING WELL.CALL LIGHT IN REACH.HR IS SR.RESP.UNLABORED W/O2.
--- NOTE | 2021-07-07 07:24 | NUR ---
PT HAS BEEN ENDORSED BY VENEREAL DISEASE INVESTIGATOR NURSE FOR CONTINUITY OF CARE, POC DISCUSSED. PT IS ALERT AND ORIENTED IN BED WITH EYES OPEN ON 2L NC SATING AT 94%. PT IS ON COVID PROTOCOL. PT IS ON TELE MONITOR SHOWING SR. PT HAS A RIGHT FA 22G RUNNING NS @ 60, AND LEFT HAND 20G SALINE LOCK. ALL SAFETY MEASURES IN PLACE, CALL LIGHT WITHIN REACH. WILL CONTINUE TO MONITOR.
[2021-07-07 07:28] LABS: ANION GAP 9.2 (8-16); CARBON DIOXIDE 31.9 mmol/L (21-32); CHLORIDE 107 mmol/L (98-107); CREATININE 0.6 mg/dL (0.6-1.3); GLUCOSE 94 mg/dL (74-106); POTASSIUM 3.1 mmol/L (3.5-5.1); SODIUM SERUM 145 mmol/L (136-145); UREA NITROGEN, BLOOD 9 mg/dL (7-18)
[2021-07-07 07:31] LABS: PHOSPHORUS 2.6 mg/dL (2.5-4.9)
[2021-07-07 08:00] VITALS: BP 138/75
[2021-07-07] MEDS ORDERED: AMIO400T3 PO (08:00)
[2021-07-07] MEDS ORDERED: APIX5TAB PO (08:01)
[2021-07-07] MEDS: ASPIRIN 81 MG TAB.CHEW PO SCH (08:57)
[2021-07-07] MEDS: AMIODARONE 200 MG TAB PO SCH (08:57)
[2021-07-07] MEDS: PANTOPRAZOLE 40 MG TABEC PO SCH (08:57)
[2021-07-07] MEDS: LOSARTAN 50 MG TAB PO SCH (08:57)
[2021-07-07] MEDS: amLODIPine 5 MG TAB PO SCH (08:57)
[2021-07-07] MEDS: ATORVASTATIN 20 MG TAB PO SCH (08:58)
[2021-07-07] MEDS: LEVOTHYROXINE 0.1 MG TAB PO SCH (08:58)
[2021-07-07] MEDS: AZITHROMYCIN 250 MG TAB PO SCH (08:58)
[2021-07-07] MEDS: APIXABAN 2.5 MG TAB PO SCH (08:59)
[2021-07-07] MEDS: ALBUTEROL SULFATE/IPRATROPIU 3 ML SOL IH SCH ×3 (09:38→18:56)
[2021-07-07] MEDS ORDERED: POTASSIUM CHLORIDE 10 MEQ TABER PO SCH ×2 (10:25→15:00)
--- NOTE | 2021-07-07 11:28 | NUR ---
REMOVED PT FROM NASAL CANNULA TO ASSESS, PT DESATURATED DOWN TO 81%. PLACED PT BACK ON NASAL CANNULA, 2L, AND PATIENT OXYGEN INCREASED BACK TO 92%.
[2021-07-07 12:00] VITALS: BP 148/79
--- NOTE | 2021-07-07 13:13 | NUR ---
CASE MANAGEMENT REPORTED PCR CAME BACK NEGATIVE.
--- NOTE | 2021-07-07 17:01 | NUR ---
SPOKE WITH CASE MANAGEMENT REGARDING PT BEING DISCHARGED, CASE MANAGEMENT STATED PT CAN NOT BE DISCHARGED BECAUSE THERE IS NO AVAILABLE HOME OXYGEN. CASE MANAGEMENT WILL TRY 07/08/21 TO SEE IF THERE IS AVAILABLE OXYGEN
--- NOTE | 2021-07-07 19:02 | NUR ---
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
--- NOTE | 2021-07-07 19:21 | NUR ---
RECEIVED CALL FROM [facility] THAT THE PT FAMILY IS WAITING FOR PT AND HAS THE OXYGEN.
--- NOTE | 2021-07-07 20:27 | NUR ---
FULL PATIENT EDUCATION HAS BEEN PROVIDED WITH PT AND PT DAUGHTER, GRANDDAUGHTER. ALL QUESTIONS AND BELONGINGS HAVE BEEN PROVIDED. NOTIFIED THE MD REGARDING THE PHARMACYS QUESTIONS ON THE MEDICATION, INFORMED THE FAMILY THE DR WILL NEED TO CALL PHARMACY TO ANSWER QUESTIONS. EDUCATED AND DEMONSTRATION OXYGEN. ALL DC PAPERWORK SIGNED.
== END 2021-07-07 20:30 | disposition home or self-care (01) | DRG 720 ==
LOC: MED 11:59 → MMU 20:19 → MIC 07-05 10:26 → MMU 07-06 18:30
DX: A41.9 Sepsis, unspecified organism (principal); J96.01 Acute respiratory failure with hypoxia; I21.A1 Myocardial infarction type 2; J44.1 Chronic obstructive pulmonary disease with (acute) exacerbation; J45.901 Unspecified asthma with (acute) exacerbation; I48.20 Chronic atrial fibrillation, unspecified; K44.9 Diaphragmatic hernia without obstruction or gangrene; I10 Essential (primary) hypertension; Z20.822 Contact with and (suspected) exposure to COVID-19; E78.5 Hyperlipidemia, unspecified; I25.10 Atherosclerotic heart disease of native coronary artery without angina pectoris; E03.9 Hypothyroidism, unspecified; J20.9 Acute bronchitis, unspecified; Z88.6 Allergy status to analgesic agent; Z79.899 Other long term (current) drug therapy; Z79.82 Long term (current) use of aspirin; Z79.01 Long term (current) use of anticoagulants
CPT/HCPCS: 36415; 71045; 71275; 80048; 80053; 81003; 82150; 83036; 83605; 83690; 83735; 83880; 84100; 84134; 84443; 84484; 85025; 85610; 85730; 87040; 87081; 87086; 87804; 93005; 94640; 96361; 96372; 96374; 99291; J0153; J0282; J0456; J0696; J1160; J1644; J1650; J1885; J2920; J2930; J3475; J3490; J7060; J7614; Q9967; U0003

== ENCOUNTER 2021-07-19 10:10 | Emergency (ER) | payer MEDICAID, SELFPAY ==
[~2021-07-19] VITALS: Ht 165.1 cm; Wt 55.8 kg
[~2021-07-19 10:10] MED LIST changes: +ALBU0.0912 IH; +AMIO400T3 PO; +APIX5TAB PO; +CEPH-588 PO; +DEC4 PO; -IBUP-2213 PO; -SULF-59 PO
[2021-07-19 11:25] VITALS: BP 130/76
[2021-07-19] MEDS ORDERED: ACETAMINOPHEN EXTRA STRENGTH 500 MG TAB PO ONE (13:35)
[2021-07-19 13:54] LABS: BASOPHILS % (AUTO) 0.7 % (0.0-2.0); EOSINOPHILS # (AUTO) 0.1 K/uL (0-0.4); EOSINOPHILS % (AUTO) 0.9 % (0.0-4.0); HEMATOCRIT 34.3 % (36-48); HEMOGLOBIN 11.9 g/dL (12.0-16.0); LYMPHOCYTES # (AUTO) 0.8 K/uL (2.5-16.5); LYMPHOCYTES % (AUTO) 14.2 % (20.5-51.1); MEAN CORPUSCULAR HEMOGLOBIN 33 pg (27-31); MEAN CORPUSCULAR HGB CONC 35 g/dL (33-37); MEAN CORPUSCULAR VOLUME 95.5 fL (80-94); MONOCYTES # (AUTO) 0.4 K/uL (0.8-1.0); MONOCYTES % (AUTO) 7.4 % (1.7-9.3); NEUTROPHILS # (AUTO) 4.6 K/uL (1.8-7.7); NEUTROPHILS % (AUTO) 76.8 % (42.2-75.2); PLATELET COUNT (AUTO) 227 K/uL (140-450); RED BLOOD CELL COUNT(AUTO) 3.59 MIL/uL (4.20-5.40); RED CELL DISTRIBUTION WIDTH 13.7 % (11.6-13.7); WHITE BLOOD COUNT (AUTO) 5.9 K/uL (4.8-10.8)
[2021-07-19] MEDS ORDERED: LID5T TP (14:55)
[2021-07-19] MEDS ORDERED: ACET-10509 PO (14:55)
[2021-07-19 15:06] LABS: ALBUMIN 3.1 g/dL (3.4-5.0); ANION GAP 8.7 (8-16); CARBON DIOXIDE 32.8 mmol/L (21-32); CHLORIDE 104 mmol/L (98-107); CREATININE 0.5 mg/dL (0.6-1.3); GLUCOSE 90 mg/dL (74-106); LIPASE 201 U/L (73-393); POTASSIUM 4.5 mmol/L (3.5-5.1); SODIUM SERUM 141 mmol/L (136-145); TOTAL BILIRUBIN 0.4 mg/dL (0.0-1.0); UREA NITROGEN, BLOOD 10 mg/dL (7-18)
[2021-07-19 15:17] LABS: ASPARTATE AMINOTRANSFERASE 16 U/L (15-37)
--- NOTE | 2021-07-19 15:53 | NUR ---
NO NURSING CARE GIVEN-Patient discharged with v/s stable. Written and verbal after care instructions given and explained. Patient alert, oriented and verbalized understanding of instructions. Ambulatory with steady gait. All questions addressed prior to discharge. ID band removed. Patient advised to follow up with PMD. Rx of GABAPENTIN, LIDODERM 5% given. Patient educated on indication of medication including possible reaction and side effects. Opportunity to ask questions provided and answered.
[2021-07-19] MEDS ORDERED: NAPR-1704 PO (15:56)
[2021-07-19] MEDS ORDERED: GABA300C PO (15:56)
[2021-07-19 16:48] VITALS: BP 133/75
== END 2021-07-19 15:53 | disposition home or self-care (01) ==
LOC: MED 10:10
DX: M19.90 Unspecified osteoarthritis, unspecified site (principal); I10 Essential (primary) hypertension; E06.9 Thyroiditis, unspecified; J45.909 Unspecified asthma, uncomplicated; Z88.8 Allergy status to other drugs, medicaments and biological substances
CPT/HCPCS: 36415; 80053; 81002; 83690; 85025; 99284